=== PATIENT | female | born 1935 | race Hispanic/Latino ===

== ENCOUNTER 2016-12-16 10:54 | Inpatient (IN) | payer MEDICARE, BC ==
[2016-12-16] MEDS ORDERED: Sodium Chloride 0.9% 1,000 ML IV STA (11:21)
[2016-12-16] MEDS ORDERED: Pantoprazole 40 MG in Sodium Chloride 0.9% 100 ML IV STA (11:21)
--- NOTE | 2016-12-16 11:25 | ED PDOC ---
Arrival/HPI - General Chief Complaint: GI Problem Time Seen by Provider: 12/16/16 11:03 Historian: Patient - History of Present Illness Narrative History of Present Illness (Text): 12/16/16 11:23 81 year old female presents to the emergency department with dark vomiting overnight. Patient reports some epigastric pain. Dairy Technologist states patient sees Dr. Johnson. Denies blood thinner use. Denies other complaints. Symptom Onset: Gradual Symptom Course: Unchanged Modifying Factors (Text): None Associated Symptoms (Text): None Past Medical History - Provider Review Nursing Documentation Reviewed: Yes - Infectious Disease Hx of Infectious Diseases: None - Tetanus Immunization Tetanus Immunization: Unknown - Reproductive Menopause: Yes - Cardiac Hx Hypertension: Yes - Neurological HX Cerebrovascular Accident: Yes - Psychiatric Hx Depression: No Hx Emotional Abuse: No Hx Physical Abuse: No Hx Substance Use: No - Past Surgical History Past Surgical History: Unable to Obtain - Surgical History Hx Hysterectomy: Yes - Anesthesia Hx Anesthesia: No - Suicidal Assessment Feels Threatened In Home Enviroment: No Family/Social History - Physician Review Nursing Documentation Reviewed: Yes Family/Social History: Unknown Family HX Smoking Status: Unknown If Ever Smoked Hx Alcohol Use: No Hx Substance Use: No Hx Substance Use Treatment: No Allergies/Home Meds Allergies/Adverse Reactions: Allergies Sulfa (Sulfonamide Antibiotics) Allergy (Verified 12/16/16 15:39) RASH Home Medications: Home Meds Medication Instructions Recorded Confirmed Atenolol [Tenormin] 25 mg PO DAILY 12/16/16 12/16/16 Atorvastatin [Lipitor] 10 mg PO DIN 12/16/16 12/16/16 Calcium Carbonate [Oscal] 0 mg PO DAILY 12/16/16 12/16/16 Chromagen 1 12/16/16 Clorazepate Dipotassium [Tranxene 3.75 mg PO PRN 12/16/16 12/16/16 T-Tab] Hydroxychloroquine Sulfate 200 mg PO DAILY 12/16/16 12/16/16 Tramadol HCl/Acetaminophen 1 tab PO DAILY 12/16/16 12/16/16 [Acetaminophen-Tramadol HCl 325 mg-37.5 mg] Valsartan/Hydrochlorothiazide 1 each PO DAILY 12/16/16 12/16/16 [Diovan Hct 160-12.5 mg Tab] Zolpidem [Ambien] 5 mg PO PRN PRN 12/16/16 12/16/16 amLODIPine [Norvasc] 10 mg PO DAILY 12/16/16 12/16/16 Review of Systems - Physician Review All systems were reviewed & negative as marked: Yes - Review of Systems Respiratory: absent: SOB Gastrointestinal: Abdominal Pain (epigastric), Vomiting (dark) Neurological: absent: Dizziness Physical Exam Vital Signs Reviewed: Yes Vital Signs Temp Pulse Resp BP Pulse Ox 12/16/16 15:24 95 H 16 126/74 96 12/16/16 11:02 99.1 F 90 18 124/71 96 Temperature: Afebrile Blood Pressure: Normal Pulse: Regular Respiratory Rate: Normal Appearance: Positive for: Well-Appearing, Non-Toxic, Comfortable Pain Distress: None Mental Status: Positive for: Alert and Oriented X 3 - Systems Exam Head: Present: Atraumatic, Normocephalic Pupils: Present: PERRL Extroacular Muscles: Present: EOMI Conjunctiva: Present: Normal Mouth: Present: Moist Mucous Membranes Neck: Present: Normal Range of Motion Respiratory/Chest: Present: Clear to Auscultation, Good Air Exchange. No: Respiratory Distress, Accessory Muscle Use Cardiovascular: Present: Regular Rate and Rhythm, Normal S1, S2. No: Murmurs Abdomen: Present: Tenderness (Epigastric), Normal Bowel Sounds. No: Distention , Peritoneal Signs Rectal: Present: Other (Minimal stool, guaiac negative.) Back: Present: Normal Inspection Upper Extremity: Present: Normal Inspection. No: Cyanosis, Edema Lower Extremity: Present: Normal Inspection. No: Edema Neurological: Present: GCS=15, CN II-XII Intact, Speech Normal Skin: Present: Warm, Dry, Normal Color. No: Rashes Psychiatric: Present: Alert, Oriented x 3, Normal Insight, Normal Concentration Medical Decision Making ED Course and Treatment: Impression: 81 year old female presents to the emergency department with dark vomiting overnight at 12:00AM. Differential Diagnosis include but are not limited to: Bleed secondary to peptic ulcer disease Plan: -- EKG, Chest X-ray -- Protonix, Zofran, IV fluids -- Labs -- Reassess and disposition Prior Visits: Notes and results from previous visits were reviewed. Patient last seen in ED on 06/28/13 for chest pain and discharged home. Progress Notes: Chest X-ray Assessment Specialist: Mane Rao MD IMPRESSION: No active disease 12/16/16 11:57 Patient evaluated at bedside by Dr. Johnson. Labs pending. 12/16/16 12:36 Noted drop in H&H. Dr. Johnson requests observation and GI evaluation, accepts patient for admission. Abdominal soft, minimal epigastric tenderness with history of peptic ulcer disease. Suspect bleeding secondary to peptic ulcer disease - Lab Interpretations Lab Results: 12/16/16 11:45 12/16/16 11:45 Lab Results 12/16/16 11:45: WBC 12.4 H D, RBC 3.39 L, Hgb 10.7 L, Hct 31.9 L, MCV 94.1, MCH 31.6, MCHC 33.5, RDW 14.1, Plt Count 511 H, MPV 9.6, Gran % 79.7 H, Lymph % ( Auto) 10.6 L, Kimball % (Auto) 8.2 H, Eos % (Auto) 1.2 L, Baso % (Auto) 0.3, Gran # 9.90 H, Lymph # 1.3, Kimball # 1.0 H, Eos # 0.2, Baso # 0.04, PT 11.1, INR 1.03, APTT 27.5, Sodium 139, Potassium 3.3 L, Chloride 95 L, Carbon Dioxide 32, Anion Gap 15, BUN 19, Creatinine 0.6, Est GFR ( Amer) > 60, Est GFR (Non-Af Amer) > 60, Random Glucose 98, Calcium 9.2, Total Bilirubin 0.7, AST 20, ALT 27 , Alkaline Phosphatase 72, Lactate Dehydrogenase 419, Total Creatine Kinase 53, Troponin I < 0.01, Total Protein 7.4, Albumin 4.2, Globulin 3.2, Albumin/ Globulin Ratio 1.3, Amylase 119, Lipase 77, Blood Type O POSITIVE, Antibody Screen Negative, BBK History Checked No verified bt - RAD Interpretation Radiology Orders: 12/16/16 11:21 CHEST PORTABLE [RAD] Stat - EKG Interpretation EKG Interpretation (Text): EKG shows NSR at [address]/T changes Interpreted by ED Physician: Yes Type: 12 lead EKG - Medication Orders Current Medication Orders: Sodium Chloride (Sodium Chloride 0.9%) 1,000 mls @ 100 mls/hr IV .Q10H STA Stop: 12/16/16 21:20 Last Admin: 12/16/16 11:36 Dose: 100 MLS/HR eMAR Start Stop Document 12/16/16 11:36 SF (Rec: 12/16/16 11:37 SF [email or web address]) Intravenous Solution Start Date 12/16/16 Start Time 11:36 End Date 12/16/16 Pantoprazole Sodium (Protonix 40mg Ivpb) 100 mls @ 20 mls/hr IVPB .Q5H [facility] Last Admin: 12/16/16 13:26 Dose: 20 MLS/HR eMAR Start Stop Document 12/16/16 13:26 SF (Rec: 12/16/16 13:26 SF [email or web address]) Intravenous Solution Start Date 12/16/16 Start Time 13:26 End Date 12/16/16 Potassium Chloride (Potassium Chloride 20 Meq/100 Ml) 100 mls @ 50 mls/hr IVPB ONCE ONE Stop: 12/16/16 17:47 Loratadine (Claritin) 10 mg PO DAILY [facility] Last Admin: 12/16/16 16:11 Dose: 10 MG Discontinued Medications Pantoprazole Sodium 40 mg/ (Sodium Chloride) 100 mls @ 400 mls/hr IV STAT STA Stop: 12/16/16 11:35 Last Admin: 12/16/16 11:54 Dose: 400 MLS/HR eMAR Start Stop Document 12/16/16 11:54 SF (Rec: 12/16/16 11:54 SF [email or web address]) Intravenous Solution Start Date 12/16/16 Start Time 11:54 End Date 12/16/16 End time 12:09 Total Infusion Time 15 Potassium Chloride (Potassium Chloride 10 Meq/100 Ml) 100 mls @ 100 mls/hr IVPB Q2H [facility] Stop: 12/16/16 15:44 Last Admin: 12/16/16 16:11 Dose: 100 MLS/HR eMAR Start Stop Document 12/16/16 16:11 EQ (Rec: 12/16/16 16:11 EQ [id number]) Intravenous Solution Start Date 12/16/16 Start Time 16:11 Ondansetron HCl (Zofran Inj) 4 mg IVP STAT STA Stop: 12/16/16 11:22 Last Admin: 12/16/16 11:37 Dose: 4 MG IVP Administration Document 12/16/16 11:37 SF (Rec: 12/16/16 11:37 SF [email or web address]) Charges for Administration # of IVP Administrations 1 Pantoprazole Sodium (Protonix Inj) Confirm Administered Dose 40 mg .ROUTE .STK- MED ONE Stop: 12/16/16 11:28 Last Admin: 12/16/16 11:53 Dose: - Scribe Statement The provider has reviewed the documentation as recorded by the Leyla Mcclain Provider Scribe Attestation: All medical record entries made by the Leyla were at my direction and personally dictated by me. I have reviewed the chart and agree that the record accurately reflects my personal performance of the history, physical exam, medical decision making, and the department course for this patient. I have also personally directed, reviewed, and agree with the discharge instructions and disposition. Disposition/Present on Arrival - Present on Arrival Any Indicators Present on Arrival: No History of DVT/PE: No History of Uncontrolled Diabetes: No Urinary Catheter: No History of Decub. Ulcer: No History Surgical Site Infection Following: None - Disposition Have Diagnosis and Disposition been Completed?: Yes Diagnosis: Gastrointestinal hemorrhage Disposition: HOSPITALIZED Disposition Time: 16:40 Condition: FAIR
[2016-12-16 12:09] LABS: ADD MANUAL DIFF? NO
[2016-12-16 12:12] LABS: BASO # 0.04 K/mm3 (0.0-2.0); BASO % 0.3 % (0.0-3.0); EOS # 0.2 (0.0-0.7); EOS % 1.2 % (1.5-5.0); GRAN % 79.7 % (50.0-68.0); HEMATOCRIT 31.9 % (36.0-48.0); LYMPH # 1.3 (1.2-3.4); LYMPH % 10.6 % (22.0-35.0); MEAN CELL VOLUME 94.1 fL (80.0-105.0); MEAN CORPUSCULAR HEMOGLOBIN 31.6 pg (25.0-35.0); MEAN CORPUSCULAR HGB CONC 33.5 g/dl (31.0-37.0); MEAN PLATELET VOLUME 9.6 fl (7.0-11.0); MONO % 8.2 % (1.0-6.0); PLATELET COUNT 511 10^3/uL (120.0-450.0); RED CELL DISTRIBUTION WIDTH 14.1 % (11.5-14.5); WHITE BLOOD COUNT 12.4 10^3/ul (4.5-11.0)
--- NOTE | 2016-12-16 12:16 | RAD ---
HISTORY: abd pain COMPARISON: 06/28/2013 FINDINGS: LUNGS: No active pulmonary disease. PLEURA: No significant pleural effusion identified, no pneumothorax apparent. CARDIOVASCULAR: Normal. OSSEOUS STRUCTURES: No significant abnormalities. VISUALIZED UPPER ABDOMEN: Normal. OTHER FINDINGS: None. IMPRESSION: No active disease.
[2016-12-16 12:22] LABS: ALB/GLOB RATIO 1.3 (1.1-1.8); ALKALINE PHOSPHATASE 72 U/L (38-133); ALT/SGPT 27 U/L (7-56); AMYLASE 119 U/L (35-125); AST/SGOT 20 U/L (15-39); BILIRUBIN,TOTAL 0.7 mg/dL (0.2-1.3); BLOOD UREA NITROGEN 19 mg/dL (7-21); CALCIUM 9.2 mg/dL (8.4-10.5); CARBON DIOXIDE 32 mmol/L (21-33); CHLORIDE 95 mmol/L (98-107); GFR AFRICAN-AMERICAN > 60; GLUCOSE,RANDOM 98 mg/dL (70-110); LIPASE 77 U/L (23-300); POTASSIUM 3.3 mmol/L (3.6-5.0); SODIUM 139 mmol/L (132-148); TOTAL PROTEIN 7.4 g/dL (5.8-8.3)
[2016-12-16 12:33] LABS: INR 1.03 (0.93-1.08); PARTIAL THROMBOPLASTIN TIME 27.5 Seconds (23.7-30.8); TROPONIN I < 0.01 ng/mL
[2016-12-16] MEDS: Potassium Chloride 10 mEq 100 ML IVPB SCH ×2 (13:26→16:11)
[2016-12-16] MEDS: Pantoprazole 40mg/100ml IVPB 100 ML IVPB SCH ×3 (13:26→21:49)
[2016-12-16 14:20] LABS: PH,URINE 6.5 (4.7-8.0); URINE BILIRUBIN NEGATIVE (NEGATIVE); URINE BLOOD NEGATIVE (NEGATIVE); URINE GLUCOSE (UA) NEGATIVE (NEGATIVE); URINE KETONE NEGATIVE (NEGATIVE); URINE LEUKOCYTE ESTERASE NEGATIVE Leu/uL (NEGATIVE); URINE PROTEIN NEGATIVE mg/dL (<30 mg/dL); URINE UROBILINOGEN 0.2 E.U./dL (<1 E.U./dL)
[2016-12-16 14:21] LABS: URINE APPEARANCE CLEAR (CLEAR); URINE COLOR YELLOW (YELLOW)
--- NOTE | 2016-12-16 14:37 | CARD ---
APPROVED REPORT EKG Measurement Heart [id number] <Conclusion> Sinus rhythm with premature supraventricular complexes Otherwise normal ECG
--- NOTE | 2016-12-16 15:01 | CP.PCM.CON ---
<Juan Salmon - Last Filed: 12/16/16 15:50> History of Present Illness - History of Present Illness History of Present Illness: This is a general surgery consult note for Dr. Johnson. CC: intermittent epigastric pain and hematemesis x 4 weeks HPI: 81 yo F with PMHx of GI bleeding, gastric ulcer, and HTN presents to ED C/ O intermittent epigastric pain and hematemesis x 4 weeks. Episodes occur 1 to 2 times per week and follow food intake 3 to 4 hours prior to vomiting. Vomitus consists of chyme mixed with blood or coffee-ground emesis. Pt denies fevers, chills, recent weight loss, nausea, diarrhea, constipation, dizziness, and palpitations. PMHx: GI bleeding, gastric ulcer, HTN, CVA, cerebral palsy, rheumatoid palsy, developmental dysplasia of the hip PSHx: hysterectomy, surgery to correct DDH All: sulfa, sulfonamide (rash) FHx: mother had CVA. Father had colon ca. Review of Systems - Constitutional Constitutional: absent: Chills, Fever, Weight Loss - Cardiovascular Cardiovascular: absent: Dyspnea, Dyspnea on Exertion, Irregular Heart Rhythm, Lightheadedness, Orthopnea, Palpitations, Syncope - Respiratory Respiratory: absent: Hemoptysis, Dyspnea on Exertion - Gastrointestinal Gastrointestinal: Abdominal Pain, Coffee Ground Emesis, Hematemesis. absent: Change in Bowel Habits, Change in Stool Character, Constipation, Diarrhea, Loose Stools, Nausea - Musculoskeletal Musculoskeletal: Deformity, Muscle Weakness, Stiffness - Integumentary Integumentary: Pruritus - Neurological Neurological: Abnormal Movements, Abnormal Speech, Lack of Coordination Past Patient History - Infectious Disease Hx of Infectious Diseases: None - Tetanus Immunizations Tetanus Immunization: Unknown - Past Social History Smoking Status: Unknown If Ever Smoked - CARDIAC Hx Hypertension: Yes - NEUROLOGICAL HX Cerebrovascular Accident: Yes - MUSCULOSKELETAL/RHEUMATOLOGICAL Hx Rheumatoid Arthritis: Yes - GASTROINTESTINAL Hx Gastrointestinal Disorders: Yes Hx Ulcer: Yes - PSYCHIATRIC Hx Depression: No Hx Emotional Abuse: No Hx Physical Abuse: No Hx Substance Use: No - SURGICAL HISTORY Hx Hysterectomy: Yes - ANESTHESIA Hx Anesthesia: No Meds Allergies/Adverse Reactions: Allergies Allergy/AdvReac Type Severity Reaction Status Date / Time Sulfa (Sulfonamide Allergy RASH Verified 12/16/16 15:39 Antibiotics) - Medications Medications: Current Medications Sodium Chloride (Sodium Chloride 0.9%) 1,000 mls @ 100 mls/hr IV .Q10H STA Stop: 12/16/16 21:20 Last Admin: 12/16/16 11:36 Dose: 100 mls/hr Pantoprazole Sodium (Protonix 40mg Ivpb) 100 mls @ 20 mls/hr IVPB .Q5H [facility] Last Admin: 12/16/16 13:26 Dose: 20 mls/hr Potassium Chloride (Potassium Chloride 10 Meq/100 Ml) 100 mls @ 100 mls/hr IVPB Q2H [facility] Stop: 12/16/16 15:44 Last Admin: 12/16/16 13:26 Dose: 100 mls/hr Loratadine (Claritin) 10 mg PO DAILY [facility] Physical Exam - Constitutional Appears: Non-toxic, No Acute Distress - Head Exam Head Exam: ATRAUMATIC, NORMOCEPHALIC - Eye Exam Eye Exam: Normal appearance, PERRL. absent: Conjunctival injection, Nystagmus, Periorbital swelling, Scleral icterus Pupil Exam: NORMAL ACCOMODATION, PERRL - ENT Exam ENT Exam: Mucous Membranes Moist, Normal Exam, Normal External Ear Exam, Normal Oropharynx - Neck Exam Neck exam: Positive for: Full Rom, Normal Inspection. Negative for: Lymphadenopathy, Meningismus, Tenderness, Thyromegaly - Respiratory Exam Respiratory Exam: Clear to Auscultation Bilateral, NORMAL BREATHING PATTERN. absent: Accessory Muscle Use, Chest Wall Tenderness, Decreased Breath Sounds, Prolonged Expiratory Phase, Rales, Rhonchi, Wheezes, Respiratory Distress, Stridor - Cardiovascular Exam Cardiovascular Exam: REGULAR RHYTHM, RRR, +S1, +S2. absent: Bradycardia, Tachycardia, Clicks, Diastolic murmur, Gallop, Irregular Rhythm, JVD, Rubs, +S4 , Systolic Murmur - GI/Abdominal Exam GI & Abdominal Exam: Hyperactive Bowel Sounds, Soft. absent: Bruit, Diminished Bowel Sounds, Distended, Firm, Hernia, Mass, Organomegaly, Pulsatile Mass, Rebound, Rigid, Tenderness - Rectal Exam Rectal Exam: Deferred - Extremities Exam Extremities exam: Positive for: normal inspection. Negative for: joint swelling , pedal edema, tenderness - Neurological Exam Neurological exam: Alert, CN II-XII Intact - Psychiatric Exam Psychiatric exam: Normal Affect - Skin Skin Exam: Intact, Pallor, Warm Results - Vital Signs Recent Vital Signs: Last Vital Signs Temp 99.1 F 12/16/16 11:02 Pulse 90 12/16/16 11:02 Resp 18 12/16/16 11:02 BP 124/71 12/16/16 11:02 Pulse Ox 96 12/16/16 11:02 - Labs Result Diagrams: 12/16/16 11:45 12/16/16 11:45 Labs: Laboratory Results - last 24 hr 12/16/16 14:00 Urine Color Yellow Urine Appearance Clear Urine pH 6.5 Ur Specific Arpin 1.015 Urine Protein Negative Urine Glucose (UA) Negative Urine Ketones Negative Urine Blood Negative Urine Nitrate Negative Urine Bilirubin Negative Urine Urobilinogen 0.2 Ur Leukocyte Esterase Negative Assessment & Plan - Assessment and Plan (Free Text) Assessment: Assessment: - This is an 81 yo F with PMHx of GI bleeding and gastric ulcer C/O intermittent epigastric pain and hematemesis most likely secondary to gastric ulcer and H. pylori infection. Plan: - KCl. - clear liquid diet - Rx omeprazole, loratadine. - Follow hemoglobin and hematocrit in AM. - Consulte GI. Appreciate recommendations. - H. pylori serum Ag. <Hitesh Johnson - Last Filed: 12/16/16 18:31> Meds - Medications Medications: Current Medications Sodium Chloride (Sodium Chloride 0.9%) 1,000 mls @ 100 mls/hr IV .Q10H STA Stop: 12/16/16 21:20 Last Admin: 12/16/16 11:36 Dose: 100 mls/hr Pantoprazole Sodium (Protonix 40mg Ivpb) 100 mls @ 20 mls/hr IVPB .Q5H [facility] Last Admin: 12/16/16 13:26 Dose: 20 mls/hr Loratadine (Claritin) 10 mg PO DAILY [facility] Last Admin: 12/16/16 16:11 Dose: 10 mg Results - Vital Signs Recent Vital Signs: Last Vital Signs Temp 98 F 12/16/16 17:48 Pulse 92 H 12/16/16 17:48 Resp 18 12/16/16 17:48 BP 128/65 12/16/16 17:48 Pulse Ox 95 12/16/16 17:48 - Labs Result Diagrams: 12/16/16 11:45 12/16/16 11:45 Labs: Laboratory Results - last 24 hr 04/17/17 04/17/17 14:00 15:15 Urine Color Yellow Urine Appearance Clear Urine pH 6.5 Ur Specific Arpin 1.015 Urine Protein Negative Urine Glucose (UA) Negative Urine Ketones Negative Urine Blood Negative Urine Nitrate Negative Urine Bilirubin Negative Urine Urobilinogen 0.2 Ur Leukocyte Esterase Negative Blood Type Confirm O POSITIVE Assessment & Plan - Assessment and Plan (Free Text) Assessment: This Report is a History and Physical Exam not consultation Done under my direct supervision Adam Johnson MD FACS
[2016-12-16] MEDS ORDERED: Potassium Chloride 20 mEq 100 ML IVPB ONE (15:48)
--- NOTE | 2016-12-16 19:59 | CON ---
DATE: 12/16/2016 This patient was seen and evaluated earlier in the Emergency Room. This is an 81-year-old patient wi th a history of rheumatoid arthritis, developmental dysplasia of the hip, gastric ulcer, status post cerebrovascular accident, cerebral palsy, was found to have coffee ground vomitus earlier today and s he was brought to the Emergency Room. The patient has been taken care of by leather tanner at home, and h er friend visits at least 3 times a week. The patient denies any abdominal pain. No further episode s of vomiting noticed in the ER. OTHER PAST MEDICAL HISTORY: Significant for gastrointestinal bleeding. The patient did have bleedin g in 2010; found to have gastric ulcers, duodenal ulcers. The patient has history of NSAID in the [facility] ([place] The patient's H. pylori serology at that time was negative. Her other past medical history was significant for hysterectomy, surgery for correction of the DDH. ALLERGIES: SULFA. FAMILY HISTORY: Positive for father had a colon carcinoma. REVIEW OF SYSTEMS: Positive as above; other systems reviewed. PHYSICAL EXAMINATION: GENERAL: The patient is lying on the bed, not in acute distress, with a temperature 98, pulse 92, bl ood pressure 128/65. HEENT: Atraumatic, anicteric. NECK: Supple. HEART: S1, S2 heard. LUNGS: Bilateral normal vesicular breath sounds. ABDOMEN: Soft. There is no mass palpable. No tenderness. EXTREMITIES: No mass palpable. No tenderness. No edema. No cyanosis. LABORATORY DATA: Hemoglobin 10.7, hematocrit 31.9, WBC is 12.4, platelets 511, BUN 19, creatinine 0. 9. IMPRESSION: This 81-year-old patient with a past medical history of gastric ulcer, gastrointestinal bleeding in 2010, admitted with coffee ground vomitus and hemoglobin was 10.7. Her hemoglobin in 2016 was 13.1. Clearly there is a significant drop in the hemoglobin. The differential diagnosis sh ould include peptic ulcer disease, gastric ulcer, duodenal ulcer and erosive esophagitis to be consid ered and lower gastrointestinal etiology also is considered. 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 I would recommend: 1. Followup of the hemoglobin and hematocrit. 2. IV Protonix. 3. I will keep the patient n.p.o. except medication if the patient can tolerate the p.o. medication. 4. Will continue to closely follow up her care. 5. I did discuss with the patient at length. The patient has been told about the need for endoscopy to further evaluate in view of the significant coffee ground vomitus and drop in blood count, and th e patient is agreeable. At the present time, will be considered ____ tomorrow. 6. Will also discuss with the patient's sister (Delaney Monzon - telephone number is [phone]). Thank you very much for allowing us to participate in the care of the patient. Erika Grey MD cc: [id number] TT: 12/16/2016 19:59:11 Confirmation # [id number] Dictation # [id number] mn
--- NOTE | 2016-12-16 22:13 | CP.PCM.PN ---
Subjective - Date & Time of Evaluation Date of Evaluation: 12/16/16 Time of Evaluation: 22:07 - Subjective Subjective: S: Patient seen at bedside. Requests a sleeping pill. States that she always takes ambien at home. She requests an ambien. Has no other complaints at this time. Pertinent medical record was reviewed. O: Last Vital Signs 3 Temp 98 F 12/16/16 17:48 Pulse 89 12/16/16 18:00 Resp 18 12/16/16 17:48 BP 128/65 12/16/16 17:48 Pulse Ox 95 12/16/16 17:48 Awake, alert, not in distress. LUNGS:Normal breathing pattern. A:Adjustment insomnia. P:Ambien 5 mg PO x 1. Objective - Vital Signs/Intake and Output Vital Signs (last 24 hours): Temp Pulse Resp BP Pulse Ox 98 F 89 18 128/65 95 12/16/16 17:48 12/16/16 18:00 12/16/16 17:48 12/16/16 17:48 12/16/16 17:48 - Medications Medications: Current Medications Pantoprazole Sodium (Protonix 40mg Ivpb) 100 mls @ 20 mls/hr IVPB .Q5H [facility] Last Admin: 12/16/16 21:49 Dose: 20 mls/hr Loratadine (Claritin) 10 mg PO DAILY [facility] Last Admin: 12/16/16 16:11 Dose: 10 mg Zolpidem Tartrate (Ambien) 5 mg PO STAT STA PRN Reason: Protocol Stop: 12/16/16 22:07 - Labs Labs: PT 11.1 Seconds (9.9-11.8) 12/16/16 11:45 INR 1.03 (0.93-1.08) 12/16/16 11:45 APTT 27.5 Seconds (23.7-30.8) 12/16/16 11:45
[2016-12-16 23:08] VITALS: BMI 25.9
[2016-12-16] MEDS ORDERED: Pneumococcal 23-Valent Vaccine IM ONE (23:08)
[2016-12-17] MEDS: Pantoprazole 40mg/100ml IVPB 100 ML IVPB SCH ×4 (04:21→22:00)
[2016-12-17] MEDS ORDERED: CLORAZEPATE DIPOTASSIUM 3.75 MG PO SCH (05:15)
[2016-12-17] MEDS: Sodium Chloride 0.9% 1,000 ML IV SCH ×2 (06:41→18:42)
[2016-12-17 07:02] LABS: ADD MANUAL DIFF? NO
[2016-12-17 07:13] LABS: BASO # 0.05 K/mm3 (0.0-2.0); BASO % 0.4 % (0.0-3.0); EOS # 0.6 (0.0-0.7); EOS % 4.8 % (1.5-5.0); GRAN # 9.46 (1.4-6.5); GRAN % 75.1 % (50.0-68.0); HEMATOCRIT 28.2 % (36.0-48.0); LYMPH # 1.6 (1.2-3.4); LYMPH % 12.6 % (22.0-35.0); MEAN CELL VOLUME 94.9 fL (80.0-105.0); MEAN CORPUSCULAR HEMOGLOBIN 31.6 pg (25.0-35.0); MEAN CORPUSCULAR HGB CONC 33.3 g/dl (31.0-37.0); MEAN PLATELET VOLUME 9.5 fl (7.0-11.0); MONO # 0.9 (0.1-0.6); MONO % 7.1 % (1.0-6.0); PLATELET COUNT 465 10^3/uL (120.0-450.0); RED CELL DISTRIBUTION WIDTH 14.3 % (11.5-14.5); WHITE BLOOD COUNT 12.6 10^3/ul (4.5-11.0)
--- NOTE | 2016-12-17 07:32 | CP.PCM.PCO ---
Physician Communication Note - Physician Communication Note Physician Communication Note: HgB down 9.4-For EGD today
[2016-12-17] MEDS ORDERED: Potassium Chloride 20 mEq 100 ML IVPB ONE (08:24)
[2016-12-17 08:41] LABS: ALB/GLOB RATIO 1.3 (1.1-1.8); ALKALINE PHOSPHATASE 60 U/L (38-133); ALT/SGPT 28 U/L (7-56); AST/SGOT 17 U/L (15-39); BILIRUBIN,TOTAL 0.8 mg/dL (0.2-1.3); BLOOD UREA NITROGEN 12 mg/dL (7-21); CALCIUM 8.5 mg/dL (8.4-10.5); CARBON DIOXIDE 29 mmol/L (21-33); CHLORIDE 103 mmol/L (98-107); GFR AFRICAN-AMERICAN > 60; GLUCOSE,RANDOM 72 mg/dL (70-110); POTASSIUM 3.6 mmol/L (3.6-5.0); SODIUM 142 mmol/L (132-148); TOTAL PROTEIN 5.9 g/dL (5.8-8.3)
[2016-12-17] MEDS: Albuterol-Ipratrop 3 mg / 0.5 (3 ml) UD IH SCH ×2 (13:31→20:19)
[2016-12-17] MEDS ORDERED: Etomidate 20 mg/10ml Inj IV ONE (16:56)
[2016-12-17] MEDS ORDERED: Propofol 10 mg/ml Inj (20 ML) ONE (16:56)
--- NOTE | 2016-12-17 18:24 | CP.PCM.PCO ---
Physician Communication Note - Physician Communication Note Physician Communication Note: Dx Severe Esophageal Ulcerations=Etiology Bleeding
[2016-12-17] MEDS: Multivitamin With Minerals Tab PO SCH (18:42)
[2016-12-17] MEDS: TraMADol/Apap 37.5/325 mg Tab PO SCH (18:43)
--- NOTE | 2016-12-17 23:02 | CP.PCM.PN ---
Subjective - Date & Time of Evaluation Date of Evaluation: 12/17/16 Time of Evaluation: 22:57 - Subjective Subjective: S:Patient requested sleeping pill again. States that she takes Ambien 5 mg daily at home. Has no other acute symptoms now. Pertinent medical record was reviewed. O: Last Vital Signs 3 Temp 98.8 F 12/17/16 17:51 Pulse 90 12/17/16 18:42 Resp 15 12/17/16 17:51 BP 150/75 12/17/16 18:42 Pulse Ox 97 12/17/16 17:51 Awake, alert, not in distress. LUNGS:Normal breathing pattern. A:Adjustment insomnia. P:Ambien 5 mg PO stat. Objective - Vital Signs/Intake and Output Vital Signs (last 24 hours): Temp Pulse Resp BP Pulse Ox 98.8 F 90 15 150/75 97 12/17/16 17:51 12/17/16 18:42 12/17/16 17:51 12/17/16 18:42 12/17/16 17:51 Intake and Output: 12/17/16 12/18/16 18:59 06:59 Intake Total 75 Output Total 600 Balance -525 - Medications Medications: Current Medications Albuterol/Ipratropium (Duoneb 3 Mg/0.5 Mg (3 Ml) Ud) 3 ml IH [id number] [facility] Last Admin: 12/17/16 20:19 Dose: 3 ml Albuterol/Ipratropium (Duoneb 3 Mg/0.5 Mg (3 Ml) Ud) 3 ml IH Q2H PRN PRN Reason: Shortness of Breath Amlodipine Besylate (Norvasc) 10 mg PO DAILY [facility] Last Admin: 12/17/16 18:40 Dose: 10 mg Atenolol (Tenormin) 25 mg PO DAILY [facility] Last Admin: 12/17/16 18:42 Dose: 25 mg Atorvastatin Calcium (Lipitor) 10 mg PO DIN [facility] Last Admin: 12/17/16 18:39 Dose: 10 mg Hydrochlorothiazide (Microzide) 12.5 mg PO DAILY [facility] Last Admin: 12/17/16 18:41 Dose: 12.5 mg Hydroxychloroquine Sulfate (Plaquenil) 200 mg PO DAILY [facility] Last Admin: 12/17/16 18:41 Dose: 200 mg Pantoprazole Sodium (Protonix 40mg Ivpb) 100 mls @ 20 mls/hr IVPB .Q5H [facility] Last Admin: 12/17/16 22:00 Dose: 20 mls/hr Sodium Chloride (Sodium Chloride 0.9%) 1,000 mls @ 100 mls/hr IV .Q10H [facility] Last Admin: 12/17/16 18:42 Dose: 100 mls/hr Loratadine (Claritin) 10 mg PO DAILY [facility] Last Admin: 12/17/16 18:39 Dose: 10 mg Losartan Potassium (Cozaar) 100 mg PO DAILY [facility] Last Admin: 12/17/16 18:39 Dose: 100 mg Multivitamins/Minerals (Therapeutic-M Tab) 1 tab PO DAILY [facility] Last Admin: 12/17/16 18:42 Dose: 1 tab Non-Formulary Medication (Clorazepate Dipotassium [Tranxene T-Tab]) 3.75 mg PO PRN [facility] Sucralfate (Carafate Tab) 1 gm PO BID [facility] Last Admin: 12/17/16 18:45 Dose: 1 gm Tramadol/Acetaminophen (Ultracet 37.5/325 Mg) 1 tab PO DAILY [facility] Last Admin: 12/17/16 18:43 Dose: Not Given - Labs Labs: 12/17/16 06:30 12/17/16 06:30 PT 11.1 Seconds (9.9-11.8) 12/16/16 11:45 INR 1.03 (0.93-1.08) 12/16/16 11:45 APTT 27.5 Seconds (23.7-30.8) 12/16/16 11:45
[2016-12-17] MEDS: Albuterol-Ipratrop 3 mg / 0.5 (3 ml) UD IH PRN (23:16)
--- NOTE | 2016-12-17 23:22 | PN ---
DATE: 12/17/2016 SUBJECTIVE: This patient has no further episodes of vomiting blood. Comfortable. PHYSICAL EXAMINATION: VITAL SIGNS: Afebrile, blood pressure is 150/75, pulse 90. HEENT: Atraumatic, anicteric. NECK: Supple. HEART: S1, S2 heard. LUNGS: Bilateral normal vesicular breath sounds. ABDOMEN: Soft. There is no tenderness. LABORATORY DATA: Hemoglobin 9.4, hematocrit 28.2, WBC is 12.6, platelets of 465. The patient underw ent . ASSESSMENT: This 81-year-old patient with a past history of cerebral palsy, status post cerebrovascu lar accident, questionable rheumatoid, admitted with a history of gastrointestinal bleeding, gastric and duodenal ulcers in the past, admitted with coffee ground vomitus. Informed consent was obtained. The patient went for upper GI. Upper GI endoscopy revealed LA grade C esophagitis with esophageal ulcerations extending up to 25 cm level, more than 11 cm of esophageal area had multiple large ulcera tions. The patient also has a cm of hiatus hernia which is combined type of hernia. RECOMMENDATIONS: We would recommend: 1. To continue the high dose PPI. 2. The patient would benefit from the pureed diet or soft diet, chew it well. One of the possibilit ies of this ulceration could be related to the food . The patient may benefit with repeating en doscopy in about 2 months' time to evaluate the healing of the ulceration. Thank you very much for allowing us to participate in the care of the patient. Erika Grye MD cc: [id number] TT: 12/17/2016 23:21:50 Confirmation # [id number] Dictation # [id number]
[2016-12-18] MEDS: Albuterol-Ipratrop 3 mg / 0.5 (3 ml) UD IH SCH ×4 (01:38→19:55)
[2016-12-18] MEDS: Pantoprazole 40mg/100ml IVPB 100 ML IVPB SCH ×2 (02:29→08:01)
[2016-12-18 07:30] LABS: HEMATOCRIT 26.5 % (36.0-48.0); MEAN CELL VOLUME 95.3 fL (80.0-105.0); MEAN CORPUSCULAR HGB CONC 33.6 g/dl (31.0-37.0); MEAN PLATELET VOLUME 9.5 fl (7.0-11.0); RED CELL DISTRIBUTION WIDTH 14.2 % (11.5-14.5); WHITE BLOOD COUNT 13.7 10^3/ul (4.5-11.0)
[2016-12-18 07:37] LABS: ALB/GLOB RATIO 1.1 (1.1-1.8); ALKALINE PHOSPHATASE 51 U/L (38-133); ALT/SGPT 29 U/L (7-56); AST/SGOT 26 U/L (15-39); BILIRUBIN,TOTAL 0.8 mg/dL (0.2-1.3); BLOOD UREA NITROGEN 7 mg/dL (7-21); CALCIUM 7.8 mg/dL (8.4-10.5); CARBON DIOXIDE 28 mmol/L (21-33); CHLORIDE 105 mmol/L (98-107); GFR AFRICAN-AMERICAN > 60; GLUCOSE,RANDOM 75 mg/dL (70-110); POTASSIUM 3.5 mmol/L (3.6-5.0); SODIUM 140 mmol/L (132-148); TOTAL PROTEIN 6.1 g/dL (5.8-8.3)
--- NOTE | 2016-12-18 07:53 | CP.PCM.PCO ---
Physician Communication Note - Physician Communication Note Physician Communication Note: HgB 8.9/Rx started-?liquids PO
[2016-12-18] MEDS ORDERED: Potassium Chloride 40 mEq/30 ml LIQ UD PO ONE (08:24)
[2016-12-18] MEDS ORDERED: Sodium Chloride 0.9% 1,000 ML IV SCH (09:08)
--- NOTE | 2016-12-18 09:26 | PQF ANEMIA ---
This form is a permanent part of the medical record Dr. Johnson, Please document type and severity of anemia present in this patient. Clarification of your documentation is requested to better reflect the severity of illness and intensity of treatment of your patient. Indicators present [x] Anemia [x] Drop in H&H from []_10.7/31.9__ to []__8.9/26.5_ [] Hypotension [x] GI Bleed [] Transfusion(s) [] Acute bleed other sites [] Tachycardia [] Surgical Procedure Blood Loss (expected not a complication) Other:[x]___Finding of esophageal ulcer on EGD___ Location in the medical record that reflects the above clinical findings: [] Treatment Provided: [] PHYSICIAN'S RESPONSE Based on your medical judgment of the clinical indicators outlined above, are you treating this patient for a known or suspected: [] Acute blood loss anemia [] Chronic blood loss anemia [x] Acute on Chronic blood loss anemia [] Anemia due to malignancy [] Anemia due to chemotherapy or radiation therapy [] Anemia of Chronic Disease, please specify: [] [x] Other, please indicate type of anemia [xEsophageal ulceration]____ [] If Unable to Determine, please check the box, sign and date. Present On Admission (POA) Indicator: [x] Present at the time of admission [] Not present at the time of admission [] Clinically Undetermined In responding to this query, please exercise your independent professional judgment. The fact that a question is asked does not imply that any particular answer is desired or expected. Thank you for your clarification on this documentation. If you have any questions please call:[ ] * Thank you, [ ]Kamryn Erazo [facility] #[id number] bioprocessing manufacturing technician LOVELY
[2016-12-18] MEDS: TraMADol/Apap 37.5/325 mg Tab PO SCH (11:39)
[2016-12-18] MEDS: Multivitamin With Minerals Tab PO SCH (11:39)
[2016-12-18 12:33] LABS: VITAMIN D 25 OH TOTAL 34.8 NG/ML (30.0-100.0)
[2016-12-18 14:13] LABS: FOLATE > 20.0 ng/mL
[2016-12-18 15:52] LABS: ADD MANUAL DIFF? NO
[2016-12-18 16:03] LABS: BASO # 0.05 K/mm3 (0.0-2.0); BASO % 0.4 % (0.0-3.0); EOS # 0.7 (0.0-0.7); EOS % 4.9 % (1.5-5.0); GRAN # 10.39 (1.4-6.5); GRAN % 72.9 % (50.0-68.0); HEMATOCRIT 27.6 % (36.0-48.0); LYMPH % 14.1 % (22.0-35.0); MEAN CELL VOLUME 94.8 fL (80.0-105.0); MEAN CORPUSCULAR HEMOGLOBIN 31.3 pg (25.0-35.0); MEAN PLATELET VOLUME 9.3 fl (7.0-11.0); MONO # 1.1 (0.1-0.6); MONO % 7.7 % (1.0-6.0); PLATELET COUNT 453 10^3/uL (120.0-450.0); RED CELL DISTRIBUTION WIDTH 14.2 % (11.5-14.5); WHITE BLOOD COUNT 14.2 10^3/ul (4.5-11.0)
[2016-12-18] MEDS: Pantoprazole 40 mg EC Tab PO SCH (17:51)
[2016-12-18] MEDS: Albuterol-Ipratrop 3 mg / 0.5 (3 ml) UD IH PRN (23:07)
--- NOTE | 2016-12-18 23:38 | PN ---
DATE: 12/18/2016 SUBJECTIVE: This patient was seen and evaluated earlier and I spoke with the patient's caregiver who was also at bedside. The patient is on a pureed diet, tolerating well. PHYSICAL EXAMINATION: VITAL SIGNS: Temperature is 99, blood pressure is 96/63, pulse 68. HEENT: Atraumatic, anicteric. NECK: Supple. HEART: S1, S2 heard. LUNGS: Bilateral air entry present. ABDOMEN: Soft. No tenderness. LABORATORY DATA: The patient's hemoglobin is 9.1, hematocrit 27.6, WBC 14.2, platelets 453. BUN 7, creatinine 0.5. IMPRESSION: This is an 81-year-old patient who has a history of cerebral palsy, cerebrovascular acci dent, question of rheumatoid, admitted with gastrointestinal bleeding and coffee ground vomitus. Upp er gastrointestinal endoscopy revealed multiple esophageal ulcerations extending from 25 cm level of the esophagus to 35 cm level, with endogastritis. No duodenal ulcers, no gastric ulcer noticed. The likely cause for the coffee ground vomitus is probably from these ulcerations. It is reasonable to continue the high dose proton pump inhibitor. Followup of the hemoglobin and hematocrit. The patien t is presently on Protonix, as well as the Carafate. The patient is tolerating a diet. The patient i s presently on Protonix twice daily, along with the Carafate. The patient would need a repeat endosc opy in about 2-3 months' time. It is reasonable to allow the patient to have a pureed diet at the pr esent time with supplements. Thank you very much for allowing me to participate in the care of the patient. Erika Grey MD cc: [id number] TT: 12/18/2016 23:37:24 Confirmation # [id number] Dictation # [id number] dn
[2016-12-19] MEDS: Albuterol-Ipratrop 3 mg / 0.5 (3 ml) UD IH SCH ×3 (02:52→13:16)
[2016-12-19 06:45] VITALS: O2SAT 95
[2016-12-19 08:17] LABS: HEMATOCRIT 29.8 % (36.0-48.0); MEAN CELL VOLUME 94.6 fL (80.0-105.0); MEAN CORPUSCULAR HEMOGLOBIN 31.4 pg (25.0-35.0); MEAN CORPUSCULAR HGB CONC 33.2 g/dl (31.0-37.0); MEAN PLATELET VOLUME 8.9 fl (7.0-11.0); RED CELL DISTRIBUTION WIDTH 14.3 % (11.5-14.5); WHITE BLOOD COUNT 10.3 10^3/ul (4.5-11.0)
[2016-12-19] MEDS ORDERED: Potassium Chloride 40 mEq/30 ml LIQ UD PO ONE (08:17)
[2016-12-19] MEDS: Pantoprazole 40 mg EC Tab PO SCH (08:40)
[2016-12-19 08:53] LABS: ALB/GLOB RATIO 1.1 (1.1-1.8); ALKALINE PHOSPHATASE 60 U/L (38-133); ALT/SGPT 28 U/L (7-56); AST/SGOT 29 U/L (15-39); BILIRUBIN,TOTAL 0.6 mg/dL (0.2-1.3); BLOOD UREA NITROGEN 5 mg/dL (7-21); CALCIUM 8.5 mg/dL (8.4-10.5); CARBON DIOXIDE 30 mmol/L (21-33); CHLORIDE 102 mmol/L (98-107); GFR AFRICAN-AMERICAN > 60; GLUCOSE,RANDOM 88 mg/dL (70-110); POTASSIUM 3.6 mmol/L (3.6-5.0); SODIUM 141 mmol/L (132-148); TOTAL PROTEIN 6.7 g/dL (5.8-8.3)
--- NOTE | 2016-12-19 09:07 | CP.PCM.PCO ---
Physician Communication Note - Physician Communication Note Physician Communication Note: n 9.9:Plan DC now-carafateBID/PPI BID
[2016-12-19] MEDS: Multivitamin With Minerals Tab PO SCH (10:44)
[2016-12-19] MEDS: TraMADol/Apap 37.5/325 mg Tab PO SCH (10:44)
[2016-12-19 12:07] VITALS: BP 124/60; PULSE 77; RESP 16; TEMP 98.6
--- NOTE | 2016-12-19 12:47 | CP.PCM.PCO ---
Physician Communication Note - Physician Communication Note Physician Communication Note: D/C home-carafate bid/nexium bid-office 1 week
--- NOTE | 2016-12-19 13:34 | CP.PCM.DIS ---
Provider - Provider Date of Admission: 12/16/16 18:30 Attending physician: Hitesh Johnson MD Primary care physician: Hitesh Johnson MD Consults: GI - Dr. Grey Time Spent in preparation of Discharge (in minutes): 45 Diagnosis - Discharge Diagnosis (1) GI bleed Status: Chronic Hospital Course - Lab Results Lab Results: Most Recent Lab Values WBC 10.3 10^3/ul (4.5-11.0) D 12/19/16 08:05 RBC 3.15 10^6/uL (3.5-6.1) L 12/19/16 08:05 Hgb 9.9 gm/dL (12.0-16.0) L 12/19/16 08:05 Hct 29.8 % (36.0-48.0) L 12/19/16 08:05 MCV 94.6 fL (80.0-105.0) 12/19/16 08:05 MCH 31.4 pg (25.0-35.0) 12/19/16 08:05 MCHC 33.2 g/dl (31.0-37.0) 12/19/16 08:05 RDW 14.3 % (11.5-14.5) 12/19/16 08:05 Plt Count 460 10^3/uL (120.0-450.0) H 12/19/16 08:05 MPV 8.9 fl (7.0-11.0) 12/19/16 08:05 Gran % 72.9 % (50.0-68.0) H 12/18/16 15:45 Lymph % (Auto) 14.1 % (22.0-35.0) L 12/18/16 15:45 [place] % (Auto) 7.7 % (1.0-6.0) H 12/18/16 15:45 Eos % (Auto) 4.9 % (1.5-5.0) 12/18/16 15:45 Baso % (Auto) 0.4 % (0.0-3.0) 12/18/16 15:45 Gran # 10.39 (1.4-6.5) H 12/18/16 15:45 Lymph # 2.0 (1.2-3.4) 12/18/16 15:45 [place] # 1.1 (0.1-0.6) H 12/18/16 15:45 Eos # 0.7 (0.0-0.7) 12/18/16 15:45 Baso # 0.05 K/mm3 (0.0-2.0) 12/18/16 15:45 PT 11.1 Seconds (9.9-11.8) 12/16/16 11:45 INR 1.03 (0.93-1.08) 12/16/16 11:45 APTT 27.5 Seconds (23.7-30.8) 12/16/16 11:45 Sodium 141 mmol/L (132-148) 12/19/16 08:05 Potassium 3.6 mmol/L (3.6-5.0) 12/19/16 08:05 Chloride 102 mmol/L (98-107) 12/19/16 08:05 Carbon Dioxide 30 mmol/L (21-33) 12/19/16 08:05 Anion Gap 13 (10-20) 12/19/16 08:05 BUN 5 mg/dL (7-21) L 12/19/16 08:05 Creatinine 0.6 mg/dL (0.5-1.4) 12/19/16 08:05 Est GFR ( Amer) > 60 12/19/16 08:05 Est GFR (Non-Af Amer) > 60 12/19/16 08:05 Random Glucose 88 mg/dL (70-110) 12/19/16 08:05 Calcium 8.5 mg/dL (8.4-10.5) 12/19/16 08:05 Iron 18 ug/dL (45-180) L 12/18/16 06:30 TIBC 193 ug/dL (265-497) L 12/18/16 06:30 % Saturation 9 % (20-55) L 12/18/16 06:30 Total Bilirubin 0.6 mg/dL (0.2-1.3) 12/19/16 08:05 AST 29 U/L (15-39) 12/19/16 08:05 ALT 28 U/L (7-56) 12/19/16 08:05 Alkaline Phosphatase 60 U/L (38-133) 12/19/16 08:05 Lactate Dehydrogenase 419 U/L (333-699) 12/16/16 11:45 Total Creatine Kinase 53 U/L (35-230) 12/16/16 11:45 Troponin I < 0.01 ng/mL 12/16/16 11:45 Total Protein 6.7 g/dL (5.8-8.3) 12/19/16 08:05 Albumin 3.5 g/dL (3.0-4.8) 12/19/16 08:05 Globulin 3.2 gm/dL 12/19/16 08:05 Albumin/Globulin Ratio 1.1 (1.1-1.8) 12/19/16 08:05 Amylase 119 U/L (35-125) 12/16/16 11:45 Lipase 77 U/L (23-300) 12/16/16 11:45 Vitamin B12 806 pg/mL (239-931) 12/18/16 06:30 25-OH Vitamin D Total 34.8 NG/ML (30.0-100.0) 12/18/16 06:30 Folate > 20.0 ng/mL 12/18/16 06:30 Urine Color Yellow (YELLOW) 12/16/16 14:00 Urine Appearance Clear (CLEAR) 12/16/16 14:00 Urine pH 6.5 (4.7-8.0) 12/16/16 14:00 Ur Specific [place] 1.015 (1.005-1.035) 12/16/16 14:00 Urine Protein Negative mg/dL (<30 mg/dL) 12/16/16 14:00 Urine Glucose (UA) Negative mg/dL (NEGATIVE) 12/16/16 14:00 Urine Ketones Negative mg/dL (NEGATIVE) 12/16/16 14:00 Urine Blood Negative (NEGATIVE) 12/16/16 14:00 Urine Nitrate Negative (NEGATIVE) 12/16/16 14:00 Urine Bilirubin Negative (NEGATIVE) 12/16/16 14:00 Urine Urobilinogen 0.2 E.U./dL (<1 E.U./dL) 12/16/16 14:00 Ur Leukocyte Esterase Negative Hien/uL (NEGATIVE) 12/16/16 14:00 Blood Type O POSITIVE 12/16/16 11:45 Blood Type Confirm O POSITIVE 12/16/16 15:15 Antibody Screen Negative 12/16/16 11:45 BBK History Checked No verified bt 12/16/16 11:45 - Hospital Course Hospital Course: This 81F was admitted on 12/16/16 due to episodic hematemasis at home for the past 4 weeks which was described as having a coffee ground appearance. On admission PT had a Hgb of 10.7 she was started on IVF and in addition to her home PPI we added an H2 anneliese. On HD2 her Hgb dropped to 9.4 she went for an EDG where she was found to have distal esophageal ulcerations which is indicative of stasis in the lower esophagus. She was then started on sucralfate. Hgb dropped to 8.9 she was given iron. On HD day 4 her Hgb 9.9. no more episodes of hematemesis. She is stable and safe for discharge with a PPI, H2 anneliese, carafate and iron supplementation. Discharge Exam - Head Exam Head Exam: ATRAUMATIC, NORMOCEPHALIC - Eye Exam Eye Exam: EOMI, Normal appearance - Respiratory Exam Respiratory Exam: UNREMARKABLE - Cardiovascular Exam Cardiovascular Exam: +S1, +S2 - GI/Abdominal Exam GI & Abdominal Exam: Unremarkable - Neurological Exam Neurological exam: Alert - Psychiatric Exam Psychiatric exam: Normal Affect, Normal Mood - Skin Skin Exam: Normal Color Discharge Plan - Follow Up Plan Condition: FAIR Disposition: HOME/ ROUTINE Patient education suggested?: No Instructions: Gastrointestinal Bleeding (DC) Referrals: Hitesh Johnson MD [Primary Care Provider] -
--- NOTE | 2016-12-20 09:09 | PN ---
DATE: 12/19/2016 ADDENDUM This patient was seen and evaluated earlier. The patient's aide was feeding the patient the pureed d iet. PHYSICAL EXAMINATION. VITAL SIGNS: Temperature is afebrile, blood pressure is 116/67, pulse 82. HEENT: Atraumatic, anicteric. NECK: Supple. HEART: S1, S2 heard. LUNGS: Bilateral air entry present. ABDOMEN: Soft. There is no tenderness. LABORATORY DATA: Hemoglobin 9.9, hematocrit 29.8, WBCs 10.3, platelets 460. IMPRESSION: This 81-year-old patient was admitted with upper gastrointestinal bleeding. Upper gastr ointestinal endoscopy showed a 10 cm long LA grade C esophagitis. The patient is presently on a pure ed diet and on Carafate and Protonix. PLAN: To have a repeat endoscopy done in about 2 months' time. We will continue the Protonix. Cont inue the PPI. Also discussed with Dr. Johnson regarding this. Thank you very much for allowing us to participate in the care of the patient. Erika Grey MD cc: [phone] TT: 12/20/2016 09:08:04 Confirmation # [id number] Dictation # [id number]
== END 2016-12-19 14:52 | disposition home or self-care (01) | DRG 381 ==
LOC: ED 10:54 → ERH 12:36 → 2RNO 17:17 → OBSVTOIN 18:30
PROVIDERS: ADMIT Surgery; ATTEND Surgery
PROC: 3E0F7GC Introduction of Other Therapeutic Substance into Respiratory Tract, Via Natural or Artificial Opening (ICD-10-PCS; 2016-12-17)
PROC: 0DJ08ZZ Inspection of Upper Intestinal Tract, Via Natural or Artificial Opening Endoscopic (ICD-10-PCS; principal; 2016-12-17 13:30)
DX: K22.11 Ulcer of esophagus with bleeding (principal); D62 Acute posthemorrhagic anemia; D50.0 Iron deficiency anemia secondary to blood loss (chronic); M06.9 Rheumatoid arthritis, unspecified; I10 Essential (primary) hypertension; F51.02 Adjustment insomnia; G80.9 Cerebral palsy, unspecified; K44.9 Diaphragmatic hernia without obstruction or gangrene; Z87.11 Personal history of peptic ulcer disease; Z90.710 Acquired absence of both cervix and uterus; Z86.73 Personal history of transient ischemic attack (TIA), and cerebral infarction without residual deficits; Z82.3 Family history of stroke; Z80.0 Family history of malignant neoplasm of digestive organs

== ENCOUNTER 2016-12-26 13:25 | Inpatient (IN) | payer MEDICARE, BC ==
[2016-12-26 13:33] VITALS: BMI 23.8
[2016-12-26] MEDS ORDERED: Sodium Chloride 0.9% 1,000 ML IV SCH (14:00)
--- NOTE | 2016-12-26 14:34 | ED PDOC ---
Arrival/HPI - General Chief Complaint: GI Problem Time Seen by Provider: 12/26/16 13:30 Historian: Patient, Caregiver - History of Present Illness Narrative History of Present Illness (Text): 12/26/16 13:35 A 81 year old female presents to the emergency department, accompanied by caregiver, for evaluation of persistent vomiting. Caregiver states patient was discharged from the hospital on 12/19/16 after being evaluated for vomiting. The following day the patient was okay but then over the weekend she had some dark vomiting episodes. Caregiver changes her diet the follow day and patient was okay but then the following three days she has been vomiting up food. Caregiver notes the patient bowel movement this morning was darker than usual. Patient reports to feel more tired than usual but she denies any fever, abdominal pain, change in urination or other complaints at this time. PMD: Dr. Johnson Time/Duration: Other (6 days) Symptom Onset: Sudden Symptom Course: Intermittent Quality: Other Activities at Onset: Rest Context: Home Past Medical History - Provider Review Nursing Documentation Reviewed: Yes - Infectious Disease Hx of Infectious Diseases: None - Tetanus Immunization Tetanus Immunization: Unknown - Reproductive Menopause: Yes - Cardiac Hx Cardiac Disorders: Yes Hx Congestive Heart Failure: Yes Hx Hypertension: Yes Hx Peripheral Vascular Disease: Yes (DVT) - Pulmonary Hx Respiratory Disorders: No - Neurological Hx Neurological Disorder: Yes HX Cerebrovascular Accident: Yes Other/Comment: CEREBRAL PALSY - HEENT Hx HEENT Disorder: No - Renal Hx Renal Disorder: No - Endocrine/Metabolic Hx Endocrine Disorders: No - Hematological/Oncological Hx Blood Disorders: No - Integumentary Hx Dermatological Disorder: Yes (IASD) - Musculoskeletal/Rheumatological Hx Musculoskeletal Disorders: Yes Hx Falls: Yes Other/Comment: DEVELOPMENTAL DYSPLASIA OF HIP - Gastrointestinal Hx Gastrointestinal Disorders: Yes - Genitourinary/Gynecological Hx Genitourinary Disorders: Yes Hx Incontinence: Yes - Psychiatric Hx Depression: No Hx Emotional Abuse: No Hx Physical Abuse: No Hx Substance Use: No - Past Surgical History Past Surgical History: Unable to Obtain - Surgical History Hx Hysterectomy: Yes Other/Comment: CORRECTION OF DEVELOPMENTAL DYSPLASIA OF HIP. - Anesthesia Hx Anesthesia: No - Suicidal Assessment Feels Threatened In Home Enviroment: No Family/Social History - Physician Review Nursing Documentation Reviewed: Yes Family/Social History: Unknown Family HX Smoking Status: Never Smoked Hx Alcohol Use: No Hx Substance Use: No Hx Substance Use Treatment: No Allergies/Home Meds Allergies/Adverse Reactions: Allergies Sulfa (Sulfonamide Antibiotics) Allergy (Verified 12/16/16 15:39) RASH Home Medications: Home Meds Medication Instructions Recorded Confirmed Atenolol [Tenormin] 25 mg PO DAILY 12/16/16 12/26/16 Atorvastatin [Lipitor] 10 mg PO DIN 12/16/16 12/26/16 Calcium Carbonate [Oscal] 0 mg PO DAILY 12/16/16 12/26/16 Clorazepate Dipotassium [Tranxene 3.75 mg PO PRN 12/16/16 12/26/16 T-Tab] Hydroxychloroquine Sulfate 200 mg PO DAILY 12/16/16 12/26/16 Iron/FA#1/Vit C/B12/Zn/Dss/Suc 1 tab PO DAILY 12/16/16 12/26/16 [Feriva 21-7 Tablet] Tramadol HCl/Acetaminophen 1 tab PO DAILY 12/16/16 12/26/16 [Tramadol-Acetaminophn 37.5-325] Valsartan/Hydrochlorothiazide 1 each PO DAILY 12/16/16 12/26/16 [Diovan Hct 160-12.5 mg Tab] Zolpidem [Ambien] 5 mg PO PRN PRN 12/16/16 12/26/16 amLODIPine [Norvasc] 10 mg PO DAILY 12/16/16 12/26/16 Review of Systems - Review of Systems Constitutional: Fatigue. absent: Fevers Eyes: absent: Vision Changes ENT: absent: Rhinorrhea Respiratory: absent: SOB Cardiovascular: absent: Chest Pain Gastrointestinal: Stool Changes (darker ), Vomiting. absent: Abdominal Pain Genitourinary Female: absent: Urine Output Changes Musculoskeletal: absent: Back Pain, Neck Pain Skin: absent: Rash Neurological: absent: Headache, Focal Weakness Endocrine: absent: Polyuria Psychiatric: absent: Depression Physical Exam - Physical Exam Narrative Physical Exam (Text): Head: Atraumatic. Normocephalic. Eyes: PERRL. EOMI. Conjunctivae are not pale. ENT: Mucous membranes are dry. Oropharynx is clear and symmetric. Neck: Supple. Full ROM. No JVD. No lymphadenopathy. Cardiovascular: Regular rate. Regular rhythm. Pulmonary/Chest: No evidence of respiratory distress. Clear to auscultation bilaterally. No wheezing, rales or rhonchi. Abdominal: Soft and non-distended. Abdominal scars noted. Genitourinary: diaper present Rectal: no gross blood Back: No CVA tenderness. Extremities: No edema. No cyanosis. No clubbing. No pain in the extremities reported. Distal pulses intact. Neurological: Has contractures that are her baseline, has baseline neuro exam as described and currently noted from history of cerbral palsy as well as history of prior CVA reportedly, does not ambulate, will move all 4 extremities , speech is slow but at baseline, no meningeal signs Psychiatric: Good eye contact. Normal interaction, affect, and behavior. Vital Signs Reviewed: Yes Vital Signs Temp Pulse Resp BP Pulse Ox 12/26/16 15:08 73 18 139/86 97 12/26/16 15:07 86 21 124/60 94 L 12/26/16 14:32 99.1 F Temperature: Afebrile Appearance: Positive for: Well-Appearing, Non-Toxic, Comfortable Finger Stick Blood Glucose: 109 Medical Decision Making ED Course and Treatment: 12/26/16 13:35 Impression: A 81 year old female with persistent vomiting. Patient was recently admit to the hospital and had a GI workup. Differential Diagnosis include but are not limited to: GI bleeding vs. bowel obstruction Plan: -- EKG -- Labs -- Pepcid and IV Fluids -- Reassess and disposition Prior Visits: Notes and results from previous visits were reviewed. The patient last seen in the emergency department on 12/16/16 for evaluation of dark vomiting. Patient had a drop in H&H and was admitted to the hospital for further GI evaluation. She had a endoscopy on 12/17/16 which showed multiple esophageal ulceration extending from 25 cm levels of the esophagus to the 35cm level with endogastrits. Patient was discharged home on 12/19/16. Progress Notes: Patient with prior hx of cerebral palsy and cva. Denies taking blood thinners currently. She is alert, communicates well. She has had persistent vomiting daily over past several days, reportedly "dark" several days ago although currently vomiting "just the food". Not hypotensive or tachycardic. Patient with no abdominal pain. Noted to be anemic Hgb 9.1 when compared to most recent labs this is diminished. Patient has not had vomiting thus far in ED. Prior endoscopy reviewed performed during recent admission, patient recently diagnosed with esophagitis. She denies chest pain or sob, she has has been placed on PPI and iv fluds. K is 3.0 although no arrhythmias noted, will replace potassium. Reviewed case with PMD Dr. Adam Johnson, will admit patient for persistent vomiting, possible GI bleed, anemia. 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 12/26/16 15:38 - Lab Interpretations Lab Results: 12/26/16 14:20 12/26/16 14:20 Lab Results 12/26/16 14:27: POC Glucose (mg/dL) 109 12/26/16 14:20: Sodium 138, Potassium 3.0 L, Chloride 98, Carbon Dioxide 30, Anion Gap 13, BUN 25 H, Creatinine 0.6, Est GFR ( Amer) > 60, Est GFR ( Non-Af Amer) > 60, Random Glucose 95, Calcium 9.5, Total Bilirubin 0.6, AST 23, ALT 27, Alkaline Phosphatase 61, Lactate Dehydrogenase 430, Total Creatine Kinase 38, Troponin I 0.02 D, Total Protein 6.8, Albumin 3.7, Globulin 3.1, Albumin/Globulin Ratio 1.2 12/26/16 14:20: PT 11.3, INR 1.05, APTT 26.3 12/26/16 14:20: WBC 12.7 H D, RBC 2.91 L, Hgb 9.1 L, Hct 26.9 L, MCV 92.4, MCH 31.3, MCHC 33.8, RDW 13.7, Plt Count 548 H, MPV 9.8, Gran % 76.3 H, Lymph % ( Auto) 14.7 L, [place] % (Auto) 8.0 H, Eos % (Auto) 0.7 L, Baso % (Auto) 0.3, Gran # 9.68 H, Lymph # 1.9, [place] # 1.0 H, Eos # 0.1, Baso # 0.04 I have reviewed the lab results: Yes - EKG Interpretation EKG Interpretation (Text): 12/26/16 15:36 EKG at 13:53 normal sinus rhythm with premature atrial complexes, prolonged qt, nonspecific st abnormality Interpreted by ED Physician: Yes Type: 12 lead EKG - Medication Orders Current Medication Orders: Sodium Chloride (Sodium Chloride 0.9%) 1,000 mls @ 100 mls/hr IV .Q10H ESTER Last Admin: 12/26/16 14:39 Dose: 100 mls/hr Discontinued Medications Famotidine (Pepcid) 20 mg IVP STAT STA Stop: 12/26/16 13:47 Last Admin: 12/26/16 14:37 Dose: 20 mg Potassium Chloride (K-Dur 20 Meq Er Tab) 40 meq PO STAT STA Stop: 12/26/16 15:06 - Scribe Statement The provider has reviewed the documentation as recorded by the Leyla Warren Provider Scribe Attestation: All medical record entries made by the Leyla were at my direction and personally dictated by me. I have reviewed the chart and agree that the record accurately reflects my personal performance of the history, physical exam, medical decision making, and the department course for this patient. I have also personally directed, reviewed, and agree with the discharge instructions and disposition. Disposition/Present on Arrival - Present on Arrival Any Indicators Present on Arrival: No History of DVT/PE: No History of Uncontrolled Diabetes: No Urinary Catheter: No History of Decub. Ulcer: No History Surgical Site Infection Following: None - Disposition Have Diagnosis and Disposition been Completed?: Yes Diagnosis: GI bleed, Anemia, Hypokalemia Disposition: HOSPITALIZED Disposition Time: 15:05 Patient Plan: Admission Patient Problems: Current Active Problems Problem Status Onset Anemia Acute Hypokalemia Acute GI bleed Chronic Condition: FAIR
[2016-12-26 14:45] LABS: ADD MANUAL DIFF? NO
[2016-12-26 15:01] LABS: BASO # 0.04 K/mm3 (0.0-2.0); BASO % 0.3 % (0.0-3.0); EOS # 0.1 (0.0-0.7); EOS % 0.7 % (1.5-5.0); GRAN # 9.68 (1.4-6.5); GRAN % 76.3 % (50.0-68.0); HEMATOCRIT 26.9 % (36.0-48.0); INR 1.05 (0.93-1.08); LYMPH # 1.9 (1.2-3.4); LYMPH % 14.7 % (22.0-35.0); MEAN CELL VOLUME 92.4 fL (80.0-105.0); MEAN CORPUSCULAR HEMOGLOBIN 31.3 pg (25.0-35.0); MEAN CORPUSCULAR HGB CONC 33.8 g/dl (31.0-37.0); MEAN PLATELET VOLUME 9.8 fl (7.0-11.0); PARTIAL THROMBOPLASTIN TIME 26.3 Seconds (23.7-30.8); PLATELET COUNT 548 10^3/uL (120.0-450.0); RED CELL DISTRIBUTION WIDTH 13.7 % (11.5-14.5); WHITE BLOOD COUNT 12.7 10^3/ul (4.5-11.0)
[2016-12-26 15:02] LABS: ALB/GLOB RATIO 1.2 (1.1-1.8); ALKALINE PHOSPHATASE 61 U/L (38-133); ALT/SGPT 27 U/L (7-56); AST/SGOT 23 U/L (15-39); BILIRUBIN,TOTAL 0.6 mg/dL (0.2-1.3); BLOOD UREA NITROGEN 25 mg/dL (7-21); CALCIUM 9.5 mg/dL (8.4-10.5); CARBON DIOXIDE 30 mmol/L (21-33); CHLORIDE 98 mmol/L (98-107); GFR AFRICAN-AMERICAN > 60; GLUCOSE,RANDOM 95 mg/dL (70-110); SODIUM 138 mmol/L (132-148); TOTAL PROTEIN 6.8 g/dL (5.8-8.3)
[2016-12-26] MEDS ORDERED: Potassium Chloride 20 mEq ER Tab PO STA (15:05)
[2016-12-26 15:13] LABS: TROPONIN I 0.02 ng/mL
--- NOTE | 2016-12-26 15:19 | CARD ---
APPROVED REPORT EKG Measurement Heart [id number] <Conclusion> Sinus rhythm with premature atrial complexes Left axis deviation Nonspecific ST abnormality Prolonged QT Abnormal ECG
--- NOTE | 2016-12-26 20:32 | CP.PCM.CON ---
History of Present Illness - History of Present Illness History of Present Illness: This is a general surgery consult note for Dr. Johnson. CC: intermittent epigastric pain and hematemesis x 4 weeks HPI: 81 yo F with PMHx of GI bleeding, gastric ulcer, and HTN presents to ED C/ O intermittent epigastric pain and hematemesis x 4 weeks. Episodes occur 1 to 2 times per week and follow food intake 3 to 4 hours prior to vomiting. Vomitus consists of chyme mixed with blood or coffee-ground emesis. Pt denies fevers, chills, recent weight loss, nausea, diarrhea, constipation, dizziness, and palpitations. PMHx: GI bleeding, gastric ulcer, HTN, CVA, cerebral palsy, rheumatoid palsy, developmental dysplasia of the hip PSHx: hysterectomy, surgery to correct DDH All: sulfa, sulfonamide (rash) FHx: mother had CVA. Father had colon ca. Review of Systems - Review of Systems All systems: reviewed and no additional remarkable complaints except Past Patient History - Infectious Disease Hx of Infectious Diseases: None - Tetanus Immunizations Tetanus Immunization: Unknown - Past Social History Smoking Status: Never Smoked - CARDIAC Hx Cardiac Disorders: Yes Hx Congestive Heart Failure: Yes Hx Hypertension: Yes Hx Peripheral Vascular Disease: Yes (DVT) - PULMONARY Hx Respiratory Disorders: No - NEUROLOGICAL Hx Neurological Disorder: Yes HX Cerebrovascular Accident: Yes Other/Comment: CEREBRAL PALSY - HEENT Hx HEENT Problems: No - RENAL Hx Chronic Kidney Disease: No - ENDOCRINE/METABOLIC Hx Endocrine Disorders: No - HEMATOLOGICAL/ONCOLOGICAL Hx Blood Disorders: No - INTEGUMENTARY Hx Dermatological Problems: Yes (IASD) - MUSCULOSKELETAL/RHEUMATOLOGICAL Hx Musculoskeletal Disorders: Yes Hx Falls: Yes Other/Comment: DEVELOPMENTAL DYSPLASIA OF HIP - GASTROINTESTINAL Hx Gastrointestinal Disorders: Yes - GENITOURINARY/GYNECOLOGICAL Hx Genitourinary Disorders: Yes Hx Incontinence: Yes - PSYCHIATRIC Hx Depression: No Hx Emotional Abuse: No Hx Physical Abuse: No Hx Substance Use: No - SURGICAL HISTORY Hx Hysterectomy: Yes Other/Comment: CORRECTION OF DEVELOPMENTAL DYSPLASIA OF HIP. - ANESTHESIA Hx Anesthesia: No Meds Allergies/Adverse Reactions: Allergies Allergy/AdvReac Type Severity Reaction Status Date / Time Sulfa (Sulfonamide Allergy RASH Verified 12/16/16 15:39 Antibiotics) - Medications Medications: Current Medications Potassium Chloride/Dextrose/Sod Cl (Potassium Chl 30 Meq In D5-1/2ns) 1,000 mls @ 83 mls/hr IV .Q12H3M [facility] Pantoprazole Sodium (Protonix Inj) 40 mg IVP DAILY [facility] Zolpidem Tartrate (Ambien) 5 mg PO STAT PRN; Protocol PRN Reason: ISOMNIA Physical Exam - Constitutional Appears: Non-toxic - Head Exam Head Exam: ATRAUMATIC, NORMOCEPHALIC - Eye Exam Eye Exam: EOMI, Normal appearance - ENT Exam ENT Exam: Mucous Membranes Moist, Normal Exam - Respiratory Exam Respiratory Exam: NORMAL BREATHING PATTERN - Cardiovascular Exam Cardiovascular Exam: +S1, +S2 - GI/Abdominal Exam GI & Abdominal Exam: Soft. absent: Distended, Firm, Guarding, Hernia - Neurological Exam Neurological exam: Alert, Oriented x3 - Psychiatric Exam Psychiatric exam: Normal Affect, Normal Mood - Skin Skin Exam: Normal Color, Warm Results - Vital Signs Recent Vital Signs: Last Vital Signs Temp 99.1 F 12/26/16 14:32 Pulse 92 H 12/26/16 17:35 Resp 16 12/26/16 17:35 BP 129/86 12/26/16 17:35 Pulse Ox 94 L 12/26/16 17:35 - Labs Result Diagrams: 12/26/16 14:20 12/26/16 14:20 Assessment & Plan - Assessment and Plan (Free Text) Assessment: - This is an 81 yo F with PMHx of GI bleeding and gastric ulcer C/O intermittent epigastric pain and hematemesis most likely secondary to gastric ulcer and H. pylori infection. Plan: - KCl. - clear liquid diet - Rx omeprazole, loratadine. - Follow hemoglobin and hematocrit in AM. - Consulte GI. Appreciate recommendations.
[2016-12-26] MEDS ORDERED: Pneumococcal 23-Valent Vaccine IM ONE (20:46)
--- NOTE | 2016-12-26 21:18 | CP.PCM.HP ---
History of Present Illness - History of Present Illness History of Present Illness: This is a general surgery consult note for Dr. Johnson. CC: intermittent epigastric pain and hematemesis x 4 weeks HPI: 81 yo F with PMHx of GI bleeding, gastric ulcer, and HTN presents to ED C/ O intermittent epigastric pain and hematemesis x 4 weeks. She was recentgly discharged by our services for which she presented with the same complaints. She reports episodes occur 1 to 2 times per week and follow food intake 3 to 4 hours prior to vomiting. Vomitus consists of chyme mixed with blood or coffee- ground emesis. Pt denies fevers, chills, recent weight loss, nausea, diarrhea, constipation, dizziness, and palpitations. PMHx: GI bleeding, gastric ulcer, HTN, CVA, cerebral palsy, rheumatoid palsy, developmental dysplasia of the hip PSHx: hysterectomy, surgery to correct DDH All: sulfa, sulfonamide (rash) FHx: mother had CVA. Father had colon ca. Review of Systems - Review of Systems All systems: reviewed and no additional remarkable complaints except Past Patient History - Infectious Disease Hx of Infectious Diseases: None - Tetanus Immunizations Tetanus Immunization: Unknown - Past Social History Smoking Status: Never Smoked - CARDIAC Hx Cardiac Disorders: Yes Hx Congestive Heart Failure: Yes Hx Hypertension: Yes Hx Peripheral Vascular Disease: Yes (DVT) - PULMONARY Hx Respiratory Disorders: No - NEUROLOGICAL Hx Neurological Disorder: Yes HX Cerebrovascular Accident: Yes Other/Comment: CEREBRAL PALSY - HEENT Hx HEENT Problems: No - RENAL Hx Chronic Kidney Disease: No - ENDOCRINE/METABOLIC Hx Endocrine Disorders: No - HEMATOLOGICAL/ONCOLOGICAL Hx Blood Disorders: No - INTEGUMENTARY Hx Dermatological Problems: Yes (IASD) - MUSCULOSKELETAL/RHEUMATOLOGICAL Hx Musculoskeletal Disorders: Yes Hx Falls: Yes Other/Comment: DEVELOPMENTAL DYSPLASIA OF HIP - GASTROINTESTINAL Hx Gastrointestinal Disorders: Yes - GENITOURINARY/GYNECOLOGICAL Hx Genitourinary Disorders: Yes Hx Incontinence: Yes - PSYCHIATRIC Hx Depression: No Hx Emotional Abuse: No Hx Physical Abuse: No Hx Substance Use: No - SURGICAL HISTORY Hx Hysterectomy: Yes Other/Comment: CORRECTION OF DEVELOPMENTAL DYSPLASIA OF HIP. - ANESTHESIA Hx Anesthesia: No Meds Allergies/Adverse Reactions: Allergies Allergy/AdvReac Type Severity Reaction Status Date / Time Sulfa (Sulfonamide Allergy RASH Verified 12/16/16 15:39 Antibiotics) - Medications Medications: Current Medications Potassium Chloride/Dextrose/Sod Cl (Potassium Chl 30 Meq In D5-1/2ns) 1,000 mls @ 83 mls/hr IV .Q12H3M [facility] Pantoprazole Sodium (Protonix Inj) 40 mg IVP DAILY [facility] Zolpidem Tartrate (Ambien) 5 mg PO STAT PRN; Protocol PRN Reason: ISOMNIA Physical Exam - Constitutional Appears: Non-toxic - Head Exam Head Exam: ATRAUMATIC, NORMOCEPHALIC - Eye Exam Eye Exam: EOMI, Normal appearance - ENT Exam ENT Exam: Mucous Membranes Moist, Normal Exam - Respiratory Exam Respiratory Exam: NORMAL BREATHING PATTERN - Cardiovascular Exam Cardiovascular Exam: +S1, +S2 - GI/Abdominal Exam GI & Abdominal Exam: Soft. absent: Distended, Firm, Guarding, Hernia - Neurological Exam Neurological exam: Alert, Oriented x3 - Psychiatric Exam Psychiatric exam: Normal Affect, Normal Mood - Skin Skin Exam: Normal Color, Warm Results - Vital Signs Recent Vital Signs: Last Vital Signs Temp 99.1 F 12/26/16 14:32 Pulse 92 H 12/26/16 17:35 Resp 16 12/26/16 17:35 BP 129/86 12/26/16 17:35 Pulse Ox 94 L 12/26/16 17:35 - Labs Result Diagrams: 12/26/16 14:20 12/26/16 14:20 Assessment & Plan - Assessment and Plan (Free Text) Assessment: - This is an 81 yo F with PMHx of GI bleeding and gastric ulcer C/O intermittent epigastric pain and hematemesis most likely secondary to gastric ulcer and H. pylori infection. Plan: - NPO - Rx omeprazole, loratadine. - Follow hemoglobin and hematocrit in AM. - Consulte GI. Appreciate recommendations. D/W Dr. Alex Salmon PGY-2 Present on Admission - Present on Admission Any Indicators Present on Admission: No Past Patient History - Infectious Disease Hx of Infectious Diseases: None - Tetanus Immunizations Tetanus Immunization: Unknown - Past Social History Smoking Status: Never Smoked - CARDIAC Hx Cardiac Disorders: Yes Hx Congestive Heart Failure: Yes Hx Hypertension: Yes Hx Peripheral Vascular Disease: Yes (DVT) - PULMONARY Hx Respiratory Disorders: No - NEUROLOGICAL Hx Neurological Disorder: Yes HX Cerebrovascular Accident: Yes Other/Comment: CEREBRAL PALSY - HEENT Hx HEENT Problems: No - RENAL Hx Chronic Kidney Disease: No - ENDOCRINE/METABOLIC Hx Endocrine Disorders: No - HEMATOLOGICAL/ONCOLOGICAL Hx Blood Disorders: No - INTEGUMENTARY Hx Dermatological Problems: Yes (IASD) - MUSCULOSKELETAL/RHEUMATOLOGICAL Hx Falls: Yes (past) - GASTROINTESTINAL Hx Gastrointestinal Disorders: Yes - GENITOURINARY/GYNECOLOGICAL Hx Genitourinary Disorders: Yes Hx Incontinence: Yes - PSYCHIATRIC Hx Substance Use: No - SURGICAL HISTORY Hx Hysterectomy: Yes Other/Comment: CORRECTION OF DEVELOPMENTAL DYSPLASIA OF HIP. - ANESTHESIA Hx Anesthesia: No Meds Allergies/Adverse Reactions: Allergies Allergy/AdvReac Type Severity Reaction Status Date / Time Sulfa (Sulfonamide Allergy RASH Verified 12/16/16 15:39 Antibiotics) Results - Vital Signs Recent Vital Signs: Last Vital Signs Temp 99.1 F 12/26/16 20:34 Pulse 73 12/26/16 20:34 Resp 18 12/26/16 20:34 BP 139/86 12/26/16 20:34 Pulse Ox 94 L 12/26/16 17:35 - Labs Result Diagrams: 12/26/16 14:20 12/26/16 14:20
[2016-12-27 07:26] LABS: ADD MANUAL DIFF? NO
[2016-12-27 07:48] LABS: BASO # 0.04 K/mm3 (0.0-2.0); BASO % 0.3 % (0.0-3.0); EOS # 0.3 (0.0-0.7); EOS % 2.7 % (1.5-5.0); GRAN # 8.87 (1.4-6.5); GRAN % 72.6 % (50.0-68.0); MEAN CELL VOLUME 93.7 fL (80.0-105.0); MEAN CORPUSCULAR HGB CONC 33.1 g/dl (31.0-37.0); MEAN PLATELET VOLUME 9.6 fl (7.0-11.0); MONO % 8.4 % (1.0-6.0); PLATELET COUNT 472 10^3/uL (120.0-450.0); RED CELL DISTRIBUTION WIDTH 14.3 % (11.5-14.5); WHITE BLOOD COUNT 12.2 10^3/ul (4.5-11.0)
[2016-12-27 07:56] LABS: HEMATOCRIT 23.9 % (36.0-48.0)
[2016-12-27 07:57] LABS: ALB/GLOB RATIO 1.1 (1.1-1.8); ALKALINE PHOSPHATASE 53 U/L (38-133); ALT/SGPT 29 U/L (7-56); AST/SGOT 19 U/L (15-39); BILIRUBIN,TOTAL 0.3 mg/dL (0.2-1.3); BLOOD UREA NITROGEN 16 mg/dL (7-21); CALCIUM 8.3 mg/dL (8.4-10.5); CARBON DIOXIDE 28 mmol/L (21-33); CHLORIDE 106 mmol/L (95-110); GFR AFRICAN-AMERICAN > 60; GLUCOSE,RANDOM 90 mg/dL (70-110); POTASSIUM 3.4 mmol/L (3.6-5.0); SODIUM 141 mmol/L (132-148); TOTAL PROTEIN 5.6 g/dL (5.8-8.3)
[2016-12-27 08:04] LABS: IRON 13 ug/dL (45-180)
--- NOTE | 2016-12-27 09:15 | CP.PCM.PCO ---
Physician Communication Note - Physician Communication Note Physician Communication Note: HgB 7.9/K 3.4-Rx 2 UnitsPRBC/?EGD per GI
[2016-12-27] MEDS: Potassium Chl 30 mEq in D5-1/2 1,000 ML IV SCH (11:03)
[2016-12-27 12:28] LABS: PH,URINE 8.5 (4.7-8.0); URINE BILIRUBIN NEGATIVE (NEGATIVE); URINE BLOOD TRACE-INTACT (NEGATIVE); URINE GLUCOSE (UA) NEGATIVE (NEGATIVE); URINE KETONE NEGATIVE (NEGATIVE); URINE LEUKOCYTE ESTERASE LARGE Leu/uL (NEGATIVE); URINE PROTEIN NEGATIVE mg/dL (<30 mg/dL); URINE UROBILINOGEN 0.2 E.U./dL (<1 E.U./dL)
[2016-12-27 12:42] LABS: URINE APPEARANCE CLEAR (CLEAR); URINE COLOR YELLOW (YELLOW)
[2016-12-27 12:55] LABS: URINE BACTERIA MANY (NEG); URINE WBC TNTC /hpf (0-6)
--- NOTE | 2016-12-27 18:36 | CON ---
DATE: 12/27/2016 Seen and examined at the bedside earlier this afternoon. REQUEST FOR CONSULT: Anemia, vomiting and esophagitis. HISTORY OF PRESENT ILLNESS: This is an 81-year-old female with a past medical history of gastric ulc er, cerebral palsy, rheumatoid palsy, and CVA who was recently discharged on 12/19 for an episode of h emetemesis and coffee-ground vomitus. She was seen by our GI service and had an upper endoscopy. Chitra cassidy was found to have distal esophageal ulcerations and was placed on Carafate and discharged on PPI an d H2 anneliese, Carafate and iron supplement. She returns with complaints of intermittent epigastric p ain. Of note, she complains of episodes of vomiting at least 3-4 hours after oral intake. The vomit us is mixed with blood or coffee ground emesis. The patient states that even eating jello causes her to vomit as well as ice cream. She was trying to take in spaghetti and sandwiches, but that caused her to vomit. She is moving her bowels with no difficulty. Denies any melena or bright red blood pe r rectum. No complaints of any abdominal pain. PAST MEDICAL HISTORY: GI bleed and has a history of peptic ulcer disease with a history of NSAID in the past, CVA, cerebral palsy, hypertension, rheumatoid palsy and developmental dysplasia of the hip. PAST SURGICAL HISTORY: She had a hysterectomy and correction of DDH. FAMILY HISTORY: Father with colon carcinoma, mother CVA. ALLERGIES: SULFA AND SULFONAMIDE. MEDICATIONS: Reviewed as per MAR. SOCIAL HISTORY: No history of smoking, ETOH or substance abuse. REVIEW OF SYSTEMS: Systems were reviewed with positive findings, see HPI. LABORATORY DATA: Are WBC of 12.2, H is H is 7.9 and 23.9, platelets of 472. PT on admission is 11.3 , INR is 1.05, PTT is 26.3. Chem: Sodium is 141, K is 3.4, BUN 16, creatinine 0.6. LFTs are within normal limits. Her iron is 13, it is low; TIBC is 188, percent saturation is 7. No imaging studies were done on this admission. She did have a chest x-ray on prior admission on 12/16/2016. No acute active disease. PHYSICAL EXAMINATION: VITAL SIGNS: Temperature is 98.7, blood pressure is 122/65, pulse 80, respirations 20. HEENT: Sclerae is anicteric. NECK: Supple. CARDIAC: S1, S2. LUNGS: With decreased breath sounds but good air entry, no rales or wheeze. ABDOMEN: With bowel sounds, soft, nontender. No rebound or guarding. NEUROLOGIC: Awake, alert, and oriented. ASSESSMENT: This is an 81-year-old female with a history of cerebral palsy, rheumatoid palsy, gastro intestinal bleed and gastric ulcer. She did have a recent endoscopy done on 12/18 and found to have m ultiple esophageal ulcers, up to 25 cm, and hiatal hernia. Comes with the same complaints of vomitin g postprandial and noted to have blood or coffee ground emesis reported. The patient denies any abdo ilan pain. She also has a history of hypertension and cerebrovascular accident. PLAN: Will start a clear liquid diet. She is going to get a blood transfusion of 2 units of packed RBCs; patient with iron deficiency anemia. We will continue Protonix IV daily and she is also starte d on IV fluids on admission, which will likely be on hold during blood transfusions. Continue to mon itor H and H and the patient would need a repeat endoscopy in 2 months' time to follow up healing of ulcers. Advance diet as tolerated. Would recommend more of a puree diet. Thank you for this consult and for allowing us to participate in your patient's care. Will make furt her recommendations based on the patient's clinical course. The patient was seen and the case discus sed with Dr. Grey. Delaney MENA cc: [id number] TT: 12/27/2016 18:35:16 Confirmation # [id number] Dictation # [id number] roddy
--- NOTE | 2016-12-28 00:05 | CP.PCM.PN ---
Subjective - Date & Time of Evaluation Date of Evaluation: 12/28/16 Time of Evaluation: 05:50 - Subjective Subjective: General Surgery progress note for Dr. Johnson Pt s/e at bedside this AM. NAEO. Patient received 2 units PRBC yesterday with H/ H post transfusion: fo 11.3/32.8. Patient denies any weakness, light headedness , nausea, vomiting, abdominal pain, diarrhea, tolerated her CLD well. Objective - Vital Signs/Intake and Output Vital Signs (last 24 hours): Temp Pulse Resp BP Pulse Ox 99.0 F 83 20 124/68 95 12/27/16 19:00 12/27/16 19:00 12/27/16 19:00 12/27/16 19:00 12/27/16 08:00 Intake and Output: 12/27/16 12/28/16 18:59 06:59 Intake Total 775 1144 Output Total 1100 Balance 775 44 - Medications Medications: Current Medications Potassium Chloride/Dextrose/Sod Cl (Potassium Chl 30 Meq In D5-1/2ns) 1,000 mls @ 83 mls/hr IV .Q12H3M [facility] Last Admin: 12/27/16 11:03 Dose: 83 mls/hr Iron Sucrose 200 mg/ Sodium (Chloride) 110 mls @ 110 mls/hr IVPB ONCE ONE Stop: 12/28/16 09:59 Pantoprazole Sodium (Protonix Inj) 40 mg IVP DAILY [facility] Last Admin: 12/27/16 11:00 Dose: 40 mg Zolpidem Tartrate (Ambien) 5 mg PO HS PRN; Protocol PRN Reason: Insomnia Last Admin: 12/27/16 22:55 Dose: 5 mg - Labs Labs: 12/27/16 06:30 12/27/16 06:30 PT 11.3 Seconds (9.9-11.8) 12/26/16 14:20 INR 1.05 (0.93-1.08) 12/26/16 14:20 APTT 26.3 Seconds (23.7-30.8) 12/26/16 14:20 - Constitutional Appears: Well, Non-toxic, No Acute Distress - Head Exam Head Exam: ATRAUMATIC, NORMOCEPHALIC - Eye Exam Eye Exam: Normal appearance. absent: Conjunctival injection, Scleral icterus - ENT Exam ENT Exam: Mucous Membranes Moist, Normal Oropharynx - Respiratory Exam Respiratory Exam: NORMAL BREATHING PATTERN. absent: Accessory Muscle Use, Respiratory Distress - Cardiovascular Exam Cardiovascular Exam: RRR - GI/Abdominal Exam GI & Abdominal Exam: Soft. absent: Distended, Tenderness - Extremities Exam Extremities Exam: absent: Pedal Edema, Tenderness Additional comments: BL lower extremity contractures - Back Exam Back Exam: NORMAL INSPECTION. absent: CVA tenderness (L), CVA tenderness (R), vertebral tenderness - Neurological Exam Neurological Exam: Alert, Awake, Oriented x3 - Psychiatric Exam Psychiatric exam: Normal Affect, Normal Mood - Skin Skin Exam: Dry, Intact, Normal Color, Warm Assessment and Plan - Assessment and Plan (Free Text) Assessment: This is an 81 yo F with PMHx of GI bleeding and gastric ulcer C/O intermittent epigastric pain and hematemesis most likely secondary to gastric ulcer and H. pylori infection. s/p 2 units PRBC's H/H 11.3/32.8 Iron: 13, TIBC 188, TIBC saturation 17% K: 3.2 Plan: - NPO - Rx omeprazole, loratadine, venofer - Follow hemoglobin and hematocrit in AM. - F/u GI recs - Hold home anti-hypertensives at this time due to normal BP D/W Dr. Johnson
[2016-12-28 00:12] LABS: ALB/GLOB RATIO 1.2 (1.1-1.8); ALKALINE PHOSPHATASE 55 U/L (38-133); ALT/SGPT 32 U/L (7-56); AST/SGOT 42 U/L (15-39); BLOOD UREA NITROGEN 9 mg/dL (7-21); CALCIUM 8.4 mg/dL (8.4-10.5); CARBON DIOXIDE 25 mmol/L (21-33); CHLORIDE 104 mmol/L (98-107); GFR AFRICAN-AMERICAN > 60; GLUCOSE,RANDOM 82 mg/dL (70-110); POTASSIUM 3.2 mmol/L (3.6-5.0); SODIUM 139 mmol/L (132-148); TOTAL PROTEIN 5.9 g/dL (5.8-8.3)
--- NOTE | 2016-12-28 00:41 | CON ---
DATE: 12/27/2016 ADDENDUM: SUBJECTIVE: This patient was seen and evaluated earlier. This is an addendum to the GI consultation report dictated by Delaney Osman NP. The patient hadh/o UGI bleeding and anemia. Upper GI endoscopy done during last admission showed LA grade 3 esophagitis with ulcerations.O/E Abdomen soft no mass no tenderness PLAN: 1. Would recommend now followup of the hemoglobin, hematocrit and transfuse. 2. Continue the IV Protonix. 3. Would need a repeat endoscopy in about 6-8 weeks' time. 4. We will continue to closely follow up her care and suggest further recommendation based on the clinical course. Erika Grey MD cc: [id number] TT: 12/28/2016 00:40:36 Confirmation # [id number] Dictation # [id number] lyric MURRY
[2016-12-28 00:50] LABS: HEMATOCRIT 32.8 % (36.0-48.0)
[2016-12-28 10:02] LABS: ALB/GLOB RATIO 1.1 (1.1-1.8); ALKALINE PHOSPHATASE 59 U/L (38-133); ALT/SGPT 26 U/L (7-56); AST/SGOT 22 U/L (15-39); BILIRUBIN,TOTAL 0.9 mg/dL (0.2-1.3); BLOOD UREA NITROGEN 6 mg/dL (7-21); CALCIUM 8.5 mg/dL (8.4-10.5); CARBON DIOXIDE 23 mmol/L (21-33); CHLORIDE 104 mmol/L (98-107); GFR AFRICAN-AMERICAN > 60; GLUCOSE,RANDOM 195 mg/dL (70-110); POTASSIUM 3.7 mmol/L (3.6-5.0); SODIUM 139 mmol/L (132-148); TOTAL PROTEIN 6.5 g/dL (5.8-8.3)
[2016-12-28 10:11] LABS: ADD MANUAL DIFF? NO
[2016-12-28 10:12] LABS: BASO # 0.06 K/mm3 (0.0-2.0); BASO % 0.6 % (0.0-3.0); EOS # 0.5 (0.0-0.7); EOS % 4.8 % (1.5-5.0); GRAN # 7.71 (1.4-6.5); GRAN % 73.2 % (50.0-68.0); HEMATOCRIT 36.6 % (36.0-48.0); LYMPH # 1.5 (1.2-3.4); LYMPH % 14.3 % (22.0-35.0); MEAN CELL VOLUME 91.3 fL (80.0-105.0); MEAN CORPUSCULAR HEMOGLOBIN 31.2 pg (25.0-35.0); MEAN CORPUSCULAR HGB CONC 34.2 g/dl (31.0-37.0); MEAN PLATELET VOLUME 9.4 fl (7.0-11.0); MONO # 0.8 (0.1-0.6); MONO % 7.1 % (1.0-6.0); PLATELET COUNT 468 10^3/uL (120.0-450.0); RED CELL DISTRIBUTION WIDTH 15.2 % (11.5-14.5); WHITE BLOOD COUNT 10.5 10^3/ul (4.5-11.0)
[2016-12-28] MEDS: Potassium Chl 30 mEq in D5-1/2 1,000 ML IV SCH (17:13)
--- NOTE | 2016-12-28 22:00 | PN ---
DATE: 12/28/2016 SUBJECTIVE: This patient was seen and evaluated earlier today. The patient was on liquid diet, tole rating. The patient is hungry, wants to increase the diet. Wants to eat solid food. PHYSICAL EXAMINATION: VITAL SIGNS: Temperature is 97.6, pulse 75, blood pressure is 130/88. HEENT: Atraumatic, anicteric. NECK: Supple. HEART: S1, S2 heard. LUNGS: Bilateral air entry present. ABDOMEN: Soft. No mass. No tenderness. LABORATORY DATA: Hemoglobin 12.5, hematocrit 37.6, WBC 7.3, platelet 240. BUN 18, creatinine is 1.4 . IMPRESSION: This 81-year-old patient admitted with anemia, upper gastrointestinal bleeding. Endosco py done last admission showed grade C esophageal ulcerations. Presently, hemoglobin is stable. The patient is on Protonix once daily, vitamin. We will continue that along with the Carafate. We will advance the diet to pureed diet. Thank you and will repeat endoscopy in about 2 months' time. Thank you for allowing me to participate in the care of the patient. Erika Grey MD cc: [id number] TT: 12/28/2016 21:59:41 Confirmation # [id number] Dictation # [id number] lyric
--- NOTE | 2016-12-29 07:50 | CP.PCM.PN ---
Subjective - Date & Time of Evaluation Date of Evaluation: 12/29/16 Time of Evaluation: 07:48 - Subjective Subjective: Surgery: Dr. Johnson Pt seen and examined. Resting comfortably in bed. Tolerating diet. No N/V. + Flatus, no BM. Objective - Vital Signs/Intake and Output Vital Signs (last 24 hours): Temp Pulse Resp BP Pulse Ox 98.4 F 64 16 141/79 94 L 12/28/16 16:00 12/28/16 16:00 12/28/16 16:00 12/28/16 16:00 12/28/16 16:00 Intake and Output: 12/29/16 12/29/16 06:59 18:59 Intake Total 2672 Output Total 1200 Balance 1472 - Medications Medications: Current Medications Potassium Chloride/Dextrose/Sod Cl (Potassium Chl 30 Meq In D5-1/2ns) 1,000 mls @ 83 mls/hr IV .Q12H3M [facility] Last Admin: 12/28/16 17:13 Dose: 83 mls/hr Pantoprazole Sodium (Protonix Inj) 40 mg IVP DAILY [facility] Last Admin: 12/28/16 10:15 Dose: 40 mg Sucralfate (Carafate Oral Susp) 1 gm PO BID [facility]ER Zolpidem Tartrate (Ambien) 5 mg PO HS PRN; Protocol PRN Reason: Insomnia Last Admin: 12/28/16 21:00 Dose: 5 mg - Labs Labs: 12/28/16 09:45 12/28/16 08:00 PT 11.3 Seconds (9.9-11.8) 12/26/16 14:20 INR 1.05 (0.93-1.08) 12/26/16 14:20 APTT 26.3 Seconds (23.7-30.8) 12/26/16 14:20 - Constitutional Appears: Non-toxic, No Acute Distress - Head Exam Head Exam: ATRAUMATIC, NORMOCEPHALIC - Eye Exam Eye Exam: EOMI - ENT Exam ENT Exam: Mucous Membranes Moist - Respiratory Exam Respiratory Exam: NORMAL BREATHING PATTERN. absent: Accessory Muscle Use, Respiratory Distress - GI/Abdominal Exam GI & Abdominal Exam: Soft. absent: Distended, Firm, Guarding, Rigid, Tenderness - Extremities Exam Extremities Exam: absent: Calf Tenderness, Pedal Edema - Neurological Exam Neurological Exam: Alert, Awake, Oriented x3 - Psychiatric Exam Psychiatric exam: Normal Affect, Normal Mood - Skin Skin Exam: Dry, Normal Color, Warm Assessment and Plan - Assessment and Plan (Free Text) Assessment: 81F w. esophageal ulcers and intermittent hematemasis w. abd pain improved -monitor H/H, transfuse PRN -stool occult blood positive -per GI repeat endoscopy in 6-8 weeks -d/w attending Zemaitis PGY2
[2016-12-29] MEDS: Potassium Chl 30 mEq in D5-1/2 1,000 ML IV SCH (07:53)
[2016-12-29 08:06] VITALS: BP 136/75; PULSE 80; RESP 20; TEMP 97.9; O2SAT 95
[2016-12-29 08:27] LABS: ADD MANUAL DIFF? NO
[2016-12-29 08:36] LABS: BASO # 0.05 K/mm3 (0.0-2.0); BASO % 0.4 % (0.0-3.0); EOS # 0.7 (0.0-0.7); GRAN # 9.12 (1.4-6.5); GRAN % 70.3 % (50.0-68.0); HEMATOCRIT 37.9 % (36.0-48.0); LYMPH # 2.1 (1.2-3.4); LYMPH % 16.4 % (22.0-35.0); MEAN CELL VOLUME 91.8 fL (80.0-105.0); MEAN CORPUSCULAR HEMOGLOBIN 31.2 pg (25.0-35.0); MEAN PLATELET VOLUME 10.1 fl (7.0-11.0); MONO % 7.9 % (1.0-6.0); PLATELET COUNT 512 10^3/uL (120.0-450.0); RED CELL DISTRIBUTION WIDTH 14.9 % (11.5-14.5)
[2016-12-29 08:44] LABS: ALB/GLOB RATIO 1.1 (1.1-1.8); ALKALINE PHOSPHATASE 67 U/L (38-133); ALT/SGPT 28 U/L (7-56); AST/SGOT 27 U/L (15-39); BILIRUBIN,TOTAL 0.8 mg/dL (0.2-1.3); BLOOD UREA NITROGEN 3 mg/dL (7-21); CALCIUM 8.9 mg/dL (8.4-10.5); CARBON DIOXIDE 24 mmol/L (21-33); CHLORIDE 108 mmol/L (98-107); GFR AFRICAN-AMERICAN > 60; GLUCOSE,RANDOM 99 mg/dL (70-110); POTASSIUM 3.9 mmol/L (3.6-5.0); SODIUM 141 mmol/L (132-148); TOTAL PROTEIN 6.8 g/dL (5.8-8.3)
[2016-12-29] MEDS ORDERED: Sucralfate 1 gm/10 ml Oral Susp UD PO SCH (10:00)
[2016-12-29 11:49] LABS: IRON 97 ug/dL (45-180)
--- NOTE | 2016-12-30 08:30 | PN ---
DATE: 12/29/2016 SUBJECTIVE: This patient was seen and evaluated earlier today. Tolerating the diet. PHYSICAL EXAMINATION: VITAL SIGNS: Temperature is 97.9, blood pressure is 1 6/ 5, pulse is 80, respirations 20, O2 saturation is 95. HEENT: Atraumatic, anicteric. NECK: Supple. HEART: S1, S2 heard. LUNGS: Bilateral air entry present. ABDOMEN: Soft. LABORATORY DATA: Hemoglobin is 12.9, hematocrit 37.9, WBC is 13, platelets 512. Chemistries: BUN 1 3, creatinine 0.5. IMPRESSION: This 81-year-old patient admitted with anemia, coffee ground vomitus. The patient did h ave an endoscopy done before that showed grade 3 esophageal ulcerations. The patient has a moti lity dysfunction. In addition to that, the patient at this time was admitted to the unit for urinary tract infection. PLAN: The patient is being discharged. I spoke with the nurse at the time of discharge. The patien t is home and patient did not include Protonix. I gave a prescription for Protonix and this needs to be continued for at least 2 months. The patient needs to be on long-term PPI maintenance dose in li eu of the significant with dysfunction. The repeating endoscopy in 2 months' morena e. The patient is also on Carafate. The patient is also and was also given a prescription for Cipro for the outpatient completion of treatment for urinary tract infection. Thank you very much for allowing us to participate in the care of the patient. Will also discuss rona Johnson. I had a lengthy discussion with the patient at the time of discharge regarding the importance of foll owing the diet and recommendations. The patient also was told about the importance of having a follo wup endoscopy in about 2 months' time. Erika Grey MD cc: [id number] TT: 12/30/2016 00:31:05 Confirmation # [id number] Dictation # [id number] mn
--- NOTE | 2017-02-23 22:04 | DS ---
HISTORY OF PRESENT ILLNESS: The patient is an 81-year-old female with a history of chronic GI bleeding secondary to gastric ulceration, hypertension, cerebral palsy and essentially bedridden state with multiple rheumatoid contractures. She had a previous history of being in the hospital for peptic ulceration and was transfused and had been doing well until the following week before admissi on she started vomiting and was noted by her family to have bloody emesis and coffee-ground material. PAST MEDICAL HISTORY: Includes a hysterectomy. ALLERGIES: INCLUDE SULFA WITH RASH. MEDICATIONS: Include Norvasc, Ambien, valsartan, hydrochlorothiazide, tramadol, iron, hydroxychloroq uine, Tranxene, Os-Moises, Lipitor, Tenormin, Carafate, Protonix and Cipro. SOCIAL HISTORY: Denies. PHYSICAL EXAMINATION: VITAL SIGNS: She is 4 feet 9 inches and is 110 pounds. HEENT: The conjunctivae are pale and the patient is significantly dehydrated. NEUROLOGIC: Multiple contractures and rheumatoid disorders are present and have been unchanged for m any years. She is essentially bedbound or wheelchair bound. LABORATORY DATA: The white count is 12.7, hemoglobin is 9.1. She was transfused 2 units of blood an d hemoglobin initially dropped to 7.9 and then rises to 12.9. Platelet count is 548,000. Coagulatio n studies are normal. Electrolytes are all right with a potassium of 3.4. BUN of 16 which drops to 3 with hydration. BNP is 893. Liver function tests were all normal. Iron is 13 and after an iron i nfusion rises to 97. HOSPITAL COURSE: The patient received iron, hydration both parenterally and with the drop in the hem oglobin below 8 receives 2 units of blood. The patient's stops vomiting after 36 hours and undergoes endoscopy demonstrating an esophageal tear and ulceration which is the presumptive cause of the blee ding. The patient is able to tolerate liquids and diet and be discharged on 12/29/2016 with the same medication and office followup. DISCHARGE DIAGNOSES: Included anemia secondary to intractable vomiting and esophageal ulceration wit h gastrointestinal bleeding, hypertension, rheumatoid disease, chronic hip dislocation secondary to c erebral palsy. This dictation will be electronically signed without being read. Hitesh Johnson MD cc: [phone] TT: 02/23/2017 22:04:18 mn
== END 2016-12-29 15:07 | disposition home or self-care (01) | DRG 378 ==
LOC: ED 13:25 → ERH 15:27 → 5RSO 19:07
PROVIDERS: ADMIT Surgery; ATTEND Surgery
PROC: 30233N1 Transfusion of Nonautologous Red Blood Cells into Peripheral Vein, Percutaneous Approach (ICD-10-PCS; principal; 2016-12-27)
DX: K25.4 Chronic or unspecified gastric ulcer with hemorrhage (principal); K22.10 Ulcer of esophagus without bleeding; N39.0 Urinary tract infection, site not specified; D50.0 Iron deficiency anemia secondary to blood loss (chronic); I10 Essential (primary) hypertension; E87.6 Hypokalemia; G80.9 Cerebral palsy, unspecified; K20.9 Esophagitis, unspecified; Z86.73 Personal history of transient ischemic attack (TIA), and cerebral infarction without residual deficits; Z88.2 Allergy status to sulfonamides; Z87.11 Personal history of peptic ulcer disease; K44.9 Diaphragmatic hernia without obstruction or gangrene

== ENCOUNTER 2018-07-01 00:46 | Inpatient (IN) | payer MEDICARE, BC ==
[2018-07-01 00:46] VITALS: BMI 23.8
[2018-07-01] MEDS ORDERED: Sodium Chloride 0.9% 1,000 ML IV STA (01:15)
[2018-07-01] MEDS ORDERED: Sodium Chloride 0.9% 1,000 ML IV SCH (01:15)
--- NOTE | 2018-07-01 01:33 | ED PDOC ---
Arrival/HPI - General Chief Complaint: Fever Time Seen by Provider: 07/01/18 01:12 Historian: Patient, Skilled Nursing - History of Present Illness Narrative History of Present Illness (Text): 07/01/18 01:33 83 year old female, whose past medical history includes GI bleed, cerebral palsy, hypertension, and CVA, presents to the emergency department from [facility] for evaluation of fever and decrease urine output. Patient is currently on oral antibiotics for UTI. Patient denies any complaints currently. Patient denies any chills, chest pain, shortness of breath, nausea, vomiting, diarrhea, back pain, neck pain, headache, dizziness, or any other complaints. PMD: Dr. Leonardo Proctor Symptom Onset: Gradual Symptom Course: Unchanged Activities at Onset: Light Context: Home (care home) Past Medical History - Provider Review Nursing Documentation Reviewed: Yes - Infectious Disease Hx of Infectious Diseases: None - Tetanus Immunization Tetanus Immunization: Unknown - Cardiac Hx Hypertension: Yes - Pulmonary Hx Respiratory Disorders: No - Neurological HX Cerebrovascular Accident: Yes Other/Comment: cerebral palsy - HEENT Hx HEENT Disorder: No - Renal Hx Renal Disorder: No - Endocrine/Metabolic Hx Endocrine Disorders: No - Hematological/Oncological Hx Blood Disorders: No - Integumentary Hx Dermatological Disorder: Yes (IASD) - Musculoskeletal/Rheumatological Hx Falls: Yes (past) - Gastrointestinal Hx Gastrointestinal Disorders: Yes - Genitourinary/Gynecological Hx Genitourinary Disorders: Yes Hx Incontinence: Yes - Psychiatric Hx Depression: No Hx Emotional Abuse: No Hx Physical Abuse: No Hx Substance Use: No - Past Surgical History Past Surgical History: Unable to Obtain - Surgical History Hx Hysterectomy: Yes Other/Comment: CORRECTION OF DEVELOPMENTAL DYSPLASIA OF HIP. - Anesthesia Hx Anesthesia: No - Suicidal Assessment Feels Threatened In Home Enviroment: No Family/Social History - Physician Review Nursing Documentation Reviewed: Yes Family/Social History: No Known Family HX Smoking Status: Never Smoked Hx Alcohol Use: No Hx Substance Use: No Hx Substance Use Treatment: No Allergies/Home Meds Allergies/Adverse Reactions: Allergies Sulfa (Sulfonamide Antibiotics) Allergy (Verified 12/16/16 15:39) RASH Home Medications: Home Meds Medication Instructions Recorded Confirmed Atenolol [Tenormin] 25 mg PO DAILY 12/16/16 07/01/18 Atorvastatin [Lipitor] 10 mg PO DIN 12/16/16 07/01/18 Calcium Carbonate [Oscal] 0 mg PO DAILY 12/16/16 07/01/18 Clorazepate Dipotassium [Tranxene 3.75 mg PO PRN 12/16/16 07/01/18 T-Tab] Hydroxychloroquine Sulfate 200 mg PO DAILY 12/16/16 07/01/18 Iron/Folate No1/C/B12/Zinc/Dss 1 tab PO DAILY 12/16/16 12/26/16 [Feriva 21-7 Tablet] Tramadol HCl/Acetaminophen 1 tab PO DAILY 12/16/16 12/26/16 [Tramadol-Acetaminophn 37.5-325] Valsartan/Hydrochlorothiazide 1 each PO DAILY 12/16/16 07/01/18 [Diovan Hct 160-12.5 mg Tab] Zolpidem [Ambien] 5 mg PO PRN PRN 12/16/16 07/01/18 amLODIPine [Norvasc] 10 mg PO DAILY 12/16/16 07/01/18 Review of Systems - Physician Review All systems were reviewed & negative as marked: Yes - Review of Systems Constitutional: Fevers. absent: Other (Chills) Respiratory: absent: SOB Cardiovascular: absent: Chest Pain Gastrointestinal: absent: Diarrhea, Nausea, Vomiting Genitourinary Female: Urine Output Changes Musculoskeletal: absent: Back Pain, Neck Pain Physical Exam Vital Signs Reviewed: Yes Vital Signs Temp Pulse Resp BP Pulse Ox 07/01/18 01:04 101.4 F H 95 H 21 123/55 L 92 L Temperature: Febrile Blood Pressure: Normal Pulse: Regular Respiratory Rate: Normal Appearance: Positive for: Well-Appearing, Non-Toxic, Comfortable Pain Distress: None Mental Status: Positive for: Alert and Oriented X 3 - Systems Exam Head: Present: Atraumatic, Normocephalic Pupils: Present: PERRL. No: Other (no discharge) Extroacular Muscles: Present: EOMI Conjunctiva: Present: Normal Mouth: Present: Dry (slight ) Neck: Present: Normal Range of Motion Respiratory/Chest: Present: Rhonchi (Scattered). No: Respiratory Distress, Accessory Muscle Use Cardiovascular: Present: Regular Rate and Rhythm, Normal S1, S2. No: Murmurs Abdomen: No: Tenderness, Distention, Peritoneal Signs Rectal: Present: Occult Blood Back: Present: Normal Inspection Upper Extremity: Present: Other (Positive contractures. Stigmata cerebral palsy ). No: Cyanosis, Edema Lower Extremity: Present: Other (Positive contractures. Stigmata cerebral palsy ). No: Edema Neurological: Present: GCS=15, CN II-XII Intact, Speech Normal Skin: Present: Warm, Dry, Normal Color. No: Rashes Psychiatric: Present: Alert, Oriented x 3, Normal Insight, Normal Concentration Medical Decision Making ED Course and Treatment: 07/01/18 01:33 Impression: 83 year old female presents for evaluation of fever and decrease urine output. Plan: -- VBG -- Labs -- EKG -- Chest X-ray -- IV Fluids -- Blood Culture, Urine Culture -- Urinary Catherter Insertion, Vital signs Q15M -- Urinalysis -- Reassess and disposition Prior Visits: Notes and results from previous visits were reviewed. Progress Notes: 07/01/18 01:55 CXR Impression: As read by me, no acute process. 07/01/18 02:[address] Solis who is aware and agrees with the plan. Accepts patient to her service. Request Dr. Grey and Dr. Sapp for consult. 07/01/18 04:18 EKG shows NSR at 92 BPM with occasional PAC. No acute changes. Interpreted by me. - Lab Interpretations I have reviewed the lab results: Yes - RAD Interpretation Radiology Orders: 07/01/18 01:13 CHEST PORTABLE [RAD] Stat - EKG Interpretation Interpreted by ED Physician: Yes Type: 12 lead EKG - Medication Orders Current Medication Orders: Sodium Chloride (Sodium Chloride 0.9%) 1,000 mls @ 999 mls/hr IV .Q1H1M STA Stop: 07/01/18 02:15 Sodium Chloride (Sodium Chloride 0.9%) 1,000 mls @ 100 mls/hr IV .Q10H ESTER - Scribe Statement The provider has reviewed the documentation as recorded by the Leyla Medina Provider Scribe Attestation: All medical record entries made by the Scribe were at my direction and personally dictated by me. I have reviewed the chart and agree that the record accurately reflects my personal performance of the history, physical exam, medical decision making, and the department course for this patient. I have also personally directed, reviewed, and agree with the discharge instructions and disposition. Disposition/Present on Arrival - Present on Arrival Any Indicators Present on Arrival: No History of DVT/PE: No History of Uncontrolled Diabetes: No Urinary Catheter: No History of Decub. Ulcer: No History Surgical Site Infection Following: None - Disposition Have Diagnosis and Disposition been Completed?: Yes Diagnosis: Sepsis, GI bleed Disposition: HOSPITALIZED Disposition Time: 02:16 Patient Plan: Admission Patient Problems: Current Active Problems Problem Status Onset Sepsis Acute GI bleed Chronic Condition: STABLE
[2018-07-01 01:40] LABS: VENOUS BLOOD GAS BASE EXCESS 0.9 mmol/L (0.0-2.0); VENOUS BLOOD GAS PO2 116 mm/Hg (30-55); VENOUS BLOOD PH 7.48 (7.32-7.43)
[2018-07-01 01:49] LABS: BASO # 0.01 K/mm3 (0.0-2.0); EOS % 0.1 % (1.5-5.0); GRAN # 24.94 (1.4-6.5); GRAN % 88.9 % (50.0-68.0); HEMOGLOBIN 11.4 g/dL (12.0-16.0); LYMPH # 1.3 (1.2-3.4); LYMPH % 4.5 % (22.0-35.0); MEAN CELL VOLUME 90.3 fl (80.0-105.0); MEAN CORPUSCULAR HEMOGLOBIN 30.6 pg (25.0-35.0); MEAN CORPUSCULAR HGB CONC 33.9 g/dl (31.0-37.0); MEAN PLATELET VOLUME 10.4 fl (7.0-11.0); MONO # 1.8 (0.1-0.6); MONO % 6.5 % (1.0-6.0); PLATELET COUNT 267 10^3/uL (120.0-450.0); RBC 3.72 10^6/uL (3.5-6.1); RED CELL DISTRIBUTION WIDTH 13.7 % (11.5-14.5)
[2018-07-01 01:54] LABS: INR 1.21; PARTIAL THROMBOPLASTIN TIME 33.6 Seconds (25.1-36.5); PROTHROMBIN TIME 13.9 SECONDS (9.4-12.5)
[2018-07-01 01:55] LABS: WHITE BLOOD COUNT 28.1 10^3/uL (4.5-11.0)
[2018-07-01 02:06] LABS: ALB/GLOB RATIO 1.1 (1.1-1.8); ALBUMIN 3.2 g/dL (3.0-4.8); ALT/SGPT 27 U/L (7-56); AST/SGOT 44 U/L (14-36); BLOOD UREA NITROGEN 33 mg/dL (7-21); CALCIUM 8.6 mg/dL (8.4-10.5); GFR NON-AFRICAN AMERICAN > 60
[2018-07-01] MEDS ORDERED: Potassium Chloride 20 mEq ER Tab PO STA (02:08)
[2018-07-01 02:10] LABS: URINE BILIRUBIN NEGATIVE (NEGATIVE); URINE BLOOD NEGATIVE (NEGATIVE); URINE GLUCOSE (UA) NEGATIVE (NEGATIVE); URINE LEUKOCYTE ESTERASE NEGATIVE Leu/uL (NEGATIVE); URINE PROTEIN 30 mg/dL (<30 mg/dL); URINE UROBILINOGEN 0.2 E.U./dL (<1 E.U./dL)
[2018-07-01 02:11] LABS: URINE APPEARANCE CLEAR (CLEAR); URINE COLOR YELLOW (YELLOW)
[2018-07-01] MEDS ORDERED: Vancomycin 1gm in NS 250ml 1 GM/250 ML BAG IVPB STA (02:11)
[2018-07-01] MEDS ORDERED: Piperacillin/Tazobact 3.375 gm 100 ML IV STA (02:14)
[2018-07-01] MEDS ORDERED: Sodium Chloride 0.9% 450 ML IV STA (02:15)
[2018-07-01 02:23] LABS: URINE AMORPHOUS SEDIMENT FEW; URINE BACTERIA RARE (NEG); URINE EPITHELIAL CELLS 0 - 2 /hpf (0-5); URINE RBC 0 - 2 /hpf (0-2); URINE WBC 0 - 2 /hpf (0-6)
[2018-07-01 02:42] LABS: NEUTROPHIL 70 % (50.0-70.0)
[2018-07-01 02:43] LABS: ATYPICAL LYMPHOCYTE 2 % (0.0-0.0); BAND 13 % (0-2); LYMPHOCYTE 7 % (22.0-35.0); METAMYELOCYTE 1 %; MONOCYTE 7 % (1.0-6.0); PLATELET ESTIMATE NORMAL (NORMAL)
[2018-07-01] MEDS ORDERED: Barium Sulfate Susp 2.1% w/v, 2.0% w/w 450 mL Bottle PO ONE (07:26)
[2018-07-01] MEDS: Piperacillin/Tazobact 3.375 gm 100 ML IVPB SCH ×3 (08:10→22:03)
--- NOTE | 2018-07-01 09:32 | US ---
Date of service: 07/01/2018 HISTORY: r/o cholecystitis COMPARISON: None. TECHNIQUE: Sonographic evaluation of the right upper quadrant of the abdomen. FINDINGS: LIVER: Measures 15.9 cm in length. Normal echogenicity of the liver parenchyma. No mass. No intrahepatic bile duct dilatation. GALLBLADDER: Gallstones, collapsed gallbladder gallbladder wall edema. No sonographic Archer's sign or pericholecystic fluid. COMMON BILE DUCT: Measures 14.0 mm. No stones. Iliac common duct is dilated there is no evidence of intrahepatic bile duct dilatation. Possibility of choledocholithiasis should be considered. PANCREAS: Unremarkable as visualized. No mass. No ductal dilatation. RIGHT KIDNEY: Measures 4.0 x 8.2 cm in length. 5 mm echogenic focus consistent with nonobstructing calculus AORTA: No aneurysmal dilatation.. IVC: Unremarkable. OTHER FINDINGS: None . IMPRESSION: Collapsed gallbladder accentuating gallbladder wall edema. Cholelithiasis. Dilated common bile duct without intrahepatic bile duct dilatation. Portions of the distal common bile duct are not visible therefore choledocholithiasis is not excluded as an etiology for this finding.
--- NOTE | 2018-07-01 10:20 | CP.PCM.CON ---
<Khari Wiley - Last Filed: 07/01/18 10:17> History of Present Illness - History of Present Illness History of Present Illness: PGY-2 GI consult note for Dr Grey. Mrs Faustin is a 83 year old totally dependent female, who's past medical history includes GI bleed, cerebral palsy, hypertension, and CVA, presents to the emergency department from group home for evaluation of fever and decrease urine output. Patient was on oral antibiotics for UTI. She stated she has some abdominal tenderness most prominent on the right side. She stated the abdominal pain has been intermittent for the past 3 weeks. She has an episode of diarrhea yesterday and a fever of 101.4 in the ED. A rutledge was placed in the ED which collected 150cc of urine. Patient denies any chills, chest pain, shortness of breath, nausea, vomiting, back pain, neck pain, headache, dizzines. PMD: Dr. Leonardo Proctor PMHx: GI bleeding, gastric ulcer, HTN, CVA, cerebral palsy, rheumatoid palsy, developmental dysplasia of the hip PSHx: hysterectomy, surgery to correct developmental dysplasia of hip All: sulfa, sulfonamide (rash) FHx: mother had CVA. Father had colon ca. SocialHx: no tobacco hx, no alcohol use, no hx of illicit drug use Review of Systems - Constitutional Constitutional: Headache. absent: Chills, Fever - EENT Eyes: absent: Change in Vision - Cardiovascular Cardiovascular: absent: Chest Pain - Respiratory Respiratory: absent: Cough, Dyspnea - Gastrointestinal Gastrointestinal: Abdominal Pain, Bloating, Cramping. absent: Constipation, Diarrhea, Vomiting - Musculoskeletal Musculoskeletal: Back Pain - Integumentary Integumentary: absent: Bleeding Lesions Past Patient History - Infectious Disease Hx of Infectious Diseases: None - Tetanus Immunizations Tetanus Immunization: Unknown - Past Social History Smoking Status: Unknown If Ever Smoked - CARDIAC Hx Hypertension: Yes - PULMONARY Hx Respiratory Disorders: No - NEUROLOGICAL HX Cerebrovascular Accident: Yes Other/Comment: cerebral palsy - HEENT Hx HEENT Problems: No - RENAL Hx Chronic Kidney Disease: No - ENDOCRINE/METABOLIC Hx Endocrine Disorders: No - HEMATOLOGICAL/ONCOLOGICAL Hx Blood Disorders: No - INTEGUMENTARY Hx Dermatological Problems: Yes (IASD) - MUSCULOSKELETAL/RHEUMATOLOGICAL Hx Falls: Yes - GASTROINTESTINAL Hx Gastrointestinal Disorders: Yes - GENITOURINARY/GYNECOLOGICAL Hx Genitourinary Disorders: Yes Hx Incontinence: Yes - PSYCHIATRIC Hx Depression: No Hx Emotional Abuse: No Hx Physical Abuse: No - SURGICAL HISTORY Hx Hysterectomy: Yes Other/Comment: CORRECTION OF DEVELOPMENTAL DYSPLASIA OF HIP. - ANESTHESIA Hx Anesthesia: No Meds Allergies/Adverse Reactions: Allergies Allergy/AdvReac Type Severity Reaction Status Date / Time Sulfa (Sulfonamide Allergy RASH Verified 12/16/16 15:39 Antibiotics) - Medications Medications: Current Medications Sodium Chloride (Sodium Chloride 0.9%) 1,000 mls @ 100 mls/hr IV .Q10H ESTER Last Admin: 07/01/18 06:03 Dose: 100 mls/hr Piperacillin Sod/Tazobactam Sod (Zosyn 3.375 In Ns 100ml) 100 mls @ 25 mls/hr IVPB Q8 ESTER; Protocol Stop: 07/10/18 07:16 Physical Exam - Constitutional Appears: Well, Non-toxic, No Acute Distress - Head Exam Head Exam: ATRAUMATIC, NORMAL INSPECTION - Eye Exam Eye Exam: EOMI, Normal appearance, PERRL. absent: Scleral icterus - ENT Exam ENT Exam: Mucous Membranes Moist - Respiratory Exam Respiratory Exam: Rhonchi. absent: Clear to Auscultation Bilateral, Rales, Wheezes - Cardiovascular Exam Cardiovascular Exam: REGULAR RHYTHM, +S1, +S2, Systolic Murmur - GI/Abdominal Exam GI & Abdominal Exam: Normal Bowel Sounds, Soft, Tenderness. absent: Distended, Firm, Guarding, Hernia - Rectal Exam Additional comments: rectal performed by ED physician showed occult blood - Extremities Exam Additional comments: Positive for contractures. Stigmata of cerebral palsy. rheumatoid palsy of hands/wrists - Neurological Exam Neurological exam: Alert, CN II-XII Intact, Oriented x3 - Skin Skin Exam: Normal Color, Warm Results - Vital Signs Recent Vital Signs: Last Vital Signs Temp 102.1 F H 07/01/18 06:00 Pulse 89 07/01/18 06:28 Resp 19 07/01/18 06:28 BP 99/48 L 07/01/18 06:28 Pulse Ox 95 07/01/18 06:28 - Labs Result Diagrams: 07/01/18 01:30 07/01/18 01:30 Labs: Laboratory Results - last 24 hr 10/31/18 10/31/18 10/31/18 01:30 01:30 01:30 WBC 28.1 H* RBC 3.72 Hgb 11.4 L Hct 33.6 L MCV 90.3 MCH 30.6 MCHC 33.9 RDW 13.7 Plt Count 267 MPV 10.4 Gran % 88.9 H Lymph % (Auto) 4.5 L [place] % (Auto) 6.5 H Eos % (Auto) 0.1 L Baso % (Auto) 0.0 Gran # 24.94 H Lymph # (Auto) 1.3 [place] # (Auto) 1.8 H Eos # (Auto) 0.0 Baso # (Auto) 0.01 Neutrophils % (Manual) 70 Band Neutrophils % 13 H* Lymphocytes % (Manual) 7 L Atypical Lymphs % 2 H Monocytes % (Manual) 7 H Metamyelocytes % 1 Platelet Evaluation Normal PT 13.9 H INR 1.21 APTT 33.6 pO2 116 H VBG pH 7.48 H VBG pCO2 32.0 L VBG HCO3 23.8 VBG Total CO2 24.8 VBG O2 Sat (Calc) 98.4 H VBG Base Excess 0.9 VBG Potassium 3.5 L Sodium 133.0 Chloride 101.0 Glucose 119 H Lactate 1.4 FiO2 21.0 Potassium Carbon Dioxide Anion Gap BUN Creatinine Est GFR ( Amer) Est GFR (Non-Af Amer) Random Glucose Calcium Phosphorus Magnesium Total Bilirubin AST ALT Alkaline Phosphatase Total Protein Albumin Globulin Albumin/Globulin Ratio Venous Blood Potassium 3.5 L Urine Color Urine Appearance Urine pH Ur Specific [place] Urine Protein Urine Glucose (UA) Urine Ketones Urine Blood Urine Nitrate Urine Bilirubin Urine Urobilinogen Ur Leukocyte Esterase Urine RBC Urine WBC Ur Epithelial Cells Amorphous Sediment Urine Bacteria 07/01/18 07/01/18 01:30 01:58 WBC RBC Hgb Hct MCV MCH MCHC RDW Plt Count MPV Gran % Lymph % (Auto) [place] % (Auto) Eos % (Auto) Baso % (Auto) Gran # Lymph # (Auto) [place] # (Auto) Eos # (Auto) Baso # (Auto) Neutrophils % (Manual) Band Neutrophils % Lymphocytes % (Manual) Atypical Lymphs % Monocytes % (Manual) Metamyelocytes % Platelet Evaluation PT INR APTT pO2 VBG pH VBG pCO2 VBG HCO3 VBG Total CO2 VBG O2 Sat (Calc) VBG Base Excess VBG Potassium Sodium 135 Chloride 102 Glucose Lactate FiO2 Potassium 3.1 L Carbon Dioxide 24 Anion Gap 12 BUN 33 H Creatinine 0.7 Est GFR ( Amer) > 60 Est GFR (Non-Af Amer) > 60 Random Glucose 110 Calcium 8.6 Phosphorus 2.7 Magnesium 1.7 Total Bilirubin 1.2 AST 44 H ALT 27 Alkaline Phosphatase 65 Total Protein 6.2 Albumin 3.2 Globulin 3.0 Albumin/Globulin Ratio 1.1 Venous Blood Potassium Urine Color Yellow Urine Appearance Clear Urine pH 6.0 Ur Specific [place] 1.025 Urine Protein 30 H Urine Glucose (UA) Negative Urine Ketones Negative Urine Blood Negative Urine Nitrate Negative Urine Bilirubin Negative Urine Urobilinogen 0.2 Ur Leukocyte Esterase Negative Urine RBC 0 - 2 Urine WBC 0 - 2 Ur Epithelial Cells 0 - 2 Amorphous Sediment Few Urine Bacteria Rare Assessment & Plan - Assessment and Plan (Free Text) Plan: Mrs Faustin is a 83 year old totally dependent female, who's past medical history includes GI bleed, cerebral palsy, hypertension, and CVA, presents to the emergency department from group home for evaluation of fever and decrease urine output: Abdominal Pain -most prominent in right upper quadrant, also with fever and leukocytosis and hypotension -abdominal ultrasound 07/01 * gallstones, collapsed gallbladder, gallbladder wall edema, no sonographic flanagan's sign or pericholecystic fluid, common bile duct measures 14mm with no stones -ID on board, started zosyn 3.375g ivp q8h 07/01 -f/u CT abd/pelvis po contrast -f/u biliary hida scan -keep npo for now -f/u blood and urine cx GI Bleed -self reported hx of diarrhea that was black in color (however takes iron tablets at group home) -FOBT positive -hgb 11.4 on admission with normal mcv -has a hx of esophageal ulcers as a bleeding source as confirmed by EGD in Previous GI procedures: -EGD 11/2016 showed grade c esophageal ulcerations and a 5cm hiatal hernia (report not available in [employer]) Seen and discussed with Dr Grey <Erika Grey V - Last Filed: 07/02/18 01:21> Meds - Medications Medications: Current Medications Acetaminophen (Tylenol 325mg Tab) 650 mg PO Q6H PRN PRN Reason: Fever >100.4 F Last Admin: 07/01/18 20:15 Dose: 650 mg Acetylcysteine (Acetylcysteine 20%) 4 ml IH [id number] PRN PRN Reason: Shortness of Breath Albuterol/Ipratropium (Duoneb 3 Mg/0.5 Mg (3 Ml) Ud) 3 ml IH [id number] ESTER Last Admin: 07/01/18 20:08 Dose: 3 ml Hydromorphone HCl (Dilaudid) 0.5 mg IVP Q4H PRN PRN Reason: Pain, moderate (4-7) Piperacillin Sod/Tazobactam Sod (Zosyn 3.375 In Ns 100ml) 100 mls @ 25 mls/hr IVPB Q8 ESTER; Protocol Stop: 07/10/18 07:16 Last Admin: 07/01/18 22:03 Dose: 25 mls/hr Metronidazole (Flagyl) 500 mg in 100 mls @ 100 mls/hr IVPB Q8 ESTER; Protocol Last Admin: 07/01/18 21:50 Dose: 100 mls/hr Sodium Chloride (Sodium Chloride 0.9%) 1,000 mls @ 60 mls/hr IV .[id number] [facility] Last Admin: 07/01/18 20:00 Dose: 60 mls/hr Methylprednisolone (Solu-Medrol) 30 mg IV Q12 ESTER Last Admin: 07/01/18 21:51 Dose: 30 mg Ondansetron HCl (Zofran Inj) 4 mg IVP Q6H PRN PRN Reason: Nausea/Vomiting Pantoprazole Sodium (Protonix Inj) 40 mg IVP DAILY [facility] Last Admin: 07/01/18 11:40 Dose: 40 mg Vancomycin HCl (Vancocin 25 Mg/Ml (Oral Use)) 125 mg PO QID ESTER; Protocol Last Admin: 07/01/18 21:50 Dose: 125 mg Zolpidem Tartrate (Ambien) 5 mg PO HS PRN; Protocol PRN Reason: Insomnia Results - Vital Signs Recent Vital Signs: Last Vital Signs Temp 98.8 F 07/02/18 00:01 Pulse 88 07/02/18 00:01 Resp 20 07/02/18 00:01 BP 96/42 L 07/02/18 00:01 Pulse Ox 91 L 07/02/18 00:01 - Labs Result Diagrams: 07/01/18 01:30 07/01/18 01:30 Labs: Laboratory Results - last 24 hr 07/01/18 07/01/18 07/01/18 01:30 01:30 01:30 WBC 28.1 H* RBC 3.72 Hgb 11.4 L Hct 33.6 L MCV 90.3 MCH 30.6 MCHC 33.9 RDW 13.7 Plt Count 267 MPV 10.4 Gran % 88.9 H Lymph % (Auto) 4.5 L [place] % (Auto) 6.5 H Eos % (Auto) 0.1 L Baso % (Auto) 0.0 Gran # 24.94 H Lymph # (Auto) 1.3 [place] # (Auto) 1.8 H Eos # (Auto) 0.0 Baso # (Auto) 0.01 Neutrophils % (Manual) 70 Band Neutrophils % 13 H* Lymphocytes % (Manual) 7 L Atypical Lymphs % 2 H Monocytes % (Manual) 7 H Metamyelocytes % 1 Platelet Evaluation Normal PT 13.9 H INR 1.21 APTT 33.6 pO2 116 H VBG pH 7.48 H VBG pCO2 32.0 L VBG HCO3 23.8 VBG Total CO2 24.8 VBG O2 Sat (Calc) 98.4 H VBG Base Excess 0.9 VBG Potassium 3.5 L Sodium 133.0 Chloride 101.0 Glucose 119 H Lactate 1.4 FiO2 21.0 Potassium Carbon Dioxide Anion Gap BUN Creatinine Est GFR ( Amer) Est GFR (Non-Af Amer) Random Glucose Calcium Phosphorus Magnesium Total Bilirubin AST ALT Alkaline Phosphatase Total Protein Albumin Globulin Albumin/Globulin Ratio Venous Blood Potassium 3.5 L Urine Color Urine Appearance Urine pH Ur Specific [place] Urine Protein Urine Glucose (UA) Urine Ketones Urine Blood Urine Nitrate Urine Bilirubin Urine Urobilinogen Ur Leukocyte Esterase Urine RBC Urine WBC Ur Epithelial Cells Amorphous Sediment Urine Bacteria Stool Occult Blood 07/01/18 07/01/18 07/01/18 01:30 01:58 11:15 WBC RBC Hgb Hct MCV MCH MCHC RDW Plt Count MPV Gran % Lymph % (Auto) [place] % (Auto) Eos % (Auto) Baso % (Auto) Gran # Lymph # (Auto) [place] # (Auto) Eos # (Auto) Baso # (Auto) Neutrophils % (Manual) Band Neutrophils % Lymphocytes % (Manual) Atypical Lymphs % Monocytes % (Manual) Metamyelocytes % Platelet Evaluation PT INR APTT pO2 VBG pH VBG pCO2 VBG HCO3 VBG Total CO2 VBG O2 Sat (Calc) VBG Base Excess VBG Potassium Sodium 135 Chloride 102 Glucose Lactate FiO2 Potassium 3.1 L Carbon Dioxide 24 Anion Gap 12 BUN 33 H Creatinine 0.7 Est GFR ( Amer) > 60 Est GFR (Non-Af Amer) > 60 Random Glucose 110 Calcium 8.6 Phosphorus 2.7 Magnesium 1.7 Total Bilirubin 1.2 AST 44 H ALT 27 Alkaline Phosphatase 65 Total Protein 6.2 Albumin 3.2 Globulin 3.0 Albumin/Globulin Ratio 1.1 Venous Blood Potassium Urine Color Yellow Urine Appearance Clear Urine pH 6.0 Ur Specific [place] 1.025 Urine Protein 30 H Urine Glucose (UA) Negative Urine Ketones Negative Urine Blood Negative Urine Nitrate Negative Urine Bilirubin Negative Urine Urobilinogen 0.2 Ur Leukocyte Esterase Negative Urine RBC 0 - 2 Urine WBC 0 - 2 Ur Epithelial Cells 0 - 2 Amorphous Sediment Few Urine Bacteria Rare Stool Occult Blood Negative Attending/Attestation - Attestation I have personally seen and examined this patient.: Yes I have fully participated in the care of the patient.: Yes I have reviewed all pertinent clinical information: Yes
--- NOTE | 2018-07-01 11:28 | CARD ---
APPROVED REPORT Date of service: 07/01/2018 EKG Measurement Heart [id number] <Conclusion> Sinus rhythm with premature atrial complexes Otherwise normal ECG
[2018-07-01] MEDS ORDERED: HYDROmorphone 2 mg/ml ISec IVP PRN (12:16)
[2018-07-01] MEDS ORDERED: HYDROmorphone 0.5 mg/0.5 ml ISec IVP PRN (12:18)
--- NOTE | 2018-07-01 12:46 | RAD ---
Date of service: 07/01/2018 HISTORY: Sepsis Patient COMPARISON: 12/16/2016 FINDINGS: LUNGS: No active pulmonary disease. PLEURA: No significant pleural effusion identified, no pneumothorax apparent. CARDIOVASCULAR: Aortic calcifications Mild cardiomegaly no pulmonary vascular congestion. OSSEOUS STRUCTURES: Severe degenerative changes in both shoulders VISUALIZED UPPER ABDOMEN: Normal. OTHER FINDINGS: None. IMPRESSION: No active disease.
--- NOTE | 2018-07-01 13:38 | CT ---
Date of service: 07/01/2018 PROCEDURE: CT Chest, Abdomen and Pelvis without intravenous contrast HISTORY: r/o pneumonia COMPARISON: None available. TECHNIQUE: Radiation dose: Total exam DLP = 515.8 mGy-cm. This CT exam was performed using one or more of the following dose reduction techniques: Automated exposure control, adjustment of the mA and/or kV according to patient size, and/or use of iterative reconstruction technique. FINDINGS: CT CHEST WITHOUT CONTRAST: LUNGS: Clear. No nodule, mass or consolidation. MEDIASTINUM: There is moderate cardiomegaly. The aorta is calcified and tortuous. There is a large hiatal hernia. There is mural thickening in the herniated stomach consistent with gastritis LYMPH NODES: Unremarkable. PLEURA: Unremarkable. No pneumothorax. No pleural fluid. BONES: Unremarkable. OTHER FINDINGS: None. CT ABDOMEN AND PELVIS: LIVER: Unremarkable. No gross lesion or ductal dilatation. GALLBLADDER AND BILE DUCTS: Multiple gallstones PANCREAS: Unremarkable. No gross lesion or ductal dilatation. SPLEEN: Unremarkable. ADRENALS: Unremarkable. No mass. KIDNEYS AND URETERS: Nonobstructing stone in the right kidney VASCULATURE: Calcified aorta Unremarkable. No aortic aneurysm. BOWEL: There is mural thickening throughout the colon consistent with colitis. Findings are most severe in the sigmoid APPENDIX: Normal appendix. PERITONEUM: Unremarkable. No free fluid. No free air. LYMPH NODES: Unremarkable. No enlarged lymph nodes. BLADDER: Unremarkable. REPRODUCTIVE: Unremarkable. BONES: Severe degenerative changes in both hips OTHER FINDINGS: None. IMPRESSION: There is mural thickening throughout the colon consistent with colitis. Findings are most severe in the sigmoid Large hiatal hernia. Mural thickening in the herniated stomach consistent with gastritis
--- NOTE | 2018-07-01 14:26 | NM ---
Date of service: 07/01/2018 PROCEDURE: Nuclear Medicine Hepatobiliary Scan HISTORY: RUQ pain COMPARISON: July 01, 2018 abdominal ultrasound TECHNIQUE: 5.9 mCi of technetium 99m Mebrofenin was administered intravenously. Planar images of the abdomen were obtained at 5 min intervals to 60 mins. Delayed images were also obtained. FINDINGS: LIVER: Timely and homogenous uptake. COMMON BILE DUCT: identified at 5 mins. GALLBLADDER: identified at 30 mins. SMALL BOWEL: Identified at 15 mins. IMPRESSION: Normal Hepatobiliary Scan. The cystic duct is patent.
--- NOTE | 2018-07-01 14:42 | CP.PCM.CON ---
<Juan Salmon - Last Filed: 07/01/18 14:34> History of Present Illness - History of Present Illness History of Present Illness: General Surgery Consult for Dr. Johnson This is an 83F with a PMH of cerebral palsy, hypertension, and CVA, who presented to the ED due to fever and decrease urine output. She reports right sided abdominal pain. She reports that the pain has been on and off for 3 weeks. Yesterday had diarrhea and a fever.Patient denies any chills, chest pain, shortness of breath, nausea, vomiting, back pain, neck pain, headache, dizzines. PMH: GI bleeding, gastric ulcer, HTN, CVA, cerebral palsy, rheumatoid palsy, developmental dysplasia of the hip PSH: hysterectomy, surgery to correct developmental dysplasia of hip All: sulfa, sulfonamide (rash) Social: no tobacco hx, no alcohol use, no hx of illicit drug use Review of Systems - Review of Systems All systems: reviewed and no additional remarkable complaints except - Gastrointestinal Gastrointestinal: Abdominal Pain Past Patient History - Infectious Disease Hx of Infectious Diseases: None - Tetanus Immunizations Tetanus Immunization: Unknown - Past Social History Smoking Status: Unknown If Ever Smoked - CARDIAC Hx Hypertension: Yes - PULMONARY Hx Respiratory Disorders: No - NEUROLOGICAL HX Cerebrovascular Accident: Yes Other/Comment: cerebral palsy - HEENT Hx HEENT Problems: No - RENAL Hx Chronic Kidney Disease: No - ENDOCRINE/METABOLIC Hx Endocrine Disorders: No - HEMATOLOGICAL/ONCOLOGICAL Hx Blood Disorders: No - INTEGUMENTARY Hx Dermatological Problems: Yes (IASD) - MUSCULOSKELETAL/RHEUMATOLOGICAL Hx Falls: Yes - GASTROINTESTINAL Hx Gastrointestinal Disorders: Yes - GENITOURINARY/GYNECOLOGICAL Hx Genitourinary Disorders: Yes Hx Incontinence: Yes - PSYCHIATRIC Hx Depression: No Hx Emotional Abuse: No Hx Physical Abuse: No - SURGICAL HISTORY Hx Hysterectomy: Yes Other/Comment: CORRECTION OF DEVELOPMENTAL DYSPLASIA OF HIP. - ANESTHESIA Hx Anesthesia: No Meds Allergies/Adverse Reactions: Allergies Allergy/AdvReac Type Severity Reaction Status Date / Time Sulfa (Sulfonamide Allergy RASH Verified 12/16/16 15:39 Antibiotics) - Medications Medications: Current Medications Hydromorphone HCl (Dilaudid) 0.5 mg IVP Q4H PRN PRN Reason: Pain, moderate (4-7) Sodium Chloride (Sodium Chloride 0.9%) 1,000 mls @ 100 mls/hr IV .Q10H [facility] Last Admin: 07/01/18 06:03 Dose: 100 mls/hr Piperacillin Sod/Tazobactam Sod (Zosyn 3.375 In Ns 100ml) 100 mls @ 25 mls/hr IVPB Q8 [facility]; Protocol Stop: 07/10/18 07:16 Pantoprazole Sodium (Protonix Inj) 40 mg IVP DAILY [facility] Physical Exam - Constitutional Appears: Non-toxic, No Acute Distress - Head Exam Head Exam: ATRAUMATIC, NORMOCEPHALIC - Eye Exam Eye Exam: EOMI - ENT Exam ENT Exam: Mucous Membranes Moist - Respiratory Exam Respiratory Exam: NORMAL BREATHING PATTERN - Cardiovascular Exam Cardiovascular Exam: +S1, +S2 - GI/Abdominal Exam GI & Abdominal Exam: Soft. absent: Guarding, Hernia, Rebound, Rigid, Tenderness - Neurological Exam Neurological exam: Alert, Oriented x3 - Psychiatric Exam Psychiatric exam: Normal Affect, Normal Mood - Skin Skin Exam: Dry, Intact Results - Vital Signs Recent Vital Signs: Last Vital Signs Temp 98.9 F 07/01/18 12:00 Pulse 97 H 07/01/18 12:00 Resp 20 07/01/18 12:00 BP 104/54 L 07/01/18 12:00 Pulse Ox 95 07/01/18 06:28 - Labs Result Diagrams: 07/01/18 01:30 07/01/18 01:30 Labs: Laboratory Results - last 24 hr 07/01/18 07/01/18 07/01/18 01:30 01:30 01:30 WBC 28.1 H* RBC 3.72 Hgb 11.4 L Hct 33.6 L MCV 90.3 MCH 30.6 MCHC 33.9 RDW 13.7 Plt Count 267 MPV 10.4 Gran % 88.9 H Lymph % (Auto) 4.5 L Millard % (Auto) 6.5 H Eos % (Auto) 0.1 L Baso % (Auto) 0.0 Gran # 24.94 H Lymph # (Auto) 1.3 Millard # (Auto) 1.8 H Eos # (Auto) 0.0 Baso # (Auto) 0.01 Neutrophils % (Manual) 70 Band Neutrophils % 13 H* Lymphocytes % (Manual) 7 L Atypical Lymphs % 2 H Monocytes % (Manual) 7 H Metamyelocytes % 1 Platelet Evaluation Normal PT 13.9 H INR 1.21 APTT 33.6 pO2 116 H VBG pH 7.48 H VBG pCO2 32.0 L VBG HCO3 23.8 VBG Total CO2 24.8 VBG O2 Sat (Calc) 98.4 H VBG Base Excess 0.9 VBG Potassium 3.5 L Sodium 133.0 Chloride 101.0 Glucose 119 H Lactate 1.4 FiO2 21.0 Potassium Carbon Dioxide Anion Gap BUN Creatinine Est GFR ( Amer) Est GFR (Non-Af Amer) Random Glucose Calcium Phosphorus Magnesium Total Bilirubin AST ALT Alkaline Phosphatase Total Protein Albumin Globulin Albumin/Globulin Ratio Venous Blood Potassium 3.5 L Urine Color Urine Appearance Urine pH Ur Specific [place] Urine Protein Urine Glucose (UA) Urine Ketones Urine Blood Urine Nitrate Urine Bilirubin Urine Urobilinogen Ur Leukocyte Esterase Urine RBC Urine WBC Ur Epithelial Cells Amorphous Sediment Urine Bacteria Stool Occult Blood 07/01/18 07/01/18 07/01/18 01:30 01:58 11:15 WBC RBC Hgb Hct MCV MCH MCHC RDW Plt Count MPV Gran % Lymph % (Auto) Millard % (Auto) Eos % (Auto) Baso % (Auto) Gran # Lymph # (Auto) Millard # (Auto) Eos # (Auto) Baso # (Auto) Neutrophils % (Manual) Band Neutrophils % Lymphocytes % (Manual) Atypical Lymphs % Monocytes % (Manual) Metamyelocytes % Platelet Evaluation PT INR APTT pO2 VBG pH VBG pCO2 VBG HCO3 VBG Total CO2 VBG O2 Sat (Calc) VBG Base Excess VBG Potassium Sodium 135 Chloride 102 Glucose Lactate FiO2 Potassium 3.1 L Carbon Dioxide 24 Anion Gap 12 BUN 33 H Creatinine 0.7 Est GFR ( Amer) > 60 Est GFR (Non-Af Amer) > 60 Random Glucose 110 Calcium 8.6 Phosphorus 2.7 Magnesium 1.7 Total Bilirubin 1.2 AST 44 H ALT 27 Alkaline Phosphatase 65 Total Protein 6.2 Albumin 3.2 Globulin 3.0 Albumin/Globulin Ratio 1.1 Venous Blood Potassium Urine Color Yellow Urine Appearance Clear Urine pH 6.0 Ur Specific [place] 1.025 Urine Protein 30 H Urine Glucose (UA) Negative Urine Ketones Negative Urine Blood Negative Urine Nitrate Negative Urine Bilirubin Negative Urine Urobilinogen 0.2 Ur Leukocyte Esterase Negative Urine RBC 0 - 2 Urine WBC 0 - 2 Ur Epithelial Cells 0 - 2 Amorphous Sediment Few Urine Bacteria Rare Stool Occult Blood Negative Assessment & Plan - Assessment and Plan (Free Text) Assessment: 83F with cholangitis US 14mmCBD no stones visualized MRCP pending GI consulted appreciate recs ABX D/W Dr. 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
[2018-07-01] MEDS ORDERED: MethylPREDNISolone 40 mg Vial IVP ONE (15:30)
--- NOTE | 2018-07-01 15:33 | HP ---
HISTORY OF PRESENT ILLNESS: The patient is 83 years old, last seen by me yesterday in retirement. Patient is a retirement resident. She spiked fever last week and she was complaining of burning urination and increased frequency, so she was found to have Klebsiella UTI. Initially, she was given Cipro but she was found to be resistant, so she was given Vantin for 7 days and yesterday was her 6th day. She spiked fever yesterday morning of 101. There was no note of having nausea, vomiting, diarrhea or any other issues. When I saw the patient in the retirement yesterday, started her on IV fluid and kept on IV antibiotic. Later on, I got a call that patient is not making enough urine and she still has fever, so I advised them to bring her to emergency room for further evaluation. She does not have history of having constipation or diarrhea, however, she was found to have black stools. PAST MEDICAL HISTORY: Significant for: 1. Cerebral palsy. 2. History of GI bleed in the past. 3. History of CVA in the past. 4. Hypertension. 5. Also history of generalized osteoarthritis. 6. Bilateral foot deformity. 7. History of dysphasia. PAST SURGICAL HISTORY: Significant for: 1. Hysterectomy. 2. History of hip surgeries for development of dysplasia. ALLERGIES: SHE IS ALLERGIC TO SULFA, SHE DEVELOPS RASH. FAMILY HISTORY: Significant for father having colon cancer and mother had CVA in older age. SOCIAL HISTORY: Denies smoking, drinking or alcohol use. PHYSICAL EXAMINATION: GENERAL: Patient does not look to be in any distress. VITAL SIGNS: She has temperature of 102.1, pulse 89, respirations 19, blood pressure 99/48. LUNGS: Bilateral fair airflow. No rhonchi or crackles. HEART: S1 and S2 audible. ABDOMEN: Soft, but has right upper quadrant and left lower quadrant discomfort. NEUROLOGICAL: She is awake, alert, able to communicate. EXTREMITIES: Bilateral legs, she has developmental deformities. LABORATORY DATA: WBC 28.1, hemoglobin 11.4, hematocrit 33.6, platelets of 267. PT 13.9. INR 1.21. Chemistry: Sodium 135, potassium 3.1, chloride 102, CO2 of 24, BUN 33, creatinine . Blood sugar of 110. Urine is clear. Abdominal ultrasound shows gallbladder wall edema and cholelithiasis, dilated common bile duct without intrahepatic bile ductal dilatation, portion of the distal common bile duct are not visible, therefore choledocholithiasis is not excluded. ASSESSMENT: 1. Abdominal pain, probably cholecystitis. 2. Leukocytosis. 3. Cerebral palsy. 4. Recent Klebsiella urinary tract infection was treated with p.o. Vantin. 5. History of hypertension. 6. History of gastrointestinal bleeding in the past. PLAN: Patient is going for HIDA scan, MRCP and orders for CT of the chest to rule out underlying pneumonia. We will continue her currently on Apresoline. She was given a dose of Vanquish. She is on IV fluids. I will order for Protonix. I will order for Dilaudid at 0.5 as needed. Followup electrolytes in a.m. Mi Solis MD
[2018-07-01] MEDS ORDERED: Acetylcysteine 20% Inhal Soln (4ml) IH PRN (16:18)
[2018-07-01] MEDS: Albuterol-Ipratrop 3 mg / 0.5 (3 ml) UD IH SCH ×2 (16:40→20:08)
[2018-07-01] MEDS: metroNIDAZOLE IV 500 mg/100 ml 500 MG/100 ML BAG IVPB SCH ×2 (16:40→21:50)
[2018-07-01] MEDS ORDERED: Albuterol-Ipratrop 3 mg / 0.5 (3 ml) UD ONE (16:44)
[2018-07-01] MEDS: Vancomycin 25 MG/ML PO SCH ×2 (18:24→21:50)
--- NOTE | 2018-07-01 19:35 | CON ---
DATE OF CONSULTATION: 07/01/2018 The patient is seen earlier today. CHIEF COMPLAINT: Fever of several days duration. HISTORY OF PRESENT ILLNESS: This is an 83-year-old female with past medical history significant for cerebral palsy, hypertension, cerebrovascular accident, and GI bleed, who [facility], admitted through the emergency room, seen by Dr. Del Cherry, who states the patient was having fevers at the [facility], decreased urine output, was given oral antibiotics for urinary tract infection without improvement. The patient actually is complaining of abdominal pain. She is able to verbalize. Although she takes some time answering questions, she is answering questions. She is awake. She denies any chest pain. She is having lower abdominal and pelvic pain. Denies any nausea, vomiting, diarrhea or constipation. No headaches or blurred vision. PAST MEDICAL HISTORY: Significant for hypertension, cerebral palsy, cerebrovascular accident, GI bleed and dermatologic disorders. PAST SURGICAL HISTORY: Significant for hysterectomy. The patient had appendectomy many years ago and correction of developmental dysplasia of the hip. The patient had a left hip surgery and the patient also has rheumatoid arthritis. MEDICATIONS AT [facility]: Reviewed. ALLERGIES: THE PATIENT IS ALSO ALLERGIC TO SULFONAMIDE. REVIEW OF SYSTEMS: A 12-point review of systems performed. PHYSICAL EXAMINATION: The patient is in bed in no acute distress with a temperature of 102.1, pulse of 95, respiratory rate of 21, and blood pressure is 99/40. The patient's BMI is 23. She is saturating at 97% on nasal cannula. Examination of HEENT is unremarkable. Neck is supple. Lungs have decreased breath sounds. Heart exam is normal S1 and S2. Abdominal examination is soft with tenderness in the right side. No rebound, no guarding, no masses. LABORATORY EXAMINATION: White count of 28,000, hemoglobin of 11, and platelets of 267. Chemistries reveal a BUN of 33 and creatinine of 0.7. Urinalysis is noted. The patient had a chest x-ray, the results are not available. No other information is available other than the emergency room chart. ASSESSMENT AND PLAN: This is an 83-year-[facility] patient with hypertension, cerebral palsy, cerebrovascular accident, rheumatoid arthritis, gastrointestinal bleed with fever of 102, abdominal pain, and white count of 28,000 with 13% bandemia. We will order a CAT scan of the abdomen and pelvis stat and we will start Zosyn. I spoke to Dr. Johnson, who is the surgeon, this morning. He is able to review the patient's case, see the patient, and pending blood culture, urine cultures and gastrointestinal source, will start Zosyn and CT of the abdomen. Dr. Johnson has already ordered an ultrasound of the abdomen and common bile duct and we will make further recommendations. Ziggy Mix MD
[2018-07-01] MEDS: Sodium Chloride 0.9% 1,000 ML IV SCH (20:00)
[2018-07-01] MEDS: MethylPREDNISolone 40 mg Vial IV SCH (21:51)
[2018-07-02] MEDS: Albuterol-Ipratrop 3 mg / 0.5 (3 ml) UD IH SCH ×2 (02:21→07:42)
[2018-07-02] MEDS: metroNIDAZOLE IV 500 mg/100 ml 500 MG/100 ML BAG IVPB SCH (05:55)
[2018-07-02] MEDS: Piperacillin/Tazobact 3.375 gm 100 ML IVPB SCH (05:56)
[2018-07-02 06:50] LABS: ALB/GLOB RATIO 0.9 (1.1-1.8); ALBUMIN 2.6 g/dL (3.0-4.8); ALT/SGPT 25 U/L (7-56); AST/SGOT 22 U/L (14-36); BLOOD UREA NITROGEN 26 mg/dL (7-21); CALCIUM 8.2 mg/dL (8.4-10.5); GFR NON-AFRICAN AMERICAN > 60
[2018-07-02 06:51] LABS: HEMOGLOBIN 12.1 g/dL (12.0-16.0); MEAN CELL VOLUME 91.1 fl (80.0-105.0); MEAN CORPUSCULAR HEMOGLOBIN 30.6 pg (25.0-35.0); MEAN CORPUSCULAR HGB CONC 33.6 g/dl (31.0-37.0); MEAN PLATELET VOLUME 10.8 fl (7.0-11.0); RBC 3.95 10^6/uL (3.5-6.1); RED CELL DISTRIBUTION WIDTH 14.1 % (11.5-14.5)
[2018-07-02 07:11] LABS: WHITE BLOOD COUNT 32.1 10^3/uL (4.5-11.0)
--- NOTE | 2018-07-02 07:29 | RAD ---
Date of service: 07/02/2018 HISTORY: reassess chest congestion COMPARISON: 07/01/2018 FINDINGS: LUNGS: No active pulmonary disease. PLEURA: No significant pleural effusion identified, no pneumothorax apparent. CARDIOVASCULAR: Aortic calcification and tortuosity Mild cardiomegaly mild vascular congestion OSSEOUS STRUCTURES: No significant abnormalities. VISUALIZED UPPER ABDOMEN: Normal. OTHER FINDINGS: None. IMPRESSION: Mild vascular congestion
--- NOTE | 2018-07-02 08:49 | CP.PCM.PN ---
Subjective - Date & Time of Evaluation Date of Evaluation: 07/02/18 Time of Evaluation: 08:45 - Subjective Subjective: Rm Russell, PGY-1, Surgery Progress Note for Dr. Johnson Patient seen and examined at bedside in moderate distress. Patient continues to complain of abdominal pain and thirst. Patient denies nausea and vomiting. Objective - Vital Signs/Intake and Output Vital Signs (last 24 hours): Temp Pulse Resp BP Pulse Ox 97.9 F 75 20 99/47 L 91 L 07/02/18 06:00 07/02/18 06:00 07/02/18 06:00 07/02/18 06:00 07/02/18 06:00 Intake and Output: 07/02/18 07/02/18 06:59 18:59 Intake Total 720 Output Total 150 Balance 570 - Medications Medications: Current Medications Acetaminophen (Tylenol 325mg Tab) 650 mg PO Q6H PRN PRN Reason: Fever >100.4 F Last Admin: 07/01/18 20:15 Dose: 650 mg Acetylcysteine (Acetylcysteine 20%) 4 ml IH [id number] PRN PRN Reason: Shortness of Breath Albuterol/Ipratropium (Duoneb 3 Mg/0.5 Mg (3 Ml) Ud) 3 ml IH [id number] [facility] Last Admin: 07/02/18 07:42 Dose: 3 ml Hydromorphone HCl (Dilaudid) 0.5 mg IVP Q4H PRN PRN Reason: Pain, moderate (4-7) Piperacillin Sod/Tazobactam Sod (Zosyn 3.375 In Ns 100ml) 100 mls @ 25 mls/hr IVPB Q8 [facility]; Protocol Stop: 07/10/18 07:16 Last Admin: 07/02/18 05:56 Dose: 25 mls/hr Metronidazole (Flagyl) 500 mg in 100 mls @ 100 mls/hr IVPB Q8 [facility]; Protocol Last Admin: 07/02/18 05:55 Dose: 100 mls/hr Sodium Chloride (Sodium Chloride 0.9%) 1,000 mls @ 60 mls/hr IV .[id number] [facility] Last Admin: 07/01/18 20:00 Dose: 60 mls/hr Methylprednisolone (Solu-Medrol) 30 mg IV Q12 [facility] Last Admin: 07/01/18 21:51 Dose: 30 mg Ondansetron HCl (Zofran Inj) 4 mg IVP Q6H PRN PRN Reason: Nausea/Vomiting Pantoprazole Sodium (Protonix Inj) 40 mg IVP DAILY [facility] Last Admin: 07/01/18 11:40 Dose: 40 mg Vancomycin HCl (Vancocin 25 Mg/Ml (Oral Use)) 125 mg PO QID [facility]; Protocol Last Admin: 07/01/18 21:50 Dose: 125 mg Zolpidem Tartrate (Ambien) 5 mg PO HS PRN; Protocol PRN Reason: Insomnia - Labs Labs: 07/02/18 06:00 07/02/18 06:00 PT 13.9 SECONDS (9.4-12.5) H 07/01/18 01:30 INR 1.21 07/01/18 01:30 APTT 33.6 Seconds (25.1-36.5) 07/01/18 01:30 - Constitutional Appears: Toxic, In Acute Distress, Agitated, Other (contracted) - Head Exam Head Exam: ATRAUMATIC, NORMAL INSPECTION, NORMOCEPHALIC - Eye Exam Eye Exam: EOMI Pupil Exam: PERRL - ENT Exam ENT Exam: Mucous Membranes Dry - Respiratory Exam Respiratory Exam: Clear to Ausculation Bilateral - Cardiovascular Exam Cardiovascular Exam: REGULAR RHYTHM - GI/Abdominal Exam GI & Abdominal Exam: Firm, Tenderness - Extremities Exam Additional comments: Patient has mutiple nodules on bilateral upper extremity PIPs and wrists. - Neurological Exam Neurological Exam: Alert, Awake, CN II-XII Intact Assessment and Plan - Assessment and Plan (Free Text) Assessment: 83 year old female with past medical history of GI bleeding, gastric ulcer, HTN, CVA, cerebral palsy, rheumatoid palsy, developmental dysplasia of the hip presents with diffuse abdominal pain. Plan: Follow up C. Difficile stool toxin and stool cultures. Contact precautions Continue with flagyl, vancomycin, and zosyn Follow up MRCP. Pain control with dilaudid. Follow up GI recommendations for possible colonoscopy. DVT prophylaxis with SCD and GI prophylaxis with protonix Replete electrolytes as needed Will discuss case with Dr. Johnson.
[2018-07-02] MEDS ORDERED: Sodium Chloride 0.9% 1,000 ML IV SCH (09:30)
--- NOTE | 2018-07-02 09:37 | CP.PCM.PN ---
Subjective - Date & Time of Evaluation Date of Evaluation: 07/02/18 Time of Evaluation: 09:28 - Subjective Subjective: House Doctor Note - German Allen PGY - 2 I was called on this patient for rapid heart rate. I came to evaluate patient, she denied any symptoms including chest pain or shortness of breath, dizziness, loss of vision, or back pain. She did state that she was hungry. Upon exam, patient was found to be developmentally delayed but able to answer questions and communicate effectively, patient was warm to the touch but not diaphoretic. Patient had mild course breath sounds bilaterally, and heart was tachycardic with regular rhythm. No bilateral edema. Plan Stat EKG was obtained, tropes were obtained, cardiology consult was obtained, Dr. Mcdaniel. I also gave the patient a liter bolus and cardizem 5 ivp. Heparin drip was not initiated at this time due to history of GI Bleed. Cardiology input will be appreciated on this matter. Objective - Vital Signs/Intake and Output Vital Signs (last 24 hours): Temp Pulse Resp BP Pulse Ox 97.9 F 75 20 99/47 L 91 L 07/02/18 06:00 07/02/18 06:00 07/02/18 06:00 07/02/18 06:00 07/02/18 06:00 Intake and Output: 07/02/18 07/02/18 06:59 18:59 Intake Total 720 Output Total 150 Balance 570 - Medications Medications: Current Medications Acetaminophen (Tylenol 325mg Tab) 650 mg PO Q6H PRN PRN Reason: Fever >100.4 F Last Admin: 07/01/18 20:15 Dose: 650 mg Acetylcysteine (Acetylcysteine 20%) 4 ml IH [id number] PRN PRN Reason: Shortness of Breath Albuterol/Ipratropium (Duoneb 3 Mg/0.5 Mg (3 Ml) Ud) 3 ml IH [id number] [facility] Last Admin: 07/02/18 07:42 Dose: 3 ml Hydromorphone HCl (Dilaudid) 0.5 mg IVP Q4H PRN PRN Reason: Pain, moderate (4-7) Piperacillin Sod/Tazobactam Sod (Zosyn 3.375 In Ns 100ml) 100 mls @ 25 mls/hr IVPB Q8 [facility]; Protocol Stop: 07/10/18 07:16 Last Admin: 07/02/18 05:56 Dose: 25 mls/hr Metronidazole (Flagyl) 500 mg in 100 mls @ 100 mls/hr IVPB Q8 [facility]; Protocol Last Admin: 07/02/18 05:55 Dose: 100 mls/hr Sodium Chloride (Sodium Chloride 0.9%) 1,000 mls @ 60 mls/hr IV .[id number] [facility] Last Admin: 07/01/18 20:00 Dose: 60 mls/hr Potassium Chloride (Potassium Chloride 10 Meq/100 Ml) 10 meq in 100 mls @ 50 mls/hr IVPB Q2H [facility] Stop: 07/02/18 13:29 Sodium Chloride (Sodium Chloride 0.9%) 1,000 mls @ 999 mls/hr IV .Q1H1M [facility] Methylprednisolone (Solu-Medrol) 30 mg IV Q12 [facility] Last Admin: 07/01/18 21:51 Dose: 30 mg Ondansetron HCl (Zofran Inj) 4 mg IVP Q6H PRN PRN Reason: Nausea/Vomiting Pantoprazole Sodium (Protonix Inj) 40 mg IVP DAILY [facility] Last Admin: 07/01/18 11:40 Dose: 40 mg Vancomycin HCl (Vancocin 25 Mg/Ml (Oral Use)) 125 mg PO QID [facility]; Protocol Last Admin: 07/01/18 21:50 Dose: 125 mg Zolpidem Tartrate (Ambien) 5 mg PO HS PRN; Protocol PRN Reason: Insomnia - Labs Labs: 07/02/18 06:00 07/02/18 06:00 PT 13.9 SECONDS (9.4-12.5) H 07/01/18 01:30 INR 1.21 07/01/18 01:30 APTT 33.6 Seconds (25.1-36.5) 07/01/18 01:30
[2018-07-02] MEDS: MethylPREDNISolone 40 mg Vial IV SCH ×3 (09:54→22:04)
[2018-07-02] MEDS ORDERED: Digoxin 500 mcg/2ml (0.5 mg/2ml) Inj IVP ONE ×2 (10:05→14:00)
[2018-07-02] MEDS: Vancomycin 25 MG/ML PO SCH ×4 (10:06→21:12)
--- NOTE | 2018-07-02 10:29 | CP.PCM.PCO ---
Physician Communication Note - Physician Communication Note Physician Communication Note: Dx:Colitis/AMI/Prob CD Stone-Cons Rx for now
--- NOTE | 2018-07-02 10:30 | CP.PCM.CON ---
History of Present Illness - History of Present Illness History of Present Illness: Awake, alert, kept NPO, mild shortness of breath Reason for consultation:Cardiac evaluation of rapid atrial fibrillation (new onset) Brief history of present illness: An 83 year old female who was transferred from [facility] to the ER. she was being treated in the [facility] for UTI ( Klebsiella in urine) started with Cipro but resistant and changed to Vantin. A day prior to admission patient spiked temperature and so was brought to [facility] for further work up. History of cerebral palsy,hypertension,CVA and GI bleeding/gastric ulcer.Today, she had an episode of rapid atrial fibrillation 160's(new onset) and Cardiology consult was called to evaluate. Seen and examined by me and Dr. Mcdaniel Review of Systems - Review of Systems All systems: reviewed and no additional remarkable complaints except Review of Systems: as per HPI Past Patient History - Infectious Disease Hx of Infectious Diseases: None - Tetanus Immunizations Tetanus Immunization: Unknown - Past Social History Smoking Status: Unknown If Ever Smoked - CARDIAC Hx Hypertension: Yes - PULMONARY Hx Respiratory Disorders: No - NEUROLOGICAL HX Cerebrovascular Accident: Yes Other/Comment: cerebral palsy - HEENT Hx HEENT Problems: No - RENAL Hx Chronic Kidney Disease: No - ENDOCRINE/METABOLIC Hx Endocrine Disorders: No - HEMATOLOGICAL/ONCOLOGICAL Hx Blood Disorders: No - INTEGUMENTARY Hx Dermatological Problems: Yes (IASD) - MUSCULOSKELETAL/RHEUMATOLOGICAL Hx Falls: Yes - GASTROINTESTINAL Hx Gastrointestinal Disorders: Yes - GENITOURINARY/GYNECOLOGICAL Hx Genitourinary Disorders: Yes Hx Incontinence: Yes - PSYCHIATRIC Hx Depression: No Hx Emotional Abuse: No Hx Physical Abuse: No - SURGICAL HISTORY Hx Hysterectomy: Yes Other/Comment: CORRECTION OF DEVELOPMENTAL DYSPLASIA OF HIP. - ANESTHESIA Hx Anesthesia: No Meds Allergies/Adverse Reactions: Allergies Allergy/AdvReac Type Severity Reaction Status Date / Time Sulfa (Sulfonamide Allergy RASH Verified 12/16/16 15:39 Antibiotics) - Medications Medications: Current Medications Acetaminophen (Tylenol 325mg Tab) 650 mg PO Q6H PRN PRN Reason: Fever >100.4 F Last Admin: 07/01/18 20:15 Dose: 650 mg Acetylcysteine (Acetylcysteine 20%) 4 ml IH [id number] PRN PRN Reason: Shortness of Breath Albuterol/Ipratropium (Duoneb 3 Mg/0.5 Mg (3 Ml) Ud) 3 ml IH [id number] [facility] Last Admin: 07/02/18 07:42 Dose: 3 ml Digoxin (Lanoxin) 0.25 mg IVP ONCE ONE Stop: 07/02/18 14:01 Hydromorphone HCl (Dilaudid) 0.5 mg IVP Q4H PRN PRN Reason: Pain, moderate (4-7) Piperacillin Sod/Tazobactam Sod (Zosyn 3.375 In Ns 100ml) 100 mls @ 25 mls/hr IVPB Q8 [facility]; Protocol Stop: 07/10/18 07:16 Last Admin: 07/02/18 05:56 Dose: 25 mls/hr Metronidazole (Flagyl) 500 mg in 100 mls @ 100 mls/hr IVPB Q8 [facility]; Protocol Last Admin: 07/02/18 05:55 Dose: 100 mls/hr Sodium Chloride (Sodium Chloride 0.9%) 1,000 mls @ 60 mls/hr IV .[id number] [facility] Last Admin: 07/01/18 20:00 Dose: 60 mls/hr Potassium Chloride (Potassium Chloride 10 Meq/100 Ml) 10 meq in 100 mls @ 50 mls/hr IVPB Q2H [facility] Stop: 07/02/18 13:29 Last Admin: 07/02/18 09:55 Dose: 50 mls/hr Sodium Chloride (Sodium Chloride 0.9%) 1,000 mls @ 999 mls/hr IV .Q1H1M [facility] Last Admin: 07/02/18 09:40 Dose: 999 mls/hr Methylprednisolone (Solu-Medrol) 30 mg IV Q12 [facility] Last Admin: 07/02/18 09:54 Dose: 30 mg Ondansetron HCl (Zofran Inj) 4 mg IVP Q6H PRN PRN Reason: Nausea/Vomiting Pantoprazole Sodium (Protonix Inj) 40 mg IVP DAILY [facility] Last Admin: 07/02/18 09:53 Dose: 40 mg Vancomycin HCl (Vancocin 25 Mg/Ml (Oral Use)) 125 mg PO QID [facility]; Protocol Last Admin: 07/02/18 10:06 Dose: 125 mg Verapamil HCl (Verapamil Inj) 2.5 mg IVP Q6H PRN PRN Reason: for heart rate >130 Zolpidem Tartrate (Ambien) 5 mg PO HS PRN; Protocol PRN Reason: Insomnia Physical Exam - Constitutional Appears: Non-toxic Additional comments: mild respiratory distress - Head Exam Head Exam: NORMAL INSPECTION, NORMOCEPHALIC - ENT Exam ENT Exam: Mucous Membranes Dry - Respiratory Exam Respiratory Exam: Decreased Breath Sounds, Rhonchi Additional comments: mild shortness of breath, on nasal cannula - Cardiovascular Exam Cardiovascular Exam: +S1, +S2 Additional comments: Telemetry Atrial fibrillation 120's-130's - GI/Abdominal Exam GI & Abdominal Exam: Normal Bowel Sounds, Soft - Exam Additional comments: rutledge catheter - Neurological Exam Neurological exam: Alert, Oriented x3 - Psychiatric Exam Psychiatric exam: Normal Affect, Normal Mood - Skin Skin Exam: Dry, Normal Color, Warm Results - Vital Signs Recent Vital Signs: Last Vital Signs Temp 97.9 F 07/02/18 06:00 Pulse 168 H 07/02/18 09:34 Resp 20 07/02/18 06:00 BP 109/78 07/02/18 09:34 Pulse Ox 91 L 07/02/18 06:00 - Labs Result Diagrams: 07/02/18 06:00 07/02/18 06:00 Labs: Laboratory Results - last 24 hr 07/01/18 07/02/18 07/02/18 11:15 06:00 06:00 WBC 32.1 H* RBC 3.95 Hgb 12.1 Hct 36.0 MCV 91.1 MCH 30.6 MCHC 33.6 RDW 14.1 Plt Count 324 MPV 10.8 Sodium 141 Potassium 3.0 L Chloride 113 H Carbon Dioxide 20 L Anion Gap 12 BUN 26 H Creatinine 0.6 L Est GFR ( Amer) > 60 Est GFR (Non-Af Amer) > 60 Random Glucose 147 H Calcium 8.2 L Magnesium 2.1 Total Bilirubin 0.7 AST 22 ALT 25 Alkaline Phosphatase 74 Troponin I Total Protein 5.5 L Albumin 2.6 L Globulin 2.8 Albumin/Globulin Ratio 0.9 L Stool Occult Blood Negative 07/02/18 06:30 WBC RBC Hgb Hct MCV MCH MCHC RDW Plt Count MPV Sodium Potassium Chloride Carbon Dioxide Anion Gap BUN Creatinine Est GFR ( Amer) Est GFR (Non-Af Amer) Random Glucose Calcium Magnesium Total Bilirubin AST ALT Alkaline Phosphatase Troponin I 0.45 H* D Total Protein Albumin Globulin Albumin/Globulin Ratio Stool Occult Blood Assessment & Plan - Assessment and Plan (Free Text) Assessment: Brief history of present illness: An 83 year old female who was transferred from [facility] to the ER. she was being treated in the [facility] for UTI ( Klebsiella in urine) started with Cipro but resstant and changed to Vantin. A day prior to admission patient spiked temperature and so was brought to [facility] for further work up. 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 Today, she had an episode of rapid atrial fibrillation (new onset) and Cardiology consult was called. Cardizem IV was given. Digoxin 0.25 mg given and another dose at 2 pm.Heart rate went down to 120-130's. For Echo to evaluate LV function. EKG yesterday NSR with APC's, no ischemia. Troponin positive, 0.45 today , Will order serial troponin level. No previous cardiac work up done at [facility]. Plan: Awake, mild respiratory distress Nebulizer treatment Will change Albuterol to Xopenex to prevent further fast heart rate Telemetry slower rate at 120's,still on Atrial fibrillation Cardizem 5 mg IV given Digoxin 0.25 mg Given and another dose at 2 pm Replenish potassium, K-3.0 Troponin 0.45, will order serial troponin level Denies chest pain now No anticoagulation for now due to history of GI bleeding GI on consult, work up in progress ECHO to evaluate LV function Continue current treatment Continue current medications Chart reviewed DNR/DNI Will follow up Further recommendations during hospital course Plan and treatment discussed with Dr. Mcdaniel Thank you Dr. Solis for the opportunity of taking care of Ms. Yessenia Faustin - Date & Time Date: 07/02/18 Time: 10:50
--- NOTE | 2018-07-02 10:44 | CP.PCM.PN ---
<Khari Wiley - Last Filed: 07/02/18 10:46> Subjective - Date & Time of Evaluation Date of Evaluation: 07/02/18 Time of Evaluation: 10:38 - Subjective Subjective: PGY-2 GI progress note for Dr Grey Patient will elevated HR into 160s early this morning - EKG showed AFib with RVR and toponins elevated - cardio consulted. Today patient appeared uncomfortable with labored breathing. Abdomen was distended. Was on clear liquid diet which will be changed to npo except meds. Objective - Vital Signs/Intake and Output Vital Signs (last 24 hours): Temp Pulse Resp BP Pulse Ox 97.9 F 168 H 20 109/78 91 L 07/02/18 06:00 07/02/18 09:34 07/02/18 06:00 07/02/18 09:34 07/02/18 06:00 Intake and Output: 07/02/18 07/02/18 06:59 18:59 Intake Total 720 Output Total 150 Balance 570 - Medications Medications: Current Medications Acetaminophen (Tylenol 325mg Tab) 650 mg PO Q6H PRN PRN Reason: Fever >100.4 F Last Admin: 07/01/18 20:15 Dose: 650 mg Acetylcysteine (Acetylcysteine 20%) 4 ml IH [id number] PRN PRN Reason: Shortness of Breath Albuterol/Ipratropium (Duoneb 3 Mg/0.5 Mg (3 Ml) Ud) 3 ml IH [id number] [facility] Last Admin: 07/02/18 07:42 Dose: 3 ml Digoxin (Lanoxin) 0.25 mg IVP ONCE ONE Stop: 07/02/18 14:01 Hydromorphone HCl (Dilaudid) 0.5 mg IVP Q4H PRN PRN Reason: Pain, moderate (4-7) Piperacillin Sod/Tazobactam Sod (Zosyn 3.375 In Ns 100ml) 100 mls @ 25 mls/hr IVPB Q8 [facility]; Protocol Stop: 07/10/18 07:16 Last Admin: 07/02/18 05:56 Dose: 25 mls/hr Metronidazole (Flagyl) 500 mg in 100 mls @ 100 mls/hr IVPB Q8 [facility]; Protocol Last Admin: 07/02/18 05:55 Dose: 100 mls/hr Sodium Chloride (Sodium Chloride 0.9%) 1,000 mls @ 60 mls/hr IV .[id number] [facility] Last Admin: 07/01/18 20:00 Dose: 60 mls/hr Potassium Chloride (Potassium Chloride 10 Meq/100 Ml) 10 meq in 100 mls @ 50 mls/hr IVPB Q2H [facility] Stop: 07/02/18 13:29 Last Admin: 07/02/18 09:55 Dose: 50 mls/hr Sodium Chloride (Sodium Chloride 0.9%) 1,000 mls @ 999 mls/hr IV .Q1H1M [facility] Last Admin: 07/02/18 09:40 Dose: 999 mls/hr Methylprednisolone (Solu-Medrol) 30 mg IV Q12 [facility] Last Admin: 07/02/18 09:54 Dose: 30 mg Ondansetron HCl (Zofran Inj) 4 mg IVP Q6H PRN PRN Reason: Nausea/Vomiting Pantoprazole Sodium (Protonix Inj) 40 mg IVP DAILY [facility] Last Admin: 07/02/18 09:53 Dose: 40 mg Vancomycin HCl (Vancocin 25 Mg/Ml (Oral Use)) 125 mg PO QID [facility]; Protocol Last Admin: 07/02/18 10:06 Dose: 125 mg Verapamil HCl (Verapamil Inj) 2.5 mg IVP Q6H PRN PRN Reason: for heart rate >130 Zolpidem Tartrate (Ambien) 5 mg PO HS PRN; Protocol PRN Reason: Insomnia - Labs Labs: 07/02/18 06:00 07/02/18 06:00 PT 13.9 SECONDS (9.4-12.5) H 07/01/18 01:30 INR 1.21 07/01/18 01:30 APTT 33.6 Seconds (25.1-36.5) 07/01/18 01:30 - Additional Findings Additional findings: - Constitutional Appears: Well, Non-toxic, No Acute Distress - Head Exam Head Exam: ATRAUMATIC, NORMAL INSPECTION - Eye Exam Eye Exam: EOMI, Normal appearance, PERRL. absent: Scleral icterus - ENT Exam ENT Exam: Mucous Membranes Moist - Respiratory Exam Respiratory Exam: Rhonchi. absent: Clear to Auscultation Bilateral, Rales, Wheezes - Cardiovascular Exam Cardiovascular Exam: Tachy, IRREGULAR RHYTHM, +S1, +S2, Systolic Murmur - GI/Abdominal Exam GI & Abdominal Exam: Normal Bowel Sounds, Soft, Tenderness. absent: Distended, Firm, Guarding, Hernia - Rectal Exam Additional comments: rectal performed by ED physician showed occult blood - Extremities Exam Additional comments: Positive for contractures. Stigmata of cerebral palsy. rheumatoid palsy of hands/wrists - Neurological Exam Neurological exam: Alert, CN II-XII Intact, Oriented x3 - Skin Skin Exam: Normal Color, Warm Assessment and Plan - Assessment and Plan (Free Text) Plan: Mrs Faustni is a 83 year old totally dependent female, who's past medical history includes GI bleed, cerebral palsy, hypertension, and CVA, presents to the emergency department from assisted for evaluation of fever and decrease urine output: Colitis -most prominent in right upper quadrant, also with fever and leukocytosis and hypotension -abdominal ultrasound 07/01 * gallstones, collapsed gallbladder, gallbladder wall edema, no sonographic flanagan's sign or pericholecystic fluid, common bile duct measures 14mm with no stones -CT abd/pelvis po contrast 07/01 * mural thickening throughout colon consistent with colitis most severe in sigmoid, large hiatal hernia, mural thickening in herniated stomach consistent with gastritis -biliary hida scan 07/01 * normal -ID on board, started zosyn 3.375g ivp q8h 07/01 -on metronidazole iv 500mg q8h -f/u stool cx, cdiff toxin and antigen -f/u MRCP w/wo contrast to r/o common bile duct stone -keep npo except meds for now -blood and urine cx negative up to date -Dr Grey to discuss with primary regarding need for solumedrol GI Bleed -self reported hx of diarrhea that was black in color (however takes iron tablets at assisted) -FOBT negative -hgb 11.4 on admission with normal mcv -has a hx of esophageal ulcers as a bleeding source as confirmed by EGD in 11/2016 Previous GI procedures: -EGD 11/2016 showed grade c esophageal ulcerations and a 5cm hiatal hernia (report not available in [facility]) Seen and discussed with Dr Grey <Erika Grey V - Last Filed: 07/03/18 00:02> Objective - Vital Signs/Intake and Output Vital Signs (last 24 hours): Temp Pulse Resp BP Pulse Ox 98.1 F 84 19 124/66 91 L 07/02/18 18:00 07/02/18 18:00 07/02/18 18:00 07/02/18 18:00 07/02/18 06:00 Intake and Output: 07/02/18 07/03/18 18:59 06:59 Intake Total 2635 Balance 2635 - Medications Medications: Current Medications Acetaminophen (Tylenol 325mg Tab) 650 mg PO Q6H PRN PRN Reason: Fever >100.4 F Last Admin: 07/02/18 13:45 Dose: 650 mg Hydromorphone HCl (Dilaudid) 0.5 mg IVP Q4H PRN PRN Reason: Pain, moderate (4-7) Sodium Chloride (Sodium Chloride 0.9%) 1,000 mls @ 60 mls/hr IV .[id number] [facility] Last Admin: 07/02/18 11:51 Dose: Not Given Levalbuterol HCl (Xopenex) 1.25 mg IH TIDRESP [facility] Last Admin: 07/02/18 20:46 Dose: 1.25 mg Methylprednisolone (Solu-Medrol) 20 mg IV Q12 [facility] Last Admin: 07/02/18 22:04 Dose: 20 mg Metoprolol Succinate (Toprol Xl) 25 mg PO BRK [facility] Last Admin: 07/02/18 13:45 Dose: 25 mg Ondansetron HCl (Zofran Inj) 4 mg IVP Q6H PRN PRN Reason: Nausea/Vomiting Pantoprazole Sodium (Protonix Inj) 40 mg IVP DAILY [facility] Last Admin: 07/02/18 09:53 Dose: 40 mg Vancomycin HCl (Vancocin 25 Mg/Ml (Oral Use)) 250 mg PO QID [facility]; Protocol Last Admin: 07/02/18 21:12 Dose: 250 mg Verapamil HCl (Verapamil Inj) 2.5 mg IVP Q6H PRN PRN Reason: for heart rate >130 Zolpidem Tartrate (Ambien) 5 mg PO HS PRN; Protocol PRN Reason: Insomnia Last Admin: 07/02/18 22:20 Dose: 5 mg - Labs Labs: 07/02/18 06:00 07/02/18 06:00 PT 13.9 SECONDS (9.4-12.5) H 10/31/18 01:30 INR 1.21 07/01/18 01:30 APTT 33.6 Seconds (25.1-36.5) 07/01/18 01:30 Attending/Attestation - Attestation I have personally seen and examined this patient.: Yes I have fully participated in the care of the patient.: Yes I have reviewed all pertinent clinical information, including history, physical exam and plan: Yes
[2018-07-02] MEDS ORDERED: Sodium Chloride 0.9% 1,000 ML IV STA (11:32)
[2018-07-02] MEDS: Sodium Chloride 0.9% 1,000 ML IV SCH (11:51)
--- NOTE | 2018-07-02 12:43 | PN ---
DATE: 07/02/2018 SUBJECTIVE: The patient is 83 years old, seen and examined, was found to be in AFib earlier this morning. Was given Cardizem and slowed down the heart rate. The patient denies any nausea or vomiting. Abdominal pain seems to be a little better. PHYSICAL EXAMINATION: VITAL SIGNS: She is afebrile, pulse 75, respirations 20, blood pressure 109/78. LUNGS: Bilateral fair airflow. No rhonchi or crackle. HEART: S1 and S2 audible. ABDOMEN: Soft. Slight epigastric discomfort. NEUROLOGICAL: The patient is awake, alert, able to communicate. She has dysphasia. LABORATORY EXAM: WBC 32.1, hemoglobin 12.1, hematocrit 36, platelet 324. Chemistry: Sodium 141, potassium 3, chloride 113, CO2 of 20, BUN 26, creatinine 0.6, blood sugar of 147, troponin 0.45. Blood cultures are negative. Stool is pending. ASSESSMENT: 1. New onset of atrial fibrillation. 2. Demand ischemia versus [id number] myocardial infarction. 3. Cholelithiasis. 4. Probably, Clostridium difficile colitis. 5. History of hypertension. PLAN: Currently, the patient is on IV fluids. She is on liquid diet. I will cut down her steroids. Continue her on p.o. vancomycin. Start her on low-dose beta blockers. CT of the abdomen is pending. Follow up CBC and CMP in the a.m. Mi Solis MD
[2018-07-02] MEDS: Levalbuterol 1.25 MG/3 ML Inhal Soln UD IH SCH ×2 (13:20→20:46)
[2018-07-02] MEDS: Metoprolol Succinate 25 mg XL Tab PO SCH (13:45)
[2018-07-02 14:04] VITALS: PULSE 123
--- NOTE | 2018-07-02 14:37 | PN ---
DATE: 07/02/2018 SUBJECTIVE: Seen earlier today in 271, [address] Solis present at the bedside. The patient is not toxic. The nursing staff states that she has been having severe diarrhea all night. Fevers has improved and her abdominal discomfort is also improved. PHYSICAL EXAMINATION: VITAL SIGNS: On exam, temperature is 98, blood pressure is 99/40 and respiratory rate of 20, heart rate of 91. HEENT: Examination of HEENT is unremarkable. NECK: Supple. LUNGS: Have decreased breath sounds. HEART: Normal S1, S2. ABDOMEN: Soft, nontender and no rebound or guarding. LABORATORY DATA: Laboratory examination reveals the patient's white count of 32,000. The patient did have 13% bandemia. Chemistries reveals BUN of 26, creatinine of 0.45. Urinalysis is noted and stool for occult blood is negative. Blood cultures are no growth. Urine cultures no growth. Review of orders reveals the stool for C. Diff antigen is requested as of yesterday. We will request another one today and then start the patient empirically on p.o. vancomycin 250 every 8 hours, has discussed with nursing staff and just one dose she gave her.. We will discontinue the Zosyn and send the stool for C. Diff. The patient had a CAT scan of the abdomen and chest which shows severe colitis and CAT scan of the chest is negative for any infiltrates. The patient does have multiple gallstones and there is mural thickening consistent with gastritis. ASSESSMENT AND PLAN: An 83-year-old female, custodial patient with hypertension, cerebral palsy, cerebrovascular accident, rheumatoid arthritis, gastrointestinal bleed, diarrhea and 13% bandemia, now with sepsis. Must rule out pseudomembranous colitis, sepsis secondary to colitis. We will discontinue Zosyn, treat the patient with p.o. vancomycin 250 every 6 hours. Discontinue Flagyl and case discussed with Dr. Solis this morning. We will follow closely with you. Ziggy Mix MD
--- NOTE | 2018-07-02 16:46 | CARD ---
APPROVED REPORT Date of service: 07/02/2018 EXAM: Two-dimensional and M-mode echocardiogram with Doppler and color Doppler. INDICATION CP/LVFX 2D DIMENSIONS Left Atrium (2D)4.0 (1.6-4.0cm)IVSd0.9 (0.7-1.1cm) LVDd3.7 (3.9-5.9cm)PWd1.0 (0.7-1.1cm) LVDs2.5 (2.5-4.0cm)FS (%) 33.1 % LVEF (%)62.5 (>50%) M-Mode DIMENSIONS Aortic Root3.10 (2.2-3.7cm)Aortic Cusp Exc.1.40 (1.5-2.0cm) Aortic Valve AoV Peak Qdwduton496.0cm/[place] Peak GR.10mmHg Mitral Valve E/A ratio0.0 TDI E/Lateral E'0.0E/Medial E'0.0 Pulmonary Valve PV Peak Reojvzvo01.1cm/sPV Peak Grad.2mmHg Tricuspid Valve TR Peak [id number] [id number] Peak Gr.36mmHg [id number] LEFT VENTRICLE The left ventricle is normal size. There is normal left ventricular wall thickness. Proximal septal thickening is noted. The left ventricular function is normal.EF-60-65% There is normal LV segmental wall motion. Could not be assessd, as pt was in A fib at thsat time. No left ventricle thrombus noted on this study. There is no ventricular septal defect visualized. There is no left ventricular aneurysm. There is no mass noted in the left ventricle. RIGHT VENTRICLE The right ventricle is normal size. There is normal right ventricular wall thickness. The right ventricular systolic function is normal. ATRIA The left atrium is borderline dilated. The right atrium size is normal. The interatrial septum is intact with no evidence for an atrial septal defect. AORTIC VALVE The aortic valve is calcified but opens well. The aortic valve is moderately sclerotic. There is trace aortic regurgitation. There is no aortic valvular stenosis. There is no aortic valvular vegetation. MITRAL VALVE The mitral valve is thickened but opens well. Mitral annular calcification is moderate. Mitral regurgitation is mild to moderate. There is no mitral valve stenosis. There is no evidence of mitral valve prolapse. TRICUSPID VALVE The tricuspid valve is normal in structure. There is mild to moderate tricuspid regurgitation.RVSP-46 mmof Hg. There is mild pulmonary hypertension. There is no tricuspid valve stenosis. There is no tricuspid valve prolapse or vegetation. PULMONIC VALVE The pulmonary valve is normal in structure. Trivial PI. There is no pulmonic valvular stenosis. GREAT VESSELS The aortic root is normal in size. The ascending aorta is normal in size. The pulmonary artery is normal. The IVC is normal in size and collapses >50% with inspiration. PERICARDIAL EFFUSION There is no pleural effusion. There is no pericardial effusion. <Conclusion> The left ventricle is normal size. There is normal left ventricular wall thickness. Proximal septal thickening is noted. The left ventricular function is normal.EF-60-65% There is trace aortic regurgitation. Mitral regurgitation is mild to moderate. There is mild to moderate tricuspid regurgitation.RVSP-46 mmof Hg. There is mild pulmonary hypertension. The IVC is normal in size and collapses >50% with inspiration. There is no pericardial effusion. No vegetation or thrombus noted.
--- NOTE | 2018-07-02 18:49 | CARD ---
APPROVED REPORT Date of service: 07/02/2018 EKG Measurement Heart [id number] <Conclusion> Atrial fibrillation with rapid ventricular response Left anterior fascicular block Nonspecific ST abnormality, probably digitalis effect Abnormal ECG
[2018-07-02 22:53] LABS: TROPONIN I 0.44 ng/mL
--- NOTE | 2018-07-03 02:37 | CON ---
DATE: 07/02/2018 CONSULT SERVICE: Cardiology. REASON FOR CONSULTATION AND FOLLOWUP: Cardiac evaluation, AFib with rapid ventricular rate, admitted with abdominal pian. This note is in addition to dictated by nurse practitioner. HISTORY OF PRESENT ILLNESS: In summary, an 83-year-old female from the senior living, transferred because of abdominal pain, possibly UTI Klebsiella, on Cipro, resistant to Vantin, was n.p.o. This morning, found to be in AFib with rapid ventricular rate. PAST MEDICAL HISTORY: Significant for cerebral palsy, hypertension, CVA and GI bleeding. Heart rate was 160. Cardiology consult was called. Repeat troponin went from 0.11 to 4. RECOMMENDATION: We will get a stat echo. We will follow up serial CPK, troponin. We will give a dose of dig IV since the patient is n.p.o. patient n.p.o. and abdominal pain, we will avoid anticoagulation. Once the patient starts p.o., we will start p.o. beta anneliese. In the interim, continue dig and we will give verapamil 2.5 every 6 p.r.n. We will get echo to assess LV function. Thank you Dr. Atkinson for the opportunity in taking care of the patient Ramin Casas. Overall, the patient's condition is critical. Long-term prognosis is guarded. Coded status DNR. Continue supportive care. Ren Mcdaniel MD
[2018-07-03] MEDS: Sodium Chloride 0.9% 1,000 ML IV SCH (03:56)
[2018-07-03 07:11] LABS: HEMOGLOBIN 12.3 g/dL (12.0-16.0); MEAN CELL VOLUME 90.5 fl (80.0-105.0); MEAN CORPUSCULAR HGB CONC 33.2 g/dl (31.0-37.0); RBC 4.1 10^6/uL (3.5-6.1); RED CELL DISTRIBUTION WIDTH 14.4 % (11.5-14.5)
[2018-07-03 07:22] LABS: ALB/GLOB RATIO 0.9 (1.1-1.8); ALBUMIN 2.3 g/dL (3.0-4.8); ALT/SGPT 23 U/L (7-56); AST/SGOT 22 U/L (14-36); BLOOD UREA NITROGEN 27 mg/dL (7-21); CALCIUM 8.2 mg/dL (8.4-10.5); GFR NON-AFRICAN AMERICAN > 60
[2018-07-03 07:29] LABS: WHITE BLOOD COUNT 34.2 10^3/uL (4.5-11.0)
[2018-07-03] MEDS: Levalbuterol 1.25 MG/3 ML Inhal Soln UD IH SCH ×3 (07:31→20:01)
--- NOTE | 2018-07-03 08:20 | CP.PCM.PN ---
Subjective - Date & Time of Evaluation Date of Evaluation: 07/03/18 Time of Evaluation: 06:45 - Subjective Subjective: Patient seen and examined. No acute events overnight. Still complaining of abdominal pain. Leukocytosis trending up. Objective - Vital Signs/Intake and Output Vital Signs (last 24 hours): Temp Pulse Resp BP Pulse Ox 98.3 F 84 19 131/68 96 07/03/18 05:52 07/03/18 05:52 07/03/18 05:52 07/03/18 05:52 07/03/18 05:52 Intake and Output: 07/03/18 07/03/18 06:59 18:59 Intake Total 3415 Output Total 200 Balance 3215 - Medications Medications: Current Medications Acetaminophen (Tylenol 325mg Tab) 650 mg PO Q6H PRN PRN Reason: Fever >100.4 F Last Admin: 07/03/18 03:56 Dose: 650 mg Hydromorphone HCl (Dilaudid) 0.5 mg IVP Q4H PRN PRN Reason: Pain, moderate (4-7) Sodium Chloride (Sodium Chloride 0.9%) 1,000 mls @ 60 mls/hr IV .[id number] [facility] Last Admin: 07/03/18 03:56 Dose: 60 mls/hr Levalbuterol HCl (Xopenex) 1.25 mg IH TIDRESP [facility] Last Admin: 07/03/18 07:31 Dose: 1.25 mg Methylprednisolone (Solu-Medrol) 20 mg IV Q12 [facility] Last Admin: 07/02/18 22:04 Dose: 20 mg Metoprolol Succinate (Toprol Xl) 25 mg PO BRK [facility] Last Admin: 07/02/18 13:45 Dose: 25 mg Ondansetron HCl (Zofran Inj) 4 mg IVP Q6H PRN PRN Reason: Nausea/Vomiting Pantoprazole Sodium (Protonix Inj) 40 mg IVP DAILY [facility] Last Admin: 07/02/18 09:53 Dose: 40 mg Vancomycin HCl (Vancocin 25 Mg/Ml (Oral Use)) 250 mg PO QID [facility]; Protocol Last Admin: 07/02/18 21:12 Dose: 250 mg Verapamil HCl (Verapamil Inj) 2.5 mg IVP Q6H PRN PRN Reason: for heart rate >130 Zolpidem Tartrate (Ambien) 5 mg PO HS PRN; Protocol PRN Reason: Insomnia Last Admin: 07/02/18 22:20 Dose: 5 mg - Labs Labs: 07/03/18 06:00 07/03/18 06:00 PT 13.9 SECONDS (9.4-12.5) H 07/01/18 01:30 INR 1.21 07/01/18 01:30 APTT 33.6 Seconds (25.1-36.5) 07/01/18 01:30 - Constitutional Appears: No Acute Distress - Head Exam Head Exam: NORMOCEPHALIC - Eye Exam Eye Exam: EOMI, Normal appearance - ENT Exam ENT Exam: Mucous Membranes Moist - Respiratory Exam Respiratory Exam: NORMAL BREATHING PATTERN - Cardiovascular Exam Cardiovascular Exam: +S1, +S2 - GI/Abdominal Exam GI & Abdominal Exam: Soft, Tenderness - Neurological Exam Neurological Exam: Alert, Awake, Oriented x3 - Psychiatric Exam Psychiatric exam: Normal Mood - Skin Skin Exam: Normal Color, Warm Assessment and Plan - Assessment and Plan (Free Text) Assessment: 83F with pancolitis, ?choledocholithiasis Plan: -NPO -IVF -ABx per ID -Abd Xray -If abd Xray w/o marcello colon, may consider Vanc enema -f/u MRCP -f/u cardio recs -Medical management per primary team -D/w Dr. Alex Guo PGY3
--- NOTE | 2018-07-03 10:53 | RAD ---
Date of service: 07/03/2018 HISTORY: cdiff, r/o megacolon COMPARISON: None available. FINDINGS: BOWEL: There is mucosal edema in the descending colon suggestive of colitis. This was demonstrated on the recent CT 07/01/2018 BONES: Severe degenerative changes in both hips OTHER FINDINGS: None. IMPRESSION: Mucosal edema in the descending colon
--- NOTE | 2018-07-03 11:08 | CP.PCM.PN ---
<Khari Wiley - Last Filed: 07/03/18 14:20> Subjective - Date & Time of Evaluation Date of Evaluation: 07/03/18 Time of Evaluation: 10:59 - Subjective Subjective: PGY-2 GI progress note for Dr Grey Today patient appeared more comfortable compared to yesterday but still with labored breathing. Having diarrhea. Abdomen was distended. NPO except meds. Stool unable to be collected due to sample being too watery. On cdiff isolation. Objective - Vital Signs/Intake and Output Vital Signs (last 24 hours): Temp Pulse Resp BP Pulse Ox 98.3 F 84 19 131/68 96 07/03/18 05:52 07/03/18 05:52 07/03/18 05:52 07/03/18 05:52 07/03/18 05:52 Intake and Output: 07/03/18 07/03/18 06:59 18:59 Intake Total 3415 Output Total 200 Balance 3215 - Medications Medications: Current Medications Acetaminophen (Tylenol 325mg Tab) 650 mg PO Q6H PRN PRN Reason: Fever >100.4 F Last Admin: 07/03/18 03:56 Dose: 650 mg Hydromorphone HCl (Dilaudid) 0.5 mg IVP Q4H PRN PRN Reason: Pain, moderate (4-7) Sodium Chloride (Sodium Chloride 0.9%) 1,000 mls @ 60 mls/hr IV .[id number] [facility] Last Admin: 07/03/18 03:56 Dose: 60 mls/hr Levalbuterol HCl (Xopenex) 1.25 mg IH TIDRESP [facility] Last Admin: 07/03/18 07:31 Dose: 1.25 mg Methylprednisolone (Solu-Medrol) 20 mg IV Q12 [facility] Last Admin: 07/02/18 22:04 Dose: 20 mg Metoprolol Succinate (Toprol Xl) 25 mg PO BRK [facility] Last Admin: 07/02/18 13:45 Dose: 25 mg Ondansetron HCl (Zofran Inj) 4 mg IVP Q6H PRN PRN Reason: Nausea/Vomiting Pantoprazole Sodium (Protonix Inj) 40 mg IVP DAILY [facility] Last Admin: 07/02/18 09:53 Dose: 40 mg Vancomycin HCl (Vancocin 25 Mg/Ml (Oral Use)) 250 mg PO QID [facility]; Protocol Last Admin: 07/02/18 21:12 Dose: 250 mg Verapamil HCl (Verapamil Inj) 2.5 mg IVP Q6H PRN PRN Reason: for heart rate >130 Zolpidem Tartrate (Ambien) 5 mg PO HS PRN; Protocol PRN Reason: Insomnia Last Admin: 07/02/18 22:20 Dose: 5 mg - Labs Labs: 07/03/18 06:00 07/03/18 06:00 PT 13.9 SECONDS (9.4-12.5) H 07/01/18 01:30 INR 1.21 07/01/18 01:30 APTT 33.6 Seconds (25.1-36.5) 07/01/18 01:30 - Additional Findings Additional findings: - Constitutional Appears: Well, Non-toxic, No Acute Distress - Head Exam Head Exam: ATRAUMATIC, NORMAL INSPECTION - Eye Exam Eye Exam: EOMI, Normal appearance, PERRL. absent: Scleral icterus - ENT Exam ENT Exam: Mucous Membranes Moist - Respiratory Exam Respiratory Exam: Rhonchi. absent: Clear to Auscultation Bilateral, Rales, Wheezes - Cardiovascular Exam Cardiovascular Exam: Tachy, IRREGULAR RHYTHM, +S1, +S2, Systolic Murmur - GI/Abdominal Exam GI & Abdominal Exam: Normal Bowel Sounds, Soft, Tenderness. absent: Distended, Firm, Guarding, Hernia - Rectal Exam Additional comments: rectal performed by ED physician showed occult blood - Extremities Exam Additional comments: Positive for contractures. Stigmata of cerebral palsy. rheumatoid palsy of hands/wrists - Neurological Exam Neurological exam: Alert, CN II-XII Intact, Oriented x3 - Skin Skin Exam: Normal Color, Warm Assessment and Plan - Assessment and Plan (Free Text) Plan: Mrs Faustin is a 83 year old totally dependent female, who's past medical history includes GI bleed, cerebral palsy, hypertension, and CVA, presents to the [facility] for evaluation of fever and decrease urine output: Colitis -most prominent in right upper quadrant, also with fever and leukocytosis and hy potension -must rule out psuedomembranous colitis -abdominal ultrasound 07/01 * gallstones, collapsed gallbladder, gallbladder wall edema, no sonographic flanagan's sign or pericholecystic fluid, common bile duct measures 14mm with no stones -CT abd/pelvis po contrast 07/01 * mural thickening throughout colon consistent with colitis most severe in sigmoid, large hiatal hernia, mural thickening in herniated stomach consistent with gastritis -biliary hida scan 07/01 * normal -Abd xray 07/03 * mucosal edema in descending colon -ID on board, started zosyn 3.375g ivp q8h 07/01 -on metronidazole iv 500mg q8h and vanco 250mg po qid -f/u stool cx, cdiff toxin and antigen -f/u MRCP w/wo contrast to r/o common bile duct stone -keep npo except meds for now -blood and urine cx negative up to date -Dr Grey to discuss with primary regarding need for solumedrol GI Bleed -self reported hx of diarrhea that was black in color (however takes iron tablets at [facility]) -FOBT negative -hgb 11.4 on admission with normal mcv -has a hx of esophageal ulcers as a bleeding source as confirmed by EGD in 11/2016 Previous GI procedures: -EGD 11/2016 showed grade c esophageal ulcerations and a 5cm hiatal hernia (report not available in [facility]) Seen and discussed with Dr Grey <Erkia Grey V - Last Filed: 07/03/18 22:12> Objective - Vital Signs/Intake and Output Vital Signs (last 24 hours): Temp Pulse Resp BP Pulse Ox 97.4 F L 90 20 125/70 91 L 07/03/18 18:00 07/03/18 18:00 07/03/18 18:00 07/03/18 18:00 07/03/18 18:00 Intake and Output: 07/03/18 07/04/18 18:59 06:59 Output Total 1 Balance -1 - Medications Medications: Current Medications Acetaminophen (Tylenol 325mg Tab) 650 mg PO Q6H PRN PRN Reason: Fever >100.4 F Last Admin: 07/03/18 18:30 Dose: 650 mg Hydromorphone HCl (Dilaudid) 0.5 mg IVP Q4H PRN PRN Reason: Pain, moderate (4-7) Sodium Chloride (Sodium Chloride 0.9%) 1,000 mls @ 60 mls/hr IV .[id number] [facility] Last Admin: 07/03/18 03:56 Dose: 60 mls/hr Metronidazole (Flagyl) 500 mg in 100 mls @ 100 mls/hr IVPB Q8 [facility]; Protocol Last Admin: 07/03/18 21:01 Dose: 100 mls/hr Levalbuterol HCl (Xopenex) 1.25 mg IH TIDRESP [facility] Last Admin: 07/03/18 20:01 Dose: 1.25 mg Metoprolol Succinate (Toprol Xl) 25 mg PO BRK [facility] Last Admin: 07/03/18 12:21 Dose: 25 mg Ondansetron HCl (Zofran Inj) 4 mg IVP Q6H PRN PRN Reason: Nausea/Vomiting Pantoprazole Sodium (Protonix Inj) 40 mg IVP DAILY [facility] Last Admin: 07/03/18 12:21 Dose: 40 mg Vancomycin HCl (Vancocin 25 Mg/Ml (Oral Use)) 250 mg PO QID [facility]; Protocol Last Admin: 07/03/18 20:59 Dose: 250 mg Verapamil HCl (Verapamil Inj) 2.5 mg IVP Q6H PRN PRN Reason: for heart rate >130 Zolpidem Tartrate (Ambien) 5 mg PO HS PRN; Protocol PRN Reason: Insomnia Last Admin: 07/03/18 20:58 Dose: 5 mg - Labs Labs: 07/03/18 06:00 07/03/18 06:00 PT 13.9 SECONDS (9.4-12.5) H 07/01/18 01:30 INR 1.21 07/01/18 01:30 APTT 33.6 Seconds (25.1-36.5) 07/01/18 01:30 Attending/Attestation - Attestation I have personally seen and examined this patient.: Yes I have fully participated in the care of the patient.: Yes I have reviewed all pertinent clinical information, including history, physical exam and plan: Yes Notes (Text): This is an addendum to GI followup report dictated by the Charge Accounts Audit Clerk. The patient was seen and evaluated earlier. Medical records, lab studies, imagings were reviewed. Last 24 hours events reviewed. Agreed with the above treatment plan as outlined in Charge Accounts Audit Clerk 's notes with the addition of the following Patient feeling slightly better, On examination abdomen was soft and milf tenderness was present in the right upper quadrant but less compared to before Discussed with the Dr. Johnson we will start the patient on clear liquid diet Follow-up labs 07/03/18 22:08
--- NOTE | 2018-07-03 11:32 | CP.PCM.PCO ---
Physician Communication Note - Physician Communication Note Physician Communication Note: Colitis-Improving/GB HHernia ulcer no RX Now
[2018-07-03] MEDS: Metoprolol Succinate 25 mg XL Tab PO SCH (12:21)
[2018-07-03] MEDS: MethylPREDNISolone 40 mg Vial IV SCH (12:21)
[2018-07-03] MEDS: Vancomycin 25 MG/ML PO SCH ×4 (12:22→20:59)
--- NOTE | 2018-07-03 13:25 | CARD ---
APPROVED REPORT Date of service: 07/03/2018 EKG Measurement Heart [id number] <Conclusion> Normal sinus rhythm Low voltage QRS Borderline ECG
[2018-07-03] MEDS ORDERED: Gadodiamide 287 MG/ML VIAL (15ML) IV ONE (13:46)
[2018-07-03] MEDS ORDERED: Vancomycin 500 mg (Oral/Rectal USE) PR SCH (14:00)
--- NOTE | 2018-07-03 15:20 | MRI ---
Date of service: 07/03/2018 PROCEDURE: MRI Abdomen with and without contrast HISTORY: COMPARISON: None available. TECHNIQUE: Multisequence, multiplanar MR images of the abdomen with and without gadolinium contrast enhancement. FINDINGS: LIVER: Unremarkable. GALLBLADDER: Cholelithiasis. Dilated common bile duct measuring up to 13 millimeters in the efraín hepatis. No evidence of choledocholithiasis. SPLEEN: Unremarkable. PANCREAS: Unremarkable. ADRENALS: Unremarkable. KIDNEYS: Unremarkable. AORTA: No aneurysm. ASCITES: None. PERITONEUM: Unremarkable. LYMPH NODES: Unremarkable. OTHER FINDINGS: Bilateral pleural effusions with compressive atelectasis at the lung bases. Diffuse ascites. Large hiatal hernia. IMPRESSION: Cholelithiasis. Dilated common bile duct measuring up to 13 millimeters in the efraín hepatis. No evidence of choledocholithiasis. Bilateral pleural effusions with compressive atelectasis at the lung bases. Diffuse ascites. Large hiatal hernia.
[2018-07-03] MEDS: metroNIDAZOLE IV 500 mg/100 ml 500 MG/100 ML BAG IVPB SCH ×2 (16:33→21:01)
--- NOTE | 2018-07-03 16:47 | PN ---
DATE: 07/03/2018 SUBJECTIVE: The patient was seen earlier this morning, continues to have diarrhea. Nursing staff states that they were not able to collect the stool for C. diff, but the patient is having significant amount of diarrhea. PHYSICAL EXAMINATION: VITAL SIGNS: Temperature is 98, her temperature has subsided from 102 down to 98. Blood pressure is 130/60, respiratory rate is 18, heart rate of 88. HEENT: Unremarkable. NECK: Supple. CARDIOPULMONARY: Normal S1 and S2. LUNGS: Decreased breath sounds. ABDOMEN: Soft. LABORATORY EXAMINATION: Reveals a white count of 34,000, hemoglobin of 12. The patient did have 13% bandemia. Chemistries are noted and troponins are elevated. Urinalysis is noted and stool occult is negative. Microbiology, the blood cultures and urine cultures are negative. MEDICATIONS: The patient is on p.o. vancomycin. Dr. Johnson' communication report is noted. ASSESSMENT AND PLAN: An 83-year-old female [facility] patient with cerebral palsy, cerebrovascular accident, rheumatoid arthritis, gastrointestinal bleed, diarrhea, 13% bandemia with sepsis with probable Pseudomembranous colitis, currently on p.o. vancomycin. If she cannot take p.o. vancomycin, we will also add intravenous Flagyl if there is any question of ileus. We will follow with you. Ziggy Mix MD
--- NOTE | 2018-07-03 19:45 | PN ---
DATE: 07/03/2018 SUBJECTIVE: The patient is 83 years old, seen and examined, seems to be more awake and alert. She does not have diarrhea. No nausea. PHYSICAL EXAMINATION: VITAL SIGNS: She is afebrile, pulse 84, respirations 16, and blood pressure 130/61. LUNGS: Bilateral fair air flow, no rhonchi or crackles. HEART: S1 and S2 audible. ABDOMEN: Soft, no rebound or guarding. NEUROLOGIC: The patient is awake, alert, and oriented, able to communicate. LABORATORY DATA: WBC is 34.2, hemoglobin 12, hematocrit 37, platelets of 371. Chemistries: Sodium 144, potassium 3.5, chloride 120, CO2 20, BUN 27, creatinine 0.8, blood sugar of 125. Her troponin is 0.40. Blood cultures and urine cultures are negative. She had an MRCP done, results are pending. ASSESSMENT: 1. Leukocytosis and diarrhea, probably Clostridium difficile colitis, cultures still not available. 2. Pancolitis. 3. Paroxysmal atrial fibrillation. 4. History of cerebral palsy and hypertension. 5. History of hiatal hernia. PLAN: Currently, the patient is on metronidazole. She is on Protonix. She is on IV fluids. We will start her with clear liquid diet. Currently, she is on Xopenex, started her on clear liquid diet. We will follow up her CBC and CMP in the a.m. Mi Solis MD
--- NOTE | 2018-07-03 23:23 | PN ---
DATE: 07/03/2018 REASON FOR CONSULTATION: AFib with rapid rate, admitted with abdominal pain. The patient denies any chest pain, shortness of breath, or any palpitation, lying comfortable. PHYSICAL EXAMINATION VITAL SIGNS: Temperature afebrile, heart rate 88, and blood pressure 125/70. HEENT: PERRLA intact. NECK: Supple. No carotid bruits or thyromegaly. CHEST: Clear to auscultation. HEART: S1 and S2 regular. ABDOMEN: Soft. EXTREMITIES: Clubbing and cyanosis negative. LABORATORY DATA: Blood workup as follows: WBC 34.2, hemoglobin 12 , hematocrit 37.1, platelets count 371. Chemistry shows sodium 144, potassium 3.5, chloride 120, carbon dioxide 20, anion gap of 7, BUN 27. Troponin 0.45, 0.45, and 0.1. IMPRESSION: An 83-year-old female from the [facility], transferred because of abdominal pain, urinary tract infection, Klebsiella, resistant to Vantin, found to be in atrial fibrillation with rapid ventricular rate, troponin positive, history of cerebral palsy, history of hypertension, history of cerebrovascular accident, history of gastrointestinal bleed. Recommended the patient is not a candidate for anticoagulation because of history of gastrointestinal bleed, admitted with abdominal pain leukocytosis, possible sepsis, bacteremia, bandemia, and diarrhea. The patient had echocardiography done that revealed ejection fraction 60-65%, trace aortic regurgitation, [id number] mitral regurgitation, and [id number] tricuspid regurgitation. RECOMMENDATION: Since the patient is n.p.o., continue verapamil. Once the patient start p.o. we will change to p.o. meds. Overall, the patient's condition is critical. Long-term prognosis is guarded. We will follow with you. Thank you Dr. Solis for the opportunity in taking care of the patient, Yessenia Patterson. The patient is not a candidate for anticoagulation. Continue broad-spectrum antibiotic as per Dr. Mix. We will follow with you. Ren Mcdaniel MD cc: Mi Solis MD
[2018-07-04] MEDS: Sodium Chloride 0.9% 1,000 ML IV SCH ×3 (04:27→18:27)
[2018-07-04] MEDS: metroNIDAZOLE IV 500 mg/100 ml 500 MG/100 ML BAG IVPB SCH ×3 (05:30→21:50)
[2018-07-04 07:26] LABS: HEMOGLOBIN 12.7 g/dL (12.0-16.0); MEAN CELL VOLUME 89.2 fl (80.0-105.0); MEAN CORPUSCULAR HEMOGLOBIN 30.5 pg (25.0-35.0); MEAN CORPUSCULAR HGB CONC 34.2 g/dl (31.0-37.0); MEAN PLATELET VOLUME 10.5 fl (7.0-11.0); PLATELET COUNT 412 10^3/uL (120.0-450.0); RBC 4.16 10^6/uL (3.5-6.1); RED CELL DISTRIBUTION WIDTH 14.8 % (11.5-14.5)
--- NOTE | 2018-07-04 07:48 | CP.PCM.PN ---
Subjective - Date & Time of Evaluation Date of Evaluation: 07/04/18 Time of Evaluation: 07:44 - Subjective Subjective: General Surgery Progress Note for Dr. Johnson 83F, seen and evaluated at bedside this morning. No acute events overnight. Patient tolerating clears. No complaints at this time. Denies f/c, n/v, CP, SOB, or urinary symptoms. Objective - Vital Signs/Intake and Output Vital Signs (last 24 hours): Temp Pulse Resp BP Pulse Ox 98.1 F 86 24 130/80 97 07/04/18 06:00 07/04/18 06:00 07/04/18 06:00 07/04/18 06:00 07/04/18 06:00 Intake and Output: 07/04/18 07/04/18 06:59 18:59 Intake Total 960 Output Total 150 Balance 810 - Medications Medications: Current Medications Acetaminophen (Tylenol 325mg Tab) 650 mg PO Q6H PRN PRN Reason: Fever >100.4 F Last Admin: 07/03/18 18:30 Dose: 650 mg Hydromorphone HCl (Dilaudid) 0.5 mg IVP Q4H PRN PRN Reason: Pain, moderate (4-7) Sodium Chloride (Sodium Chloride 0.9%) 1,000 mls @ 60 mls/hr IV .[id number] [facility] Last Admin: 07/04/18 04:27 Dose: 60 mls/hr Metronidazole (Flagyl) 500 mg in 100 mls @ 100 mls/hr IVPB Q8 [facility]; Protocol Last Admin: 07/04/18 05:30 Dose: 100 mls/hr Levalbuterol HCl (Xopenex) 1.25 mg IH TIDRESP [facility] Last Admin: 07/03/18 20:01 Dose: 1.25 mg Metoprolol Succinate (Toprol Xl) 25 mg PO BRK [facility] Last Admin: 07/03/18 12:21 Dose: 25 mg Ondansetron HCl (Zofran Inj) 4 mg IVP Q6H PRN PRN Reason: Nausea/Vomiting Pantoprazole Sodium (Protonix Inj) 40 mg IVP DAILY [facility] Last Admin: 07/03/18 12:21 Dose: 40 mg Vancomycin HCl (Vancocin 25 Mg/Ml (Oral Use)) 250 mg PO QID [facility]; Protocol Last Admin: 07/03/18 20:59 Dose: 250 mg Verapamil HCl (Verapamil Inj) 2.5 mg IVP Q6H PRN PRN Reason: for heart rate >130 Zolpidem Tartrate (Ambien) 5 mg PO HS PRN; Protocol PRN Reason: Insomnia Last Admin: 07/03/18 20:58 Dose: 5 mg - Labs Labs: 07/03/18 06:00 07/03/18 06:00 PT 13.9 SECONDS (9.4-12.5) H 07/01/18 01:30 INR 1.21 07/01/18 01:30 APTT 33.6 Seconds (25.1-36.5) 07/01/18 01:30 - Constitutional Appears: Well, Non-toxic, No Acute Distress - Head Exam Head Exam: ATRAUMATIC, NORMAL INSPECTION, NORMOCEPHALIC - Eye Exam Eye Exam: EOMI - ENT Exam ENT Exam: Mucous Membranes Dry - GI/Abdominal Exam GI & Abdominal Exam: Soft, Normal Bowel Sounds. absent: Tenderness - Neurological Exam Neurological Exam: Alert, Awake Assessment and Plan - Assessment and Plan (Free Text) Assessment: 83F w/ abdominal pain Plan: CLD IVF IV Abx per ID White count trending up, again recommending vancomycin enemas in addition to PO Vanc and Flagyl Continue pain control and antiemetics as needed Monitor AM labs MRCP negative for choledocholithiasis Medical management per primary team Further recommendations per Dr. Alex Choudhury PGY1
[2018-07-04 07:51] LABS: WHITE BLOOD COUNT 36.4 10^3/uL (4.5-11.0)
[2018-07-04 07:52] LABS: ALB/GLOB RATIO 0.9 (1.1-1.8); ALBUMIN 2.5 g/dL (3.0-4.8); ALT/SGPT 30 U/L (7-56); AST/SGOT 24 U/L (14-36); BLOOD UREA NITROGEN 26 mg/dL (7-21); CALCIUM 8.4 mg/dL (8.4-10.5); GFR NON-AFRICAN AMERICAN > 60
[2018-07-04] MEDS: Levalbuterol 1.25 MG/3 ML Inhal Soln UD IH SCH ×3 (08:15→19:28)
[2018-07-04 09:09] LABS: BAND 2 % (0-2); LYMPHOCYTE 3 % (22.0-35.0); METAMYELOCYTE 2 %; MONOCYTE 2 % (1.0-6.0); MYELOCYTE 1 %; NEUTROPHIL 90 % (50.0-70.0); PLATELET ESTIMATE NORMAL (NORMAL)
--- NOTE | 2018-07-04 09:55 | CP.PCM.PN ---
<Aleksey Queen - Last Filed: 07/04/18 09:56> Subjective - Date & Time of Evaluation Date of Evaluation: 07/04/18 Time of Evaluation: 09:49 - Subjective Subjective: Patient is complaining of discomfort. Wants her wheelchair. HDS, NAD. Discussed with nursing. She is tolerating diet and still having frequent BMs. Stool has been collected. No reports of bleeding. Objective - Vital Signs/Intake and Output Vital Signs (last 24 hours): Temp Pulse Resp BP Pulse Ox 98.1 F 86 24 130/80 97 07/04/18 06:00 07/04/18 06:00 07/04/18 06:00 07/04/18 06:00 07/04/18 06:00 Intake and Output: 07/04/18 07/04/18 06:59 18:59 Intake Total 960 Output Total 150 Balance 810 - Medications Medications: Current Medications Acetaminophen (Tylenol 325mg Tab) 650 mg PO Q6H PRN PRN Reason: Fever >100.4 F Last Admin: 07/03/18 18:30 Dose: 650 mg Hydromorphone HCl (Dilaudid) 0.5 mg IVP Q4H PRN PRN Reason: Pain, moderate (4-7) Sodium Chloride (Sodium Chloride 0.9%) 1,000 mls @ 60 mls/hr IV .[id number] [facility] Last Admin: 07/04/18 04:27 Dose: 60 mls/hr Metronidazole (Flagyl) 500 mg in 100 mls @ 100 mls/hr IVPB Q8 [facility]; Protocol Last Admin: 07/04/18 05:30 Dose: 100 mls/hr Levalbuterol HCl (Xopenex) 1.25 mg IH TIDRESP [facility] Last Admin: 07/04/18 08:15 Dose: 1.25 mg Metoprolol Succinate (Toprol Xl) 25 mg PO BRK [facility] Last Admin: 07/03/18 12:21 Dose: 25 mg Ondansetron HCl (Zofran Inj) 4 mg IVP Q6H PRN PRN Reason: Nausea/Vomiting Pantoprazole Sodium (Protonix Inj) 40 mg IVP DAILY [facility] Last Admin: 07/03/18 12:21 Dose: 40 mg Vancomycin HCl (Vancocin 25 Mg/Ml (Oral Use)) 250 mg PO QID [facility]; Protocol Last Admin: 07/03/18 20:59 Dose: 250 mg Verapamil HCl (Verapamil Inj) 2.5 mg IVP Q6H PRN PRN Reason: for heart rate >130 Zolpidem Tartrate (Ambien) 5 mg PO HS PRN; Protocol PRN Reason: Insomnia Last Admin: 07/03/18 20:58 Dose: 5 mg - Labs Labs: 07/04/18 06:30 07/04/18 06:30 PT 13.9 SECONDS (9.4-12.5) H 07/01/18 01:30 INR 1.21 07/01/18 01:30 APTT 33.6 Seconds (25.1-36.5) 07/01/18 01:30 - Constitutional Appears: Non-toxic, No Acute Distress, Chronically Ill - Head Exam Head Exam: NORMAL INSPECTION - Eye Exam Eye Exam: EOMI, Normal appearance - Respiratory Exam Respiratory Exam: absent: Respiratory Distress, NORMAL BREATHING PATTERN - Cardiovascular Exam Cardiovascular Exam: REGULAR RHYTHM, +S1, +S2 - GI/Abdominal Exam GI & Abdominal Exam: Distended, Soft, Tenderness - Psychiatric Exam Psychiatric exam: absent: Normal Affect, Normal Mood - Skin Skin Exam: Dry, Normal Color Assessment and Plan - Assessment and Plan (Free Text) Assessment: Mrs Faustin is a 83 year old totally dependent female, who's past medical history includes GI bleed, cerebral palsy, hypertension, and CVA, [facility] for evaluation of fever and decrease urine output: Colitis -most prominent in right upper quadrant, also with fever and leukocytosis and hypotension -must rule out psuedomembranous colitis -abdominal ultrasound 07/01 * gallstones, collapsed gallbladder, gallbladder wall edema, no sonographic flanagan's sign or pericholecystic fluid, common bile duct measures 14mm with no stones -CT abd/pelvis po contrast 07/01 * mural thickening throughout colon consistent with colitis most severe in sigmoid, large hiatal hernia, mural thickening in herniated stomach consistent with gastritis -biliary hida scan 07/01 * normal -Abd xray 07/03 * mucosal edema in descending colon -MRCP 07/03 * gallstones. CBD 13mm. NO obvious choledocolithiasis. -ID on board, started zosyn 3.375g ivp q8h 07/01 -on metronidazole iv 500mg q8h and vanco 250mg po qid -f/u stool cx, cdiff toxin and antigen -Continue full liquid diet -blood and urine cx negative up to date <Erika Grey V - Last Filed: 07/04/18 20:07> Objective - Vital Signs/Intake and Output Vital Signs (last 24 hours): Temp Pulse Resp BP Pulse Ox 98.1 F 86 20 132/75 92 L 07/04/18 17:01 07/04/18 17:01 07/04/18 17:01 07/04/18 17:01 07/04/18 17:01 - Medications Medications: Current Medications Acetaminophen (Tylenol 325mg Tab) 650 mg PO Q6H PRN PRN Reason: Fever >100.4 F Last Admin: 07/04/18 10:16 Dose: 650 mg Enoxaparin Sodium (Lovenox) 30 mg SC DAILY [facility]; Protocol Hydromorphone HCl (Dilaudid) 0.5 mg IVP Q4H PRN PRN Reason: Pain, moderate (4-7) Sodium Chloride (Sodium Chloride 0.9%) 1,000 mls @ 60 mls/hr IV .[id number] [facility] Last Admin: 07/04/18 18:27 Dose: 60 mls/hr Metronidazole (Flagyl) 500 mg in 100 mls @ 100 mls/hr IVPB Q8 [facility]; Protocol Last Admin: 07/04/18 13:18 Dose: 100 mls/hr Levalbuterol HCl (Xopenex) 1.25 mg IH TIDRESP [facility] Last Admin: 07/04/18 19:28 Dose: 1.25 mg Metoprolol Succinate (Toprol Xl) 25 mg PO BRK [facility] Last Admin: 07/04/18 10:13 Dose: 25 mg Ondansetron HCl (Zofran Inj) 4 mg IVP Q6H PRN PRN Reason: Nausea/Vomiting Pantoprazole Sodium (Protonix Inj) 40 mg IVP DAILY [facility] Last Admin: 07/04/18 10:14 Dose: 40 mg Vancomycin HCl (Vancocin 25 Mg/Ml (Oral Use)) 250 mg PO QID [facility]; Protocol Last Admin: 07/04/18 18:22 Dose: 250 mg Verapamil HCl (Calan Tab) 40 mg PO Q8 [facility] Last Admin: 07/04/18 14:19 Dose: 40 mg Zolpidem Tartrate (Ambien) 5 mg PO HS PRN; Protocol PRN Reason: Insomnia Last Admin: 07/03/18 20:58 Dose: 5 mg - Labs Labs: 07/04/18 06:30 07/04/18 06:30 PT 13.9 SECONDS (9.4-12.5) H 07/01/18 01:30 INR 1.21 07/01/18 01:30 APTT 33.6 Seconds (25.1-36.5) 07/01/18 01:30 Attending/Attestation - Attestation I have personally seen and examined this patient.: Yes I have fully participated in the care of the patient.: Yes I have reviewed all pertinent clinical information, including history, physical exam and plan: Yes Notes (Text): This is an addendum to GI progress report dictated by the GI Fellow.The patient was seen and examined earlier. Medical records, lab studies, imagings were reviewed. Last 24 hours events reviewed. Agreed with the above treatment plan as outlined in GI Fellow 's notes with the addition of the following Feels slightly better still has some mild tenderness in the upper abdomen Pancolitis with a significant thickening of the sigmoid colon more suggestive of C. difficile colitis Large paraesophageal hernia with thickened wall on Liquid diet MRI scan was reviewed no obvious mass causing this dilation possibility of ampullary stenosis to be considered. Ideally EUS could be the option but in view of this large paraesophageal hernia with a large portion of the stomach in the chest it may be difficult to do good evaluation of the bile duct by an EUS. CT scan with pancreatic protocol may be option which she we can consider later continue antibiotics as per ID 07/04/18 20:06
--- NOTE | 2018-07-04 10:10 | CP.PCM.PN ---
Subjective - Date & Time of Evaluation Date of Evaluation: 07/04/18 Time of Evaluation: 06:50 - Subjective Subjective: Awake, alert, anxious Reason for consultation and follow up: Cardiac evaluation of rapid atrial fibrillation (new onset).History of cerebral palsy,hypertension,CVA and GI bleeding/gastric ulcer, urinary tract infection Seen and examined by me and Dr. Mcdaniel Objective - Vital Signs/Intake and Output Vital Signs (last 24 hours): Temp Pulse Resp BP Pulse Ox 98.1 F 86 24 130/80 97 07/04/18 06:00 07/04/18 06:00 07/04/18 06:00 07/04/18 06:00 07/04/18 06:00 Intake and Output: 07/04/18 07/04/18 06:59 18:59 Intake Total 960 Output Total 150 Balance 810 - Medications Medications: Current Medications Acetaminophen (Tylenol 325mg Tab) 650 mg PO Q6H PRN PRN Reason: Fever >100.4 F Last Admin: 07/03/18 18:30 Dose: 650 mg Hydromorphone HCl (Dilaudid) 0.5 mg IVP Q4H PRN PRN Reason: Pain, moderate (4-7) Sodium Chloride (Sodium Chloride 0.9%) 1,000 mls @ 60 mls/hr IV .[id number] [facility] Last Admin: 07/04/18 04:27 Dose: 60 mls/hr Metronidazole (Flagyl) 500 mg in 100 mls @ 100 mls/hr IVPB Q8 [facility]; Protocol Last Admin: 07/04/18 05:30 Dose: 100 mls/hr Levalbuterol HCl (Xopenex) 1.25 mg IH TIDRESP [facility] Last Admin: 07/04/18 08:15 Dose: 1.25 mg Metoprolol Succinate (Toprol Xl) 25 mg PO BRK [facility] Last Admin: 07/03/18 12:21 Dose: 25 mg Ondansetron HCl (Zofran Inj) 4 mg IVP Q6H PRN PRN Reason: Nausea/Vomiting Pantoprazole Sodium (Protonix Inj) 40 mg IVP DAILY [facility] Last Admin: 07/03/18 12:21 Dose: 40 mg Vancomycin HCl (Vancocin 25 Mg/Ml (Oral Use)) 250 mg PO QID [facility]; Protocol Last Admin: 07/03/18 20:59 Dose: 250 mg Verapamil HCl (Verapamil Inj) 2.5 mg IVP Q6H PRN PRN Reason: for heart rate >130 Zolpidem Tartrate (Ambien) 5 mg PO HS PRN; Protocol PRN Reason: Insomnia Last Admin: 07/03/18 20:58 Dose: 5 mg - Labs Labs: 07/04/18 06:30 07/04/18 06:30 PT 13.9 SECONDS (9.4-12.5) H 07/01/18 01:30 INR 1.21 07/01/18 01:30 APTT 33.6 Seconds (25.1-36.5) 07/01/18 01:30 - Constitutional Appears: Non-toxic, No Acute Distress - Head Exam Head Exam: NORMAL INSPECTION, NORMOCEPHALIC - Eye Exam Eye Exam: Normal appearance Pupil Exam: NORMAL ACCOMODATION - ENT Exam ENT Exam: Mucous Membranes Dry - Respiratory Exam Respiratory Exam: Decreased Breath Sounds, Clear to Ausculation Bilateral - Cardiovascular Exam Cardiovascular Exam: REGULAR RHYTHM, +S1, +S2 Additional comments: Telemetry NSR 70's - GI/Abdominal Exam GI & Abdominal Exam: Soft, Normal Bowel Sounds - Extremities Exam Additional comments: 2+edema - Neurological Exam Neurological Exam: Alert, Awake, Oriented x3 - Psychiatric Exam Psychiatric exam: Anxious - Skin Skin Exam: Dry, Normal Color, Warm Assessment and Plan - Assessment and Plan (Free Text) Assessment: An 83 year old female who was transferred [facility]. she was being [place] [facility] [place] [facility] for UTI ( Klebsiella in urine) started with Cipro but resistant and changed to Vantin. A day prior to admission patient spiked temperature and so was brought [place] [facility] [place] work [place]. 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 Today, she had an episode of rapid atrial fibrillation (new onset) and Cardiology consult was called. Cardizem IV was given. Digoxin 0.25 mg given and another dose at 2 pm.Heart rate went down to 120-130's. EKG yesterday NSR with APC's, no ischemia. Troponin positive, No previous cardiac work up done at [facility]. Plan: Awake, anxious,no distress Telemetry converted to NSR No anticoagulation for now due to history of GI bleeding GI on consult, work up in progress On Toprol 25 mg daily,Verapamil 2.5 mg every 6 hours Will discontinue IV Verapamil and start oral Discontinue telemetry Replenish potassium Continue current treatment Continue current medications Chart reviewed DNR/DNI Will follow up Plan and treatment discussed with Dr. Mcdaniel
[2018-07-04] MEDS: Metoprolol Succinate 25 mg XL Tab PO SCH (10:13)
[2018-07-04] MEDS: Vancomycin 25 MG/ML PO SCH ×4 (10:14→21:53)
[2018-07-04] MEDS ORDERED: Potassium Chloride 40 mEq/30 ml LIQ UD PO STA (13:09)
[2018-07-04] MEDS: Potassium Chloride 20 mEq ER Tab PO STA (13:19)
--- NOTE | 2018-07-04 17:50 | PN ---
DATE: 07/04/2018 SUBJECTIVE: The patient is seen earlier today. She is having significant diarrhea and had no more fevers. She appears to be comfortable. PHYSICAL EXAMINATION: VITAL SIGNS: Temperature is 98, blood pressure is 130/80, respiratory rate of 24. HEENT: Unremarkable. NECK: Supple. LUNGS: Have decreased breath sounds. HEART: Normal S1, S2. ABDOMINAL: Soft. LABORATORY EXAMINATION: Reveals a white count of 36,000, hemoglobin of 12, platelets of 412. Chemistries reveals a BUN of 26, creatinine of 0.7 with the troponin is elevated. Microbiology: Blood cultures negative. Urine cultures negative. Currently on IV Flagyl, p.o. vancomycin and vancomycin in a.m. ASSESSMENT AND PLAN: An 83-year-old female seen earlier today from a retirement with cerebral palsy, cerebrovascular accident, rheumatoid arthritis, gastrointestinal bleed, who is admitted with sepsis, diarrhea, probable pseudomembranous colitis on p.o. vancomycin and IV Flagyl, questionable ileus and awaiting for stool for Clostridium difficile. The patient's white count is still elevated at 36,000. She is behaving like pseudomembranous colitis, although she did have 13% bandemia on admission. The patient also had magnetic resonance cholangiopancreatography, which was read by Dr. Del Bonilla, which showed cholelithiasis, dilated common bile duct measures up to 13 mm and the efraín hepatis. No evidence of choledocholithiasis, bilateral pleural effusion, compression atelectasis. She is clinically nontoxic and her fevers have subsided. However, white count has continued to remain elevated. We will continue the p.o. vancomycin and IV Flagyl. We will discuss with GI regarding an magnetic resonance cholangiopancreatography finding. Dr. Johnson' communication report from yesterday states that the gallbladder and hernia ulcer, no treatment at this time. We will follow with you. Ziggy Mix MD
[2018-07-05] MEDS: metroNIDAZOLE IV 500 mg/100 ml 500 MG/100 ML BAG IVPB SCH ×3 (06:11→22:08)
[2018-07-05] MEDS: Levalbuterol 1.25 MG/3 ML Inhal Soln UD IH SCH ×3 (07:21→20:55)
--- NOTE | 2018-07-05 07:32 | CP.PCM.PN ---
Subjective - Date & Time of Evaluation Date of Evaluation: 07/05/18 Time of Evaluation: 06:55 - Subjective Subjective: No distress, awake, alert Reason for consultation and follow up: Cardiac evaluation of rapid atrial fibrillation (new onset).History of cerebral palsy,hypertension,CVA and GI bleeding/gastric ulcer, urinary tract infection Seen and examined by me and Dr. Mcdaniel Objective - Vital Signs/Intake and Output Vital Signs (last 24 hours): Temp Pulse Resp BP Pulse Ox 97.4 F L 93 H 18 128/73 94 L 07/04/18 23:01 07/05/18 06:11 07/04/18 23:01 07/05/18 06:11 07/04/18 23:01 Intake and Output: 07/05/18 07/05/18 06:59 18:59 Intake Total Output Total Balance - Medications Medications: Current Medications Acetaminophen (Tylenol 325mg Tab) 650 mg PO Q6H PRN PRN Reason: Fever >100.4 F Last Admin: 07/04/18 10:16 Dose: 650 mg Enoxaparin Sodium (Lovenox) 30 mg SC DAILY [facility]; Protocol Hydromorphone HCl (Dilaudid) 0.5 mg IVP Q4H PRN PRN Reason: Pain, moderate (4-7) Last Admin: 07/04/18 20:44 Dose: 0.5 mg Sodium Chloride (Sodium Chloride 0.9%) 1,000 mls @ 60 mls/hr IV .[id number] [facility] Last Admin: 07/04/18 18:27 Dose: 60 mls/hr Metronidazole (Flagyl) 500 mg in 100 mls @ 100 mls/hr IVPB Q8 [facility]; Protocol Last Admin: 07/05/18 06:11 Dose: 100 mls/hr Levalbuterol HCl (Xopenex) 1.25 mg IH TIDRESP [facility] Last Admin: 07/05/18 07:21 Dose: 1.25 mg Metoprolol Succinate (Toprol Xl) 25 mg PO BRK [facility] Last Admin: 07/04/18 10:13 Dose: 25 mg Ondansetron HCl (Zofran Inj) 4 mg IVP Q6H PRN PRN Reason: Nausea/Vomiting Pantoprazole Sodium (Protonix Inj) 40 mg IVP DAILY [facility] Last Admin: 07/04/18 10:14 Dose: 40 mg Vancomycin HCl (Vancocin 25 Mg/Ml (Oral Use)) 250 mg PO QID [facility]; Protocol Last Admin: 07/04/18 21:53 Dose: 250 mg Verapamil HCl (Calan Tab) 40 mg PO Q8 [facility] Last Admin: 07/05/18 06:11 Dose: 40 mg Zolpidem Tartrate (Ambien) 5 mg PO HS PRN; Protocol PRN Reason: Insomnia Last Admin: 07/03/18 20:58 Dose: 5 mg - Labs Labs: 07/04/18 06:30 07/04/18 06:30 PT 13.9 SECONDS (9.4-12.5) H 07/01/18 01:30 INR 1.21 07/01/18 01:30 APTT 33.6 Seconds (25.1-36.5) 07/01/18 01:30 - Constitutional Appears: Non-toxic, No Acute Distress - Head Exam Head Exam: NORMAL INSPECTION, NORMOCEPHALIC - ENT Exam ENT Exam: Mucous Membranes Dry - Respiratory Exam Respiratory Exam: Decreased Breath Sounds, Clear to Ausculation Bilateral, NORMAL BREATHING PATTERN - Cardiovascular Exam Cardiovascular Exam: +S1, +S2 Additional comments: No JVD - GI/Abdominal Exam GI & Abdominal Exam: Soft, Normal Bowel Sounds - Extremities Exam Additional comments: 2-3+ edema on feet, contracted lower extremities - Neurological Exam Neurological Exam: Alert, Awake, Oriented x3 - Psychiatric Exam Psychiatric exam: Normal Affect, Normal Mood - Skin Skin Exam: Dry, Normal Color, Warm Assessment and Plan - Assessment and Plan (Free Text) Assessment: An 83 year old female who was transferred from [facility] to the ER. she was being treated in the shelter for UTI ( Klebsiella in urine) started with Cipro but resistant and changed to Vantin. A day prior to admission patient spiked temperature and so was brought to [facility] [place] further work up. 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 Today, she had an episode of rapid atrial fibrillation (new onset) and Cardiology consult was called. Cardizem IV was given. Digoxin 0.25 mg given and another dose at 2 pm.Heart rate went down to 120-130's. EKG yesterday NSR with APC's, no ischemia. Troponin positive,no invasive procedure at this time. Will treat medically. No previous cardiac work up done at [facility]. Contact isolation for positive C-diff, on antibiotics.Clinically stable. Plan: Clinically stable,Awake, no distress On contact isolation for C-duff Continue antibiotics per ID Heart rate and blood pressure controlled Stable cardiac status Off telemetry, converted to NSR No anticoagulation for now due to history of GI bleeding GI on consult On Toprol 25 mg daily,Verapamil 40 mg TID Replenish potassium Continue current treatment Continue current medications Chart reviewed DNR/DNI Will follow up Plan and treatment discussed with Dr. Mcdaniel
[2018-07-05] MEDS ORDERED: Potassium Chloride 20 mEq ER Tab PO STA (07:37)
[2018-07-05 07:54] LABS: HEMOGLOBIN 12.5 g/dL (12.0-16.0); MEAN CELL VOLUME 90.3 fl (80.0-105.0); MEAN CORPUSCULAR HEMOGLOBIN 30.4 pg (25.0-35.0); MEAN CORPUSCULAR HGB CONC 33.7 g/dl (31.0-37.0); MEAN PLATELET VOLUME 10.7 fl (7.0-11.0); RBC 4.11 10^6/uL (3.5-6.1); RED CELL DISTRIBUTION WIDTH 15.4 % (11.5-14.5)
[2018-07-05 08:03] LABS: WHITE BLOOD COUNT 27.5 10^3/uL (4.5-11.0)
[2018-07-05 08:21] LABS: ALB/GLOB RATIO 0.9 (1.1-1.8); ALBUMIN 2.4 g/dL (3.0-4.8); AST/SGOT 23 U/L (14-36); BLOOD UREA NITROGEN 18 mg/dL (7-21); GFR NON-AFRICAN AMERICAN > 60
[2018-07-05] MEDS: Metoprolol Succinate 25 mg XL Tab PO SCH (08:22)
[2018-07-05 09:12] LABS: ALT/SGPT 33 U/L (7-56)
[2018-07-05] MEDS: Enoxaparin 30 mg Syringe SC SCH (10:06)
[2018-07-05] MEDS: Vancomycin 25 MG/ML PO SCH ×4 (10:07→22:05)
--- NOTE | 2018-07-05 12:34 | CP.PCM.PCO ---
Physician Communication Note - Physician Communication Note Physician Communication Note: Addison liquids/clinically improving
--- NOTE | 2018-07-05 13:04 | CP.PCM.PN ---
<Aleksey Queen - Last Filed: 07/05/18 13:05> Subjective - Date & Time of Evaluation Date of Evaluation: 07/05/18 Time of Evaluation: 13:04 - Subjective Subjective: C. Diff positive. Tolerating diet. No complaints. 4 BMs yesterday. Objective - Vital Signs/Intake and Output Vital Signs (last 24 hours): Temp Pulse Resp BP Pulse Ox 97.4 F L 93 H 18 128/73 94 L 07/04/18 23:01 07/05/18 08:22 07/04/18 23:01 07/05/18 08:36 07/04/18 23:01 Intake and Output: 07/05/18 07/05/18 06:59 18:59 Intake Total Output Total Balance - Medications Medications: Current Medications Acetaminophen (Tylenol 325mg Tab) 650 mg PO Q6H PRN PRN Reason: Fever >100.4 F Last Admin: 07/04/18 10:16 Dose: 650 mg Enoxaparin Sodium (Lovenox) 30 mg SC DAILY [facility]; Protocol Last Admin: 07/05/18 10:06 Dose: 30 mg Metronidazole (Flagyl) 500 mg in 100 mls @ 100 mls/hr IVPB Q8 [facility]; Protocol Last Admin: 07/05/18 06:11 Dose: 100 mls/hr Levalbuterol HCl (Xopenex) 1.25 mg IH TIDRESP [facility] Last Admin: 07/05/18 07:21 Dose: 1.25 mg Metoprolol Succinate (Toprol Xl) 25 mg PO BRK [facility] Last Admin: 07/05/18 08:22 Dose: 25 mg Nystatin (Nystop Topical Powder) 1 gm TOP BID [facility] Ondansetron HCl (Zofran Inj) 4 mg IVP Q6H PRN PRN Reason: Nausea/Vomiting Pantoprazole Sodium (Protonix Inj) 40 mg IVP DAILY [facility] Last Admin: 07/05/18 10:06 Dose: 40 mg Vancomycin HCl (Vancocin 25 Mg/Ml (Oral Use)) 250 mg PO QID [facility]; Protocol Last Admin: 07/05/18 10:07 Dose: 250 mg Verapamil HCl (Calan Tab) 40 mg PO Q8 [facility] Last Admin: 07/05/18 06:11 Dose: 40 mg Zolpidem Tartrate (Ambien) 5 mg PO HS PRN; Protocol PRN Reason: Insomnia Last Admin: 07/03/18 20:58 Dose: 5 mg - Labs Labs: 07/05/18 07:00 07/05/18 07:00 PT 13.9 SECONDS (9.4-12.5) H 07/01/18 01:30 INR 1.21 07/01/18 01:30 APTT 33.6 Seconds (25.1-36.5) 07/01/18 01:30 - Constitutional Appears: Non-toxic, No Acute Distress - Head Exam Head Exam: NORMAL INSPECTION - Eye Exam Eye Exam: Normal appearance - Respiratory Exam Respiratory Exam: NORMAL BREATHING PATTERN - Cardiovascular Exam Cardiovascular Exam: REGULAR RHYTHM, +S1, +S2 - GI/Abdominal Exam GI & Abdominal Exam: Soft, Normal Bowel Sounds. absent: Tenderness - Neurological Exam Neurological Exam: Alert, Awake - Psychiatric Exam Psychiatric exam: Normal Affect, Normal Mood - Skin Skin Exam: Dry, Normal Color Assessment and Plan - Assessment and Plan (Free Text) Assessment: Mrs Faustin is a 83 year old totally dependent female, who's past medical history includes GI bleed, cerebral palsy, hypertension, and CVA, presents to the emergency department from [facility] for evaluation of fever and decrease urine output: #C. Diff Colitis -most prominent in right upper quadrant, also with fever and leukocytosis and hypotension -must rule out psuedomembranous colitis -abdominal ultrasound 07/01 * gallstones, collapsed gallbladder, gallbladder wall edema, no sonographic flanagan's sign or pericholecystic fluid, common bile duct measures 14mm with no stones -CT abd/pelvis po contrast 07/01 * mural thickening throughout colon consistent with colitis most severe in si gmoid, large hiatal hernia, mural thickening in herniated stomach consistent with gastritis -biliary hida scan 07/01 * normal -Abd xray 07/03 * mucosal edema in descending colon -MRCP 07/03 * gallstones. CBD 13mm. NO obvious choledocolithiasis. * No recommendations for ERCP. Possible pancreas protocol CT -on metronidazole iv 500mg q8h and vanco 250mg po qid -OK to advance diet as tolerated. -blood and urine cx negative up to date <Que,Kovil V - Last Filed: 07/05/18 19:23> Objective - Vital Signs/Intake and Output Vital Signs (last 24 hours): Temp Pulse Resp BP Pulse Ox 100.1 F H 88 20 121/67 98 07/05/18 14:00 07/05/18 14:29 07/05/18 14:00 07/05/18 14:29 07/05/18 14:00 - Medications Medications: Current Medications Acetaminophen (Tylenol 325mg Tab) 650 mg PO Q6H PRN PRN Reason: Fever >100.4 F Last Admin: 07/04/18 10:16 Dose: 650 mg Enoxaparin Sodium (Lovenox) 30 mg SC DAILY [facility]; Protocol Last Admin: 07/05/18 10:06 Dose: 30 mg Metronidazole (Flagyl) 500 mg in 100 mls @ 100 mls/hr IVPB Q8 [facility]; Protocol Last Admin: 07/05/18 14:30 Dose: 100 mls/hr Levalbuterol HCl (Xopenex) 1.25 mg IH TIDRESP [facility] Last Admin: 07/05/18 13:04 Dose: 1.25 mg Metoprolol Succinate (Toprol Xl) 25 mg PO BRK [facility] Last Admin: 07/05/18 08:22 Dose: 25 mg Nystatin (Nystop Topical Powder) 1 gm TOP BID [facility] Last Admin: 07/05/18 17:24 Dose: 1 appl Ondansetron HCl (Zofran Inj) 4 mg IVP Q6H PRN PRN Reason: Nausea/Vomiting Pantoprazole Sodium (Protonix Inj) 40 mg IVP DAILY [facility] Last Admin: 07/05/18 10:06 Dose: 40 mg Vancomycin HCl (Vancocin 25 Mg/Ml (Oral Use)) 250 mg PO QID [facility]; Protocol Last Admin: 07/05/18 17:24 Dose: 250 mg Verapamil HCl (Calan Tab) 40 mg PO Q8 [facility] Last Admin: 07/05/18 14:29 Dose: 40 mg Zolpidem Tartrate (Ambien) 5 mg PO HS PRN; Protocol PRN Reason: Insomnia Last Admin: 07/03/18 20:58 Dose: 5 mg - Labs Labs: 07/05/18 07:00 07/05/18 07:00 PT 13.9 SECONDS (9.4-12.5) H 07/01/18 01:30 INR 1.21 07/01/18 01:30 APTT 33.6 Seconds (25.1-36.5) 07/01/18 01:30 Attending/Attestation - Attestation I have personally seen and examined this patient.: Yes I have fully participated in the care of the patient.: Yes I have reviewed all pertinent clinical information, including history, physical exam and plan: Yes Notes (Text): This is an addendum to GI progress report dictated by the GI Fellow.The patient was seen and examined earlier. Medical records, lab studies, imagings were reviewed. Last 24 hours events reviewed. Agreed with the above treatment plan as outlined in GI Fellow 's notes with the addition of the following This patient tolerating diet Still has lose bowl movements On examination patient has tenderness in right upper quadrant and left lower quadrant no rebound or guarding Continue vanco and flagyl Dilated CBD with no stones in CBD Will discuss with Dr. Johnson and consider CT with pancreatic protocol 07/05/18 19:21
--- NOTE | 2018-07-05 14:26 | RAD ---
Date of service: 07/05/2018 HISTORY: R/O pneumonia Vs CHF COMPARISON: 07/02/2018 FINDINGS: LUNGS: Minimal infiltrate right lower lobe PLEURA: No significant pleural effusion identified, no pneumothorax apparent. CARDIOVASCULAR: Minimal aortic calcification Moderate cardiomegaly and aortic tortuosity no pulmonary vascular congestion. OSSEOUS STRUCTURES: No significant abnormalities. VISUALIZED UPPER ABDOMEN: Normal. OTHER FINDINGS: None. IMPRESSION: Minimal infiltrate right lower lobe
[2018-07-05] MEDS: Potassium Chloride 20 mEq ER Tab PO STA (14:29)
--- NOTE | 2018-07-05 16:41 | CP.PCM.PN ---
Subjective - Date & Time of Evaluation Date of Evaluation: 07/05/18 Time of Evaluation: 07:30 - Subjective Subjective: Patient seen and examined. Tolerating liquid diet. Abdominal pain improved. Afebrile. Objective - Vital Signs/Intake and Output Vital Signs (last 24 hours): Temp Pulse Resp BP Pulse Ox 97.4 F L 88 18 121/67 94 L 07/04/18 23:01 07/05/18 14:29 07/04/18 23:01 07/05/18 14:29 07/04/18 23:01 Intake and Output: 07/05/18 07/05/18 06:59 18:59 Intake Total Output Total Balance - Medications Medications: Current Medications Acetaminophen (Tylenol 325mg Tab) 650 mg PO Q6H PRN PRN Reason: Fever >100.4 F Last Admin: 07/04/18 10:16 Dose: 650 mg Enoxaparin Sodium (Lovenox) 30 mg SC DAILY [facility]; Protocol Last Admin: 07/05/18 10:06 Dose: 30 mg Metronidazole (Flagyl) 500 mg in 100 mls @ 100 mls/hr IVPB Q8 [facility]; Protocol Last Admin: 07/05/18 14:30 Dose: 100 mls/hr Levalbuterol HCl (Xopenex) 1.25 mg IH TIDRESP [facility] Last Admin: 07/05/18 13:04 Dose: 1.25 mg Metoprolol Succinate (Toprol Xl) 25 mg PO BRK [facility] Last Admin: 07/05/18 08:22 Dose: 25 mg Nystatin (Nystop Topical Powder) 1 gm TOP BID [facility] Ondansetron HCl (Zofran Inj) 4 mg IVP Q6H PRN PRN Reason: Nausea/Vomiting Pantoprazole Sodium (Protonix Inj) 40 mg IVP DAILY [facility] Last Admin: 07/05/18 10:06 Dose: 40 mg Vancomycin HCl (Vancocin 25 Mg/Ml (Oral Use)) 250 mg PO QID [facility]; Protocol Last Admin: 07/05/18 14:30 Dose: 250 mg Verapamil HCl (Calan Tab) 40 mg PO Q8 [facility] Last Admin: 07/05/18 14:29 Dose: 40 mg Zolpidem Tartrate (Ambien) 5 mg PO HS PRN; Protocol PRN Reason: Insomnia Last Admin: 07/03/18 20:58 Dose: 5 mg - Labs Labs: 07/05/18 07:00 07/05/18 07:00 PT 13.9 SECONDS (9.4-12.5) H 07/01/18 01:30 INR 1.21 07/01/18 01:30 APTT 33.6 Seconds (25.1-36.5) 07/01/18 01:30 - Constitutional Appears: No Acute Distress - Head Exam Head Exam: ATRAUMATIC, NORMOCEPHALIC - Eye Exam Eye Exam: EOMI, Normal appearance - ENT Exam ENT Exam: Mucous Membranes Moist - Respiratory Exam Respiratory Exam: NORMAL BREATHING PATTERN - Cardiovascular Exam Cardiovascular Exam: +S1, +S2 - GI/Abdominal Exam GI & Abdominal Exam: Soft, Tenderness. absent: Firm, Guarding, Rigid - Neurological Exam Neurological Exam: Alert, Awake, Oriented x3 - Psychiatric Exam Psychiatric exam: Normal Mood - Skin Skin Exam: Dry, Intact, Warm Assessment and Plan - Assessment and Plan (Free Text) Assessment: 83F with pancolitis 2/2 Cdiff infection Plan: CLD IVF ABx per ID Continue pain control and antiemetics as needed Monitor AM labs Medical management per primary team Further recommendations per Dr. Alex Guo PGY3
[2018-07-05] MEDS: Sodium Chloride 0.9% 1,000 ML IV SCH (17:24)
[2018-07-05] MEDS: Nystatin 100,000 Units/gm Topical Pow(15 gm) TOP SCH (17:24)
--- NOTE | 2018-07-05 18:00 | PN ---
DATE: 07/05/2018 SUBJECTIVE: The patient is in bed. PHYSICAL EXAMINATION: VITAL SIGNS: Temperature is 97, blood pressure is 120/70, respiratory rate of 18. HEENT: Unremarkable. NECK: Supple. LUNGS: Decreased breath sounds. HEART: Normal S1, S2. ABDOMEN: Soft, nontender. LABORATORY EXAMINATION: Reveals a white count is down to 27,000, hemoglobin of 12. Chemistries are noted. Urinalysis is noted. Stool for occult blood is noted and negative. Stool for C. diff antigen and toxin are both positive. Blood cultures are negative. Urine cultures are negative. Review of orders reveals the patient to be on IV Flagyl and p.o. vancomycin. ASSESSMENT AND PLAN: An 83-year-old female who was seen earlier today, who continues to have diarrhea and who has a history of cerebral palsy, cerebrovascular accidents, rheumatoid arthritis, gastrointestinal bleed, admitted with sepsis with pseudomembranous colitis. On p.o. vancomycin and IV Flagyl, and we would complete at least 14 days of p.o. vancomycin. The patient continues to have diarrhea at this point. We will follow closely. Ziggy Mix MD
--- NOTE | 2018-07-05 20:11 | PN ---
DATE: 07/05/2018 SUBJECTIVE: The patient is 83-year-old, seen and examined, lying in bed, has some chest congestion. No shortness of breath. PHYSICAL EXAMINATION: VITAL SIGNS: She is afebrile, pulse 93, respirations 18, and blood pressure 128/73. LUNGS: Bilateral soft crackle in the upper lung region. HEART: S1 and S2 audible. ABDOMEN: Soft, nontender. No rebound. No guarding. NEUROLOGIC: She is awake, alert, oriented, and communicative. LABORATORY DATA: WBC is 27.5, hemoglobin 12.5, hematocrit 37.1, platelets of 91. Chemistry; sodium 145, potassium 3.9, chloride 122, CO2 20, BUN 18, creatinine 0.6, blood sugar of 106. Stool for C. diff is positive. ASSESSMENT AND PLAN: 1. Clostridium difficile colitis. 2. Leukocytosis secondary to Clostridium difficile. 3. History of cerebral palsy. 4. Cholelithiasis. 5. Hiatal hernia. PLAN: We will discontinue IV fluid. The patient's oral intake seems to be fair. Continue her on verapamil. She is on metronidazole. We will continue on DVT prophylaxis. She was given dose of Lasix by powder line repairer. Continue her on Protonix. She is on p.o. vancomycin also. Follow up CBC and CMP in a.m. Mi Solis MD
[2018-07-06] MEDS: metroNIDAZOLE IV 500 mg/100 ml 500 MG/100 ML BAG IVPB SCH ×3 (05:50→22:17)
[2018-07-06 07:11] LABS: BASO # 0.07 K/mm3 (0.0-2.0); BASO % 0.3 % (0.0-3.0); EOS # 0.9 (0.0-0.7); EOS % 3.9 % (1.5-5.0); GRAN # 18.57 (1.4-6.5); GRAN % 84.6 % (50.0-68.0); HEMOGLOBIN 12.1 g/dL (12.0-16.0); LYMPH # 1.2 (1.2-3.4); LYMPH % 5.6 % (22.0-35.0); MEAN CELL VOLUME 89.4 fl (80.0-105.0); MEAN CORPUSCULAR HGB CONC 33.5 g/dl (31.0-37.0); MEAN PLATELET VOLUME 10.4 fl (7.0-11.0); MONO # 1.2 (0.1-0.6); MONO % 5.6 % (1.0-6.0); RBC 4.04 10^6/uL (3.5-6.1); RED CELL DISTRIBUTION WIDTH 15.5 % (11.5-14.5)
[2018-07-06] MEDS: Levalbuterol 1.25 MG/3 ML Inhal Soln UD IH SCH ×3 (07:15→20:29)
[2018-07-06 07:33] LABS: ALB/GLOB RATIO 0.9 (1.1-1.8); ALBUMIN 2.4 g/dL (3.0-4.8); ALT/SGPT 30 U/L (7-56); AST/SGOT 28 U/L (14-36); BLOOD UREA NITROGEN 16 mg/dL (7-21); CALCIUM 7.9 mg/dL (8.4-10.5); GFR NON-AFRICAN AMERICAN > 60
--- NOTE | 2018-07-06 08:41 | PN ---
DATE: 07/04/2018 REASON FOR CONSULTATION AND FOLLOWUP: Atrial fibrillation, paroxysmal, new onset, converted to normal sinus, cerebral palsy, CVA, hypertension, borderline positive troponin. SUBJECTIVE: Patient denies any chest pain, shortness of breath, or any palpitation. This note is in addition to dictated by nurse practitioner. In summary, an 83-year-old female with past medical history transferred senior living resident, admitted with UTI, found to be AFib, borderline troponin positive, history of CVA, history of cerebral palsy. Initially patient was n.p.o., so IM medication was given. Patient had echocardiography done that revealed ejection fraction 65%, [id number] mitral regurgitation, [id number] tricuspid regurgitation, trace aortic regurgitation. Since the patient started p.o., we will start p.o. medication, verapamil 40 mg p.o. every 8 hours. Continue low dose beta-anneliese. We will follow with you. We will discontinue telemetry. Discharge planning. Overall, the patient is critical. Long-term prognosis is guarded. We will give 1 dose of K-rider, increase nutritional support, and start some DVT prophylaxis. Patient has a history of GI bleed, so patient was not on anticoagulation. Reassess if no further episode of bleeding. It is okay from GI, then we can consider Lovenox for DVT prophylaxis. because the patient has a history of GI bleed in the past. Thank you, Dr. Solis, for providing us the opportunity in taking care of the patient, Yessenia Faustin. Ren Mcdaniel MD
--- NOTE | 2018-07-06 08:43 | PN ---
DATE: 07/04/2018 SUBJECTIVE: The patient is 83 years old, seen and examined, looks better, screaming to get some food, tolerating full liquids. No nausea or vomiting, did have 2 loose bowel movements. PHYSICAL EXAMINATION VITAL SIGNS: Patient is afebrile, pulse 86, respirations 24, blood pressure 130/80. LUNGS: Bilateral fair airflow. No rhonchi or crackle. HEART: S1 and S2 audible. ABDOMEN: Soft, nontender. No rebound, no guarding. NEUROLOGIC: She is awake, alert, oriented. She has dysphagia. LABORATORY DATA: WBC 36.4, hemoglobin 12.7, hematocrit 37.1, platelets of 412. Chemistry: Sodium 144, potassium 3.6, chloride 119, CO2 of 15, BUN 26, creatinine 0.7, blood sugar of 140. Blood cultures are negative. Urine cultures are negative. ASSESSMENT: 1. Clostridium difficile colitis. 2. Chololithiasis. 3. History of hypertension. 4. Cerebral palsy. 5. Generalized osteoarthritis. 6. Bilateral pleural effusion. 7. Large hiatal hernia. PLAN: The patient is currently on antibiotics, she is on p.o. vancomycin. I will discontinue her steroids, continue nebulizer treatment, continue her on IV Flagyl. We will follow up the patient . Mi Solis MD
--- NOTE | 2018-07-06 08:54 | PN ---
DATE: 07/05/2018 This note is an addition to dictated by our nurse practitioner, Elsa De Leon. REASON FOR THE CONSULTATION AND FOLLOWUP: Cardiac evaluation; AFib with rapid rate, new onset; history of cerebral palsy; hypertension; CVA; GI bleed; urinary tract infection. Repeat EKG, the patient converted to normal sinus. The patient had echocardiography also done that revealed normal LV function, [id number] mitral and itjl-ar-[id number] tricuspid regurgitation, mild pulmonary hypertension. The patient has a history of cerebral palsy, history of CVA, history of GI bleed. RECOMMENDATIONS: Not a candidate for long-term anticoagulation. The patient also converted to normal sinus. Discontinue IV fluid. Continue verapamil 40 mg. Continue DVT prophylaxis. Increase the nutritional support. Continue metoprolol. Continue broad-spectrum antibiotic. Overall, the patient's condition is critical. Long-term prognosis is guarded. We will give 40 of Lasix IV one dose because the patient has scattered rales and rhonchi. We will get a chest x-ray. If remained stable, sign off soon and gland to follow p.r.n. Thank you, Dr. Solis, for providing us the opportunity in taking care of the patient, Yessenia Faustin. Ren Mcdaniel MD
--- NOTE | 2018-07-06 09:23 | CP.PCM.PN ---
Subjective - Date & Time of Evaluation Date of Evaluation: 07/06/18 Time of Evaluation: 09:13 - Subjective Subjective: General Surgery Dr. Johnson Pt S&E @bedside. no acute events overnight. pt has no complaints. denies F/C, N/V, abd pain. unsure if continued diarrhea. pt reports using diaper. tolerating diet. Objective - Vital Signs/Intake and Output Vital Signs (last 24 hours): Temp Pulse Resp BP Pulse Ox 98.4 F 81 20 135/78 95 07/06/18 06:00 07/06/18 06:38 07/06/18 06:00 07/06/18 06:38 07/06/18 06:00 Intake and Output: 07/06/18 07/06/18 06:59 18:59 Output Total 650 Balance -650 - Medications Medications: Current Medications Acetaminophen (Tylenol 325mg Tab) 650 mg PO Q6H PRN PRN Reason: Fever >100.4 F Last Admin: 07/05/18 22:03 Dose: 650 mg Enoxaparin Sodium (Lovenox) 30 mg SC DAILY [facility]; Protocol Last Admin: 07/05/18 10:06 Dose: 30 mg Metronidazole (Flagyl) 500 mg in 100 mls @ 100 mls/hr IVPB Q8 [facility]; Protocol Last Admin: 07/06/18 05:50 Dose: 100 mls/hr Levalbuterol HCl (Xopenex) 1.25 mg IH TIDRESP [facility] Last Admin: 07/06/18 07:15 Dose: 1.25 mg Metoprolol Succinate (Toprol Xl) 25 mg PO BRK [facility] Last Admin: 07/05/18 08:22 Dose: 25 mg Nystatin (Nystop Topical Powder) 1 gm TOP BID [facility] Last Admin: 07/05/18 17:24 Dose: 1 appl Ondansetron HCl (Zofran Inj) 4 mg IVP Q6H PRN PRN Reason: Nausea/Vomiting Pantoprazole Sodium (Protonix Inj) 40 mg IVP DAILY [facility] Last Admin: 07/05/18 10:06 Dose: 40 mg Vancomycin HCl (Vancocin 25 Mg/Ml (Oral Use)) 250 mg PO QID [facility]; Protocol Last Admin: 07/05/18 22:05 Dose: 250 mg Verapamil HCl (Calan Tab) 40 mg PO Q8 [facility] Last Admin: 07/06/18 06:38 Dose: 40 mg Zolpidem Tartrate (Ambien) 5 mg PO HS PRN; Protocol PRN Reason: Insomnia Last Admin: 07/05/18 22:05 Dose: 5 mg - Labs Labs: 07/06/18 06:30 07/06/18 06:30 PT 13.9 SECONDS (9.4-12.5) H 07/01/18 01:30 INR 1.21 07/01/18 01:30 APTT 33.6 Seconds (25.1-36.5) 07/01/18 01:30 - Constitutional Appears: Non-toxic, No Acute Distress, Chronically Ill - Head Exam Head Exam: NORMAL INSPECTION - Eye Exam Eye Exam: Normal appearance - ENT Exam ENT Exam: Mucous Membranes Moist - Respiratory Exam Respiratory Exam: NORMAL BREATHING PATTERN. absent: Accessory Muscle Use, Respiratory Distress - Cardiovascular Exam Cardiovascular Exam: absent: Bradycardia, Tachycardia - GI/Abdominal Exam GI & Abdominal Exam: Soft. absent: Distended, Guarding, Tenderness, Rebound - Extremities Exam Extremities Exam: Normal Inspection - Neurological Exam Neurological Exam: Alert, Awake - Psychiatric Exam Psychiatric exam: Normal Affect, Normal Mood - Skin Skin Exam: Dry, Intact, Normal Color, Warm Assessment and Plan - Assessment and Plan (Free Text) Assessment: 83 y/o F w/ C. diff colitis and improving leukocytosis Plan: - ADAT - PT/OT - cont IV/PO/MS Abx - f/u GI recs - cont medical management Pt discussed w/ Dr. Alex Gooden DO PGY3
[2018-07-06] MEDS: Nystatin 100,000 Units/gm Topical Pow(15 gm) TOP SCH ×2 (10:00→18:25)
[2018-07-06] MEDS: Enoxaparin 30 mg Syringe SC SCH (10:21)
[2018-07-06] MEDS: Metoprolol Succinate 25 mg XL Tab PO SCH (10:21)
[2018-07-06] MEDS: Vancomycin 25 MG/ML PO SCH ×4 (10:22→22:18)
--- NOTE | 2018-07-06 10:23 | CP.PCM.PN ---
<Khari Wiley - Last Filed: 07/06/18 10:19> Subjective - Date & Time of Evaluation Date of Evaluation: 07/06/18 Time of Evaluation: 10:19 - Subjective Subjective: PGY-2 GI progress note for Dr Grey No acute events overnight. Appeared comfortable. Unsure if she had diarrhea - wearing diaper. Respiration was easy but labored. Diet was advanced by surgery. Objective - Vital Signs/Intake and Output Vital Signs (last 24 hours): Temp Pulse Resp BP Pulse Ox 98.4 F 81 20 135/78 95 07/06/18 06:00 07/06/18 06:38 07/06/18 06:00 07/06/18 06:38 07/06/18 06:00 Intake and Output: 07/06/18 07/06/18 06:59 18:59 Output Total 650 Balance -650 - Medications Medications: Current Medications Acetaminophen (Tylenol 325mg Tab) 650 mg PO Q6H PRN PRN Reason: Fever >100.4 F Last Admin: 07/05/18 22:03 Dose: 650 mg Enoxaparin Sodium (Lovenox) 30 mg SC DAILY [facility]; Protocol Last Admin: 07/05/18 10:06 Dose: 30 mg Metronidazole (Flagyl) 500 mg in 100 mls @ 100 mls/hr IVPB Q8 [facility]; Protocol Last Admin: 07/06/18 05:50 Dose: 100 mls/hr Levalbuterol HCl (Xopenex) 1.25 mg IH TIDRESP [facility] Last Admin: 07/06/18 07:15 Dose: 1.25 mg Metoprolol Succinate (Toprol Xl) 25 mg PO BRK [facility] Last Admin: 07/05/18 08:22 Dose: 25 mg Nystatin (Nystop Topical Powder) 1 gm TOP BID [facility] Last Admin: 07/05/18 17:24 Dose: 1 appl Ondansetron HCl (Zofran Inj) 4 mg IVP Q6H PRN PRN Reason: Nausea/Vomiting Pantoprazole Sodium (Protonix Inj) 40 mg IVP DAILY [facility] Last Admin: 07/05/18 10:06 Dose: 40 mg Vancomycin HCl (Vancocin 25 Mg/Ml (Oral Use)) 250 mg PO QID [facility]; Protocol Last Admin: 07/05/18 22:05 Dose: 250 mg Verapamil HCl (Calan Tab) 40 mg PO Q8 [facility] Last Admin: 07/06/18 06:38 Dose: 40 mg Zolpidem Tartrate (Ambien) 5 mg PO HS PRN; Protocol PRN Reason: Insomnia Last Admin: 07/05/18 22:05 Dose: 5 mg - Labs Labs: 07/06/18 06:30 07/06/18 06:30 PT 13.9 SECONDS (9.4-12.5) H 07/01/18 01:30 INR 1.21 07/01/18 01:30 APTT 33.6 Seconds (25.1-36.5) 07/01/18 01:30 - Additional Findings Additional findings: - Constitutional Appears: Well, Non-toxic, No Acute Distress - Head Exam Head Exam: ATRAUMATIC, NORMAL INSPECTION - Eye Exam Eye Exam: EOMI, Normal appearance, PERRL. absent: Scleral icterus - ENT Exam ENT Exam: Mucous Membranes Moist - Respiratory Exam Respiratory Exam: Rhonchi. absent: Clear to Auscultation Bilateral, Rales, Wheezes - Cardiovascular Exam Cardiovascular Exam: Tachy, IRREGULAR RHYTHM, +S1, +S2, Systolic Murmur - GI/Abdominal Exam GI & Abdominal Exam: Normal Bowel Sounds, Soft, Tenderness. absent: Distended, Firm, Guarding, Hernia - Rectal Exam Additional comments: rectal performed by ED physician showed occult blood - Extremities Exam Additional comments: Positive for contractures. Stigmata of cerebral palsy. rheumatoid palsy of hands/wrists - Neurological Exam Neurological exam: Alert, CN II-XII Intact, Oriented x3 - Skin Skin Exam: Normal Color, Warm Assessment and Plan - Assessment and Plan (Free Text) Plan: Mrs Faustin is a 83 year old totally dependent female, who's past medical history includes GI bleed, cerebral palsy, hypertension, and CVA, presents to the emergency department from [facility] for evaluation of fever and decrease urine output: #C. Diff Colitis -most prominent in right upper quadrant, also with fever and leukocytosis and hypotension -must rule out psuedomembranous colitis -cdiff antigen and toxin positive -abdominal ultrasound 07/01 * gallstones, collapsed gallbladder, gallbladder wall edema, no sonographic flanagan's sign or pericholecystic fluid, common bile duct measures 14mm with no stones -CT abd/pelvis po contrast 07/01 * mural thickening throughout colon consistent with colitis most severe in sigmoid, large hiatal hernia, mural thickening in herniated stomach consistent with gastritis -biliary hida scan 07/01 * normal -Abd xray 07/03 * mucosal edema in descending colon -MRCP 07/03 * gallstones. CBD 13mm. NO obvious choledocolithiasis. * No recommendations for ERCP. Possible pancreas protocol CT -on metronidazole iv 500mg q8h and vanco 250mg po qid -diet advanced to heart healthy diet today -blood and urine cx negative up to date Seen and discussed with Dr Grey. <Erika Grey V - Last Filed: 07/06/18 23:53> Objective - Vital Signs/Intake and Output Vital Signs (last 24 hours): Temp Pulse Resp BP Pulse Ox 97 F L 88 18 128/68 98 07/06/18 22:38 07/06/18 22:38 07/06/18 22:38 07/06/18 22:38 07/06/18 22:38 Intake and Output: 07/06/18 07/07/18 18:59 06:59 Intake Total 240 Output Total 200 Balance -200 240 - Medications Medications: Current Medications Acetaminophen (Tylenol 325mg Tab) 650 mg PO Q6H PRN PRN Reason: Fever >100.4 F Last Admin: 07/06/18 22:23 Dose: 650 mg Enoxaparin Sodium (Lovenox) 30 mg SC DAILY [facility]; Protocol Last Admin: 07/06/18 10:21 Dose: 30 mg Furosemide (Lasix) 40 mg PO DAILY [facility] Metronidazole (Flagyl) 500 mg in 100 mls @ 100 mls/hr IVPB Q8 [facility]; Protocol Last Admin: 07/06/18 22:17 Dose: 100 mls/hr Levalbuterol HCl (Xopenex) 1.25 mg IH TIDRESP [facility] Last Admin: 07/06/18 20:29 Dose: 1.25 mg Metoprolol Succinate (Toprol Xl) 25 mg PO BRK [facility] Last Admin: 07/06/18 10:21 Dose: 25 mg Nystatin (Nystop Topical Powder) 1 gm TOP BID [facility] Last Admin: 07/06/18 18:25 Dose: 1 appl Ondansetron HCl (Zofran Inj) 4 mg IVP Q6H PRN PRN Reason: Nausea/Vomiting Pantoprazole Sodium (Protonix Ec Tab) 40 mg PO 0600 [facility] Vancomycin HCl (Vancocin 25 Mg/Ml (Oral Use)) 250 mg PO QID [facility]; Protocol Last Admin: 07/06/18 22:18 Dose: 250 mg Verapamil HCl (Calan Tab) 40 mg PO Q8 [facility] Last Admin: 07/06/18 22:17 Dose: 40 mg Zolpidem Tartrate (Ambien) 5 mg PO HS PRN; Protocol PRN Reason: Insomnia Last Admin: 07/06/18 22:24 Dose: 5 mg - Labs Labs: 07/06/18 06:30 07/06/18 06:30 PT 13.9 SECONDS (9.4-12.5) H 07/01/18 01:30 INR 1.21 07/01/18 01:30 APTT 33.6 Seconds (25.1-36.5) 07/01/18 01:30 Attending/Attestation - Attestation I have personally seen and examined this patient.: Yes I have fully participated in the care of the patient.: Yes I have reviewed all pertinent clinical information, including history, physical exam and plan: Yes Notes (Text): p 07/06/18 23:53
[2018-07-06] MEDS ORDERED: Dextrose 50% SYRINGE Inj (50 ml) ONE (16:13)
--- NOTE | 2018-07-06 18:51 | CP.PCM.PN ---
Subjective - Date & Time of Evaluation Date of Evaluation: 07/06/18 Time of Evaluation: 10:45 - Subjective Subjective: No fevers, not in distress, afebrile. Objective - Vital Signs/Intake and Output Vital Signs (last 24 hours): Temp Pulse Resp BP Pulse Ox 98 F 91 H 24 150/79 89 L 07/06/18 14:00 07/06/18 14:00 07/06/18 14:00 07/06/18 14:00 07/06/18 14:00 Intake and Output: 07/06/18 07/06/18 06:59 18:59 Output Total 650 200 Balance -650 -200 - Medications Medications: Current Medications Acetaminophen (Tylenol 325mg Tab) 650 mg PO Q6H PRN PRN Reason: Fever >100.4 F Last Admin: 07/05/18 22:03 Dose: 650 mg Enoxaparin Sodium (Lovenox) 30 mg SC DAILY [facility]; Protocol Last Admin: 07/06/18 10:21 Dose: 30 mg Furosemide (Lasix) 40 mg PO DAILY [facility] Metronidazole (Flagyl) 500 mg in 100 mls @ 100 mls/hr IVPB Q8 [facility]; Protocol Last Admin: 07/06/18 15:03 Dose: 100 mls/hr Levalbuterol HCl (Xopenex) 1.25 mg IH TIDRESP [facility] Last Admin: 07/06/18 13:09 Dose: 1.25 mg Metoprolol Succinate (Toprol Xl) 25 mg PO BRK [facility] Last Admin: 07/06/18 10:21 Dose: 25 mg Nystatin (Nystop Topical Powder) 1 gm TOP BID [facility] Last Admin: 07/05/18 17:24 Dose: 1 appl Ondansetron HCl (Zofran Inj) 4 mg IVP Q6H PRN PRN Reason: Nausea/Vomiting Pantoprazole Sodium (Protonix Inj) 40 mg IVP DAILY [facility] Last Admin: 07/06/18 10:21 Dose: 40 mg Vancomycin HCl (Vancocin 25 Mg/Ml (Oral Use)) 250 mg PO QID [facility]; Protocol Last Admin: 07/06/18 15:03 Dose: 250 mg Verapamil HCl (Calan Tab) 40 mg PO Q8 [facility] Last Admin: 07/06/18 15:03 Dose: 40 mg Zolpidem Tartrate (Ambien) 5 mg PO HS PRN; Protocol PRN Reason: Insomnia Last Admin: 07/05/18 22:05 Dose: 5 mg - Labs Labs: 07/06/18 06:30 07/06/18 06:30 PT 13.9 SECONDS (9.4-12.5) H 07/01/18 01:30 INR 1.21 07/01/18 01:30 APTT 33.6 Seconds (25.1-36.5) 07/01/18 01:30 - Constitutional Appears: Chronically Ill - Head Exam Head Exam: NORMAL INSPECTION - Respiratory Exam Respiratory Exam: Decreased Breath Sounds - Cardiovascular Exam Cardiovascular Exam: +S1, +S2 - GI/Abdominal Exam GI & Abdominal Exam: Soft. absent: Tenderness Assessment and Plan - Assessment and Plan (Free Text) Plan: Assessment Pseudomembranous colitis cerebral palsy CVA rheumatoid arthritis history of GI bleed Plan continue PO Vancomycin and IV flagyl day 5 for 10-14 days - if patient has no more diarrhea, may d/c IV flagyl will continue to monitor clinically
--- NOTE | 2018-07-06 20:17 | PN ---
DATE: 07/06/2018 REASON FOR CONSULTATION: Cardiac evaluation; atrial fibrillation with rapid rate, new onset; history of cerebral palsy; hypertension; CVA; GI bleed and urinary tract infection. Repeat EKG shows converted to normal sinus. SUBJECTIVE: The patient denies any chest pain, shortness of breath or any palpitation. PHYSICAL EXAMINATION GENERAL: Not in any apparent distress, restless. VITAL SIGNS: Temperature afebrile, heart rate 91, blood pressure 135/78. HEENT: PERRLA. Extraocular muscles are intact. NECK: Supple. No carotid bruits or thyromegaly. CHEST: Clear to auscultation. HEART: S1 and S2 regular. ABDOMEN: Soft. EXTREMITIES: Clubbing and cyanosis negative. LABORATORY DATA: WBC 22,000, hemoglobin 12.8, hematocrit 36.1, and platelet count 356. Chemistry shows sodium 140, potassium 3.8, chloride 101, carbon dioxide 19, anion gap of 9, BUN 16, and creatinine 0.7. Chest x-ray done yesterday, because it looked like the patient was congested and was getting IV fluid, shows minimal infiltrate in bases. No evidence of florid pulmonary edema or congestive heart failure. films under penetrated, questionable mild congestion, cannot say for sure, but no evidence of florid pulmonary edema. IMPRESSION: An 83-year-old female with past medical history significant for cerebral palsy, history of gastrointestinal bleed, history of cerebrovascular accident, admitted with urinary tract infection, briefly the patient went into atrial fibrillation. Also, the patient shows a troponin positive, asymptomatic. Echocardiography done that revealed normal left ventricular function, [id number] mitral regurgitation, [id number] tricuspid regurgitation, mild pulmonary hypertension. RECOMMENDATION: Not a candidate for long-term anticoagulation because the patient was converted to normal sinus, also the patient has a history of recent GI bleed. The patient is getting IV fluids, discontinued. Lasix was given. The patient was started on p.o. Verapamil. Continue p.o. Lasix. Increase nutritional support. Continue as mentioned Verapamil and continue DVT prophylaxis. Monitor H and H. Continue antibiotic. We will give p.o. Lasix 40 from tomorrow and will sign off, glad to follow p.r.n. We will sign off the case. CVA status is stable. No cardiac intervention is planned, though patient has a borderline troponin positive on admission, but stable and no ischemia on EKG, asymptomatic. Continue aggressive treatment for diarrhea, possible C. diff colitis. Like I said, we will sign off and glad to follow p.r.n. Thank you, Dr. Solis, for providing us the opportunity in taking care of the patient, Yessenia Faustin. Ren Mcdaniel MD
--- NOTE | 2018-07-06 23:26 | PN ---
DATE: SUBJECTIVE: The patient is an 83-year-old, seen and examined, looks much more comfortable, had semi-solid pasty bowel movement. No abdominal pain. No nausea or vomiting. No fever or chills. OBJECTIVE: VITAL SIGNS: She is afebrile, pulse 91, respirations 25, blood pressure 150/79. LUNGS: Bilateral fair airflow. No rhonchi or crackles. HEART: S1 and S2 audible. ABDOMEN: Soft, nontender. No rebound. No guarding. NEUROLOGIC: The patient is awake and alert, communicate, dysphagia. LABORATORY DATA: WBC is 22, hemoglobin 12, hematocrit 36, platelets of 356. Chemistry; sodium 141, potassium 3.8, chloride 117, CO2 of 19, BUN 16, creatinine 0.6, blood sugar of 101. ASSESSMENT: 1. Clostridium difficile colitis. 2. Hypertension. 3. Cerebral palsy. 4. Generalized osteoarthritis. PLAN: Currently, the patient is on p.o. vancomycin and she is getting IV metronidazole. She is off of IV fluid. She is tolerating food. We will follow up electrolytes and CBC in a.m. If she has downward trend of white count, will be [facility] tomorrow. Mi Solis MD
[2018-07-07] MEDS: metroNIDAZOLE IV 500 mg/100 ml 500 MG/100 ML BAG IVPB SCH ×3 (05:23→22:08)
[2018-07-07] MEDS: Pantoprazole 40 mg EC Tab PO SCH (05:25)
[2018-07-07 07:10] LABS: HEMOGLOBIN 11.6 g/dL (12.0-16.0); MEAN CELL VOLUME 89.4 fl (80.0-105.0); MEAN CORPUSCULAR HGB CONC 33.5 g/dl (31.0-37.0); MEAN PLATELET VOLUME 10.4 fl (7.0-11.0); RBC 3.87 10^6/uL (3.5-6.1); RED CELL DISTRIBUTION WIDTH 15.5 % (11.5-14.5); WHITE BLOOD COUNT 20.3 10^3/uL (4.5-11.0)
[2018-07-07 07:11] LABS: BLOOD UREA NITROGEN 13 mg/dL (7-21); CALCIUM 7.6 mg/dL (8.4-10.5); GFR NON-AFRICAN AMERICAN > 60
[2018-07-07] MEDS: Levalbuterol 1.25 MG/3 ML Inhal Soln UD IH SCH ×3 (07:23→20:43)
[2018-07-07] MEDS ORDERED: Potassium Chloride 20 mEq ER Tab PO ONE (07:39)
--- NOTE | 2018-07-07 07:44 | CP.PCM.PN ---
<Norma Rios - Last Filed: 07/07/18 12:23> Subjective - Date & Time of Evaluation Date of Evaluation: 07/07/18 Time of Evaluation: 07:00 - Subjective Subjective: Infectious Disease Progress Note for Sandra Boyce PGY3 Patient seen and examined at bedside. There were no acute overnight events as per nursing staff. Patient is afebrile at this time. She continues to have diarrhea. Objective - Vital Signs/Intake and Output Vital Signs (last 24 hours): Temp Pulse Resp BP Pulse Ox 97 F L 88 18 126/68 98 07/06/18 22:38 07/06/18 22:38 07/06/18 22:38 07/07/18 05:23 07/06/18 22:38 Intake and Output: 07/07/18 07/07/18 06:59 18:59 Intake Total 540 Output Total 100 Balance 440 - Medications Medications: Current Medications Acetaminophen (Tylenol 325mg Tab) 650 mg PO Q6H PRN PRN Reason: Fever >100.4 F Last Admin: 07/06/18 22:23 Dose: 650 mg Enoxaparin Sodium (Lovenox) 30 mg SC DAILY [facility]; Protocol Last Admin: 07/06/18 10:21 Dose: 30 mg Furosemide (Lasix) 40 mg PO DAILY [facility] Metronidazole (Flagyl) 500 mg in 100 mls @ 100 mls/hr IVPB Q8 [facility]; Protocol Last Admin: 07/07/18 05:23 Dose: 100 mls/hr Levalbuterol HCl (Xopenex) 1.25 mg IH TIDRESP [facility] Last Admin: 07/07/18 07:23 Dose: 1.25 mg Metoprolol Succinate (Toprol Xl) 25 mg PO BRK [facility] Last Admin: 07/06/18 10:21 Dose: 25 mg Nystatin (Nystop Topical Powder) 1 gm TOP BID [facility] Last Admin: 07/06/18 18:25 Dose: 1 appl Ondansetron HCl (Zofran Inj) 4 mg IVP Q6H PRN PRN Reason: Nausea/Vomiting Pantoprazole Sodium (Protonix Ec Tab) 40 mg PO 0600 [facility] Last Admin: 07/07/18 05:25 Dose: 40 mg Potassium Chloride (K-Dur 20 Meq Er Tab) 40 meq PO ONCE ONE Stop: 07/07/18 07:40 Vancomycin HCl (Vancocin 25 Mg/Ml (Oral Use)) 250 mg PO QID [facility]; Protocol Last Admin: 07/06/18 22:18 Dose: 250 mg Verapamil HCl (Calan Tab) 40 mg PO Q8 [facility] Last Admin: 07/07/18 05:23 Dose: 40 mg Zolpidem Tartrate (Ambien) 5 mg PO HS PRN; Protocol PRN Reason: Insomnia Last Admin: 07/06/18 22:24 Dose: 5 mg - Labs Labs: 07/07/18 06:30 07/07/18 06:30 PT 13.9 SECONDS (9.4-12.5) H 07/01/18 01:30 INR 1.21 07/01/18 01:30 APTT 33.6 Seconds (25.1-36.5) 07/01/18 01:30 - Constitutional Appears: No Acute Distress, Chronically Ill - Head Exam Head Exam: ATRAUMATIC, NORMAL INSPECTION, NORMOCEPHALIC - Eye Exam Eye Exam: Normal appearance, PERRL Pupil Exam: NORMAL ACCOMODATION - ENT Exam ENT Exam: Mucous Membranes Moist - Neck Exam Neck Exam: Normal Inspection - Respiratory Exam Respiratory Exam: Clear to Ausculation Bilateral, NORMAL BREATHING PATTERN. absent: Rales, Rhonchi, Wheezes - Cardiovascular Exam Cardiovascular Exam: REGULAR RHYTHM, +S1, +S2. absent: Gallop, Rubs, Murmur - GI/Abdominal Exam GI & Abdominal Exam: Soft, Hyperactive Bowel Sounds. absent: Guarding, Rigid, Tenderness, Mass - Extremities Exam Extremities Exam: Normal Capillary Refill. absent: Calf Tenderness, Pedal Edema - Neurological Exam Neurological Exam: Alert, Awake, CN II-XII Intact - Psychiatric Exam Psychiatric exam: Normal Affect, Normal Mood - Skin Skin Exam: Dry, Warm Additional comments: excoriation on groin Assessment and Plan - Assessment and Plan (Free Text) Assessment: 1. Pseudomembranous colitis - first occurrence 2. Cerebral palsy 3. CVA 4. RA 5. Hx of GI bleed. Plan: Labs and imaging reviewed. Will continue PO Vancomycin day #6 out of 10-14 days. Will D/c Flagyl once diarrhea has resolved. Will continue to monitor clinically. Case seen, discussed and reviewed with Dr. Elfego Rios PGY3 <Jamel Telles - Last Filed: 07/07/18 16:38> Objective - Vital Signs/Intake and Output Vital Signs (last 24 hours): Temp Pulse Resp BP Pulse Ox 98 F 81 19 113/61 94 L 07/07/18 14:00 07/07/18 14:00 07/07/18 14:00 07/07/18 14:00 07/07/18 14:00 Intake and Output: 07/07/18 07/07/18 06:59 18:59 Intake Total 540 Output Total 100 Balance 440 - Medications Medications: Current Medications Acetaminophen (Tylenol 325mg Tab) 650 mg PO Q6H PRN PRN Reason: Fever >100.4 F Last Admin: 07/07/18 11:00 Dose: 650 mg Enoxaparin Sodium (Lovenox) 30 mg SC DAILY [facility]; Protocol Last Admin: 07/07/18 10:59 Dose: 30 mg Furosemide (Lasix) 40 mg PO DAILY [facility] Last Admin: 07/07/18 11:00 Dose: 40 mg Metronidazole (Flagyl) 500 mg in 100 mls @ 100 mls/hr IVPB Q8 [facility]; Protocol Last Admin: 07/07/18 05:23 Dose: 100 mls/hr Levalbuterol HCl (Xopenex) 1.25 mg IH TIDRESP [facility] Last Admin: 07/07/18 13:11 Dose: 1.25 mg Metoprolol Succinate (Toprol Xl) 25 mg PO BRK [facility] Last Admin: 07/07/18 11:00 Dose: 25 mg Nystatin (Nystop Topical Powder) 1 gm TOP BID [facility] Last Admin: 07/07/18 11:01 Dose: 1 appl Ondansetron HCl (Zofran Inj) 4 mg IVP Q6H PRN PRN Reason: Nausea/Vomiting Pantoprazole Sodium (Protonix Ec Tab) 40 mg PO 0600 [facility] Last Admin: 07/07/18 05:25 Dose: 40 mg Vancomycin HCl (Vancocin 25 Mg/Ml (Oral Use)) 250 mg PO QID [facility]; Protocol Last Admin: 07/07/18 10:58 Dose: 250 mg Verapamil HCl (Calan Tab) 40 mg PO Q8 [facility] Last Admin: 07/07/18 05:23 Dose: 40 mg Zolpidem Tartrate (Ambien) 5 mg PO HS PRN; Protocol PRN Reason: Insomnia Last Admin: 07/06/18 22:24 Dose: 5 mg - Labs Labs: 07/07/18 06:30 07/07/18 06:30 PT 13.9 SECONDS (9.4-12.5) H 07/01/18 01:30 INR 1.21 07/01/18 01:30 APTT 33.6 Seconds (25.1-36.5) 07/01/18 01:30 Assessment and Plan - Assessment and Plan (Free Text) Plan: Infectious Diseases Attending Physician Attestation Patient seen and examined, discussed with medical pathology teacher. I have reviewed the patient's history of present illness, past medical, family and social histories, personal history, physical exam, lab findings and imaging studies. I agree with the above findings, assessment and plan. In addition, will complete 10-14 days of IV Flagyl and PO Vancomycin for pseudomembranous colitis.
--- NOTE | 2018-07-07 10:57 | CP.PCM.PN ---
<Khari Wiley - Last Filed: 07/07/18 10:55> Subjective - Date & Time of Evaluation Date of Evaluation: 07/07/18 Time of Evaluation: 10:55 - Subjective Subjective: PGY-2 GI progress note for Dr Grey No acute events overnight. Appeared comfortable. Unsure if she had diarrhea - wearing diaper. Respiration was easy but labored. Tolerating solid foods. Objective - Vital Signs/Intake and Output Vital Signs (last 24 hours): Temp Pulse Resp BP Pulse Ox 98.4 F 78 18 130/82 95 07/07/18 06:00 07/07/18 06:00 07/07/18 06:00 07/07/18 06:00 07/07/18 06:00 Intake and Output: 07/07/18 07/07/18 06:59 18:59 Intake Total 540 Output Total 100 Balance 440 - Medications Medications: Current Medications Acetaminophen (Tylenol 325mg Tab) 650 mg PO Q6H PRN PRN Reason: Fever >100.4 F Last Admin: 07/06/18 22:23 Dose: 650 mg Enoxaparin Sodium (Lovenox) 30 mg SC DAILY [facility]; Protocol Last Admin: 07/06/18 10:21 Dose: 30 mg Furosemide (Lasix) 40 mg PO DAILY [facility] Metronidazole (Flagyl) 500 mg in 100 mls @ 100 mls/hr IVPB Q8 [facility]; Protocol Last Admin: 07/07/18 05:23 Dose: 100 mls/hr Levalbuterol HCl (Xopenex) 1.25 mg IH TIDRESP [facility] Last Admin: 07/07/18 07:23 Dose: 1.25 mg Metoprolol Succinate (Toprol Xl) 25 mg PO BRK [facility] Last Admin: 07/06/18 10:21 Dose: 25 mg Nystatin (Nystop Topical Powder) 1 gm TOP BID [facility] Last Admin: 07/06/18 18:25 Dose: 1 appl Ondansetron HCl (Zofran Inj) 4 mg IVP Q6H PRN PRN Reason: Nausea/Vomiting Pantoprazole Sodium (Protonix Ec Tab) 40 mg PO 0600 [facility] Last Admin: 07/07/18 05:25 Dose: 40 mg Vancomycin HCl (Vancocin 25 Mg/Ml (Oral Use)) 250 mg PO QID [facility]; Protocol Last Admin: 07/06/18 22:18 Dose: 250 mg Verapamil HCl (Calan Tab) 40 mg PO Q8 [facility] Last Admin: 07/07/18 05:23 Dose: 40 mg Zolpidem Tartrate (Ambien) 5 mg PO HS PRN; Protocol PRN Reason: Insomnia Last Admin: 07/06/18 22:24 Dose: 5 mg - Labs Labs: 07/07/18 06:30 07/07/18 06:30 PT 13.9 SECONDS (9.4-12.5) H 07/01/18 01:30 INR 1.21 07/01/18 01:30 APTT 33.6 Seconds (25.1-36.5) 07/01/18 01:30 - Additional Findings Additional findings: - Constitutional Appears: Well, Non-toxic, No Acute Distress - Head Exam Head Exam: ATRAUMATIC, NORMAL INSPECTION - Eye Exam Eye Exam: EOMI, Normal appearance, PERRL. absent: Scleral icterus - ENT Exam ENT Exam: Mucous Membranes Moist - Respiratory Exam Respiratory Exam: Rhonchi. absent: Clear to Auscultation Bilateral, Rales, Whe ezes - Cardiovascular Exam Cardiovascular Exam: Tachy, IRREGULAR RHYTHM, +S1, +S2, Systolic Murmur - GI/Abdominal Exam GI & Abdominal Exam: Normal Bowel Sounds, Soft, Tenderness. absent: Distended, Firm, Guarding, Hernia - Extremities Exam Additional comments: Positive for contractures. Stigmata of cerebral palsy. rheumatoid palsy of hands/wrists - Neurological Exam Neurological exam: Alert, CN II-XII Intact, Oriented x3 - Skin Skin Exam: Normal Color, Warm Assessment and Plan - Assessment and Plan (Free Text) Plan: Mrs Faustin is a 83 year old totally dependent female, who's past medical history includes GI bleed, cerebral palsy, hypertension, and CVA, presents to the emergency department from long-term for evaluation of fever and decrease urine output: #C. Diff Colitis # Psuedomembranous Colitis -most prominent in right upper quadrant, also with fever and leukocytosis and hypotension -cdiff antigen and toxin positive -abdominal ultrasound 07/01 * gallstones, collapsed gallbladder, gallbladder wall edema, no sonographic flanagan's sign or pericholecystic fluid, common bile duct measures 14mm with no stones -CT abd/pelvis po contrast 07/01 * mural thickening throughout colon consistent with colitis most severe in sigmoid, large hiatal hernia, mural thickening in herniated stomach consistent with gastritis -biliary hida scan 07/01 * normal -Abd xray 07/03 * mucosal edema in descending colon -MRCP 07/03 * gallstones. CBD 13mm. NO obvious choledocolithiasis. * No recommendations for ERCP. Possible pancreas protocol CT -on metronidazole iv 500mg q8h and vanco 250mg po qid -diet advanced to heart healthy diet today -blood and urine cx negative up to date Seen and discussed with Dr Grey. <Erika Grey V - Last Filed: 07/07/18 19:31> Objective - Vital Signs/Intake and Output Vital Signs (last 24 hours): Temp Pulse Resp BP Pulse Ox 98 F 81 19 113/61 94 L 07/07/18 14:00 07/07/18 14:00 07/07/18 14:00 07/07/18 14:00 07/07/18 14:00 Intake and Output: 07/07/18 07/08/18 18:59 06:59 Intake Total 360 Output Total 500 Balance -140 - Medications Medications: Current Medications Acetaminophen (Tylenol 325mg Tab) 650 mg PO Q6H PRN PRN Reason: Fever >100.4 F Last Admin: 07/07/18 11:00 Dose: 650 mg Enoxaparin Sodium (Lovenox) 30 mg SC DAILY [facility]; Protocol Last Admin: 07/07/18 10:59 Dose: 30 mg Furosemide (Lasix) 40 mg PO DAILY [facility] Last Admin: 07/07/18 11:00 Dose: 40 mg Metronidazole (Flagyl) 500 mg in 100 mls @ 100 mls/hr IVPB Q8 [facility]; Protocol Last Admin: 07/07/18 16:17 Dose: 100 mls/hr Levalbuterol HCl (Xopenex) 1.25 mg IH TIDRESP [facility] Last Admin: 07/07/18 13:11 Dose: 1.25 mg Metoprolol Succinate (Toprol Xl) 25 mg PO BRK [facility] Last Admin: 07/07/18 11:00 Dose: 25 mg Nystatin (Nystop Topical Powder) 1 gm TOP BID [facility] Last Admin: 07/07/18 17:04 Dose: 1 appl Ondansetron HCl (Zofran Inj) 4 mg IVP Q6H PRN PRN Reason: Nausea/Vomiting Pantoprazole Sodium (Protonix Ec Tab) 40 mg PO 0600 [facility] Last Admin: 07/07/18 05:25 Dose: 40 mg Vancomycin HCl (Vancocin 25 Mg/Ml (Oral Use)) 250 mg PO QID [facility]; Protocol Last Admin: 07/07/18 17:05 Dose: Not Given Verapamil HCl (Calan Sr Tab) 180 mg PO DAILY [facility] Zolpidem Tartrate (Ambien) 5 mg PO HS PRN; Protocol PRN Reason: Insomnia Last Admin: 07/06/18 22:24 Dose: 5 mg - Labs Labs: 07/07/18 06:30 07/07/18 06:30 PT 13.9 SECONDS (9.4-12.5) H 07/01/18 01:30 INR 1.21 07/01/18 01:30 APTT 33.6 Seconds (25.1-36.5) 07/01/18 01:30 Attending/Attestation - Attestation I have personally seen and examined this patient.: Yes I have fully participated in the care of the patient.: Yes I have reviewed all pertinent clinical information, including history, physical exam and plan: Yes Notes (Text): This is an addendum to GI followup report dictated by the [facility]. The patient was seen and evaluated earlier. Medical records, lab studies, imagings were reviewed. Last 24 hours events reviewed. 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 Solis and Dr. Johnson 07/07/18 19:25
[2018-07-07] MEDS: Vancomycin 25 MG/ML PO SCH ×5 (10:58→22:09)
[2018-07-07] MEDS: Enoxaparin 30 mg Syringe SC SCH (10:59)
[2018-07-07] MEDS: Metoprolol Succinate 25 mg XL Tab PO SCH (11:00)
[2018-07-07] MEDS: Nystatin 100,000 Units/gm Topical Pow(15 gm) TOP SCH ×2 (11:01→17:04)
--- NOTE | 2018-07-07 23:05 | PN ---
DATE: 07/07/2018 SUBJECTIVE: The patient is 83 years old, seen and examined, lying in bed,seems to be comfortable, in no abdominal pain. Appetite is good. She had 3 loose bowel movements this morning. PHYSICAL EXAMINATION VITAL SIGNS: She is afebrile, pulse 81, respirations 19, blood pressure 130/61. LUNGS: Bilateral fair airflow. No rhonchi or crackles. HEART: S1 and S2, audible. ABDOMEN: Soft and nontender. No rebound. No guarding. NEUROLOGIC: The patient is awake, alert, and oriented, has dysphagia because of cerebral palsy. ASSESSMENT: 1. Clostridium difficile colitis, seems to be resolving. 2. Cerebral palsy. 3. Upper and lower extremity deformity. 4. Hypertension. PLAN: Currently, the patient is on verapamil. She is on metronidazole. Her potassium is being supplemented. Changes on her DVT prophylaxis. Protonix has been changed to p.o. also. She is on p.o. vancomycin, we will continue that. We will monitor her electrolytes and CBC, and once her diarrhea improves, we will make discharge planning. Mi Solis MD
[2018-07-08] MEDS: Pantoprazole 40 mg EC Tab PO SCH (05:13)
[2018-07-08] MEDS: metroNIDAZOLE IV 500 mg/100 ml 500 MG/100 ML BAG IVPB SCH ×3 (05:15→23:01)
[2018-07-08 06:45] LABS: ALB/GLOB RATIO 0.9 (1.1-1.8); ALBUMIN 2.2 g/dL (3.0-4.8); ALT/SGPT 30 U/L (7-56); AST/SGOT 21 U/L (14-36); BLOOD UREA NITROGEN 11 mg/dL (7-21); CALCIUM 7.4 mg/dL (8.4-10.5); GFR NON-AFRICAN AMERICAN > 60
[2018-07-08 07:08] LABS: BASO # 0.03 K/mm3 (0.0-2.0); BASO % 0.2 % (0.0-3.0); EOS # 0.6 (0.0-0.7); EOS % 3.4 % (1.5-5.0); GRAN # 14.77 (1.4-6.5); GRAN % 82.7 % (50.0-68.0); HEMOGLOBIN 11.5 g/dL (12.0-16.0); LYMPH # 1.2 (1.2-3.4); LYMPH % 6.9 % (22.0-35.0); MEAN CELL VOLUME 89.3 fl (80.0-105.0); MEAN CORPUSCULAR HEMOGLOBIN 29.9 pg (25.0-35.0); MEAN CORPUSCULAR HGB CONC 33.5 g/dl (31.0-37.0); MEAN PLATELET VOLUME 10.4 fl (7.0-11.0); MONO # 1.2 (0.1-0.6); MONO % 6.8 % (1.0-6.0); RBC 3.84 10^6/uL (3.5-6.1); RED CELL DISTRIBUTION WIDTH 15.5 % (11.5-14.5); WHITE BLOOD COUNT 17.9 10^3/uL (4.5-11.0)
[2018-07-08] MEDS: Levalbuterol 1.25 MG/3 ML Inhal Soln UD IH SCH ×2 (07:14→20:48)
--- NOTE | 2018-07-08 07:20 | CP.PCM.PN ---
<Norma Rios - Last Filed: 07/08/18 13:35> Subjective - Date & Time of Evaluation Date of Evaluation: 07/08/18 Time of Evaluation: 07:00 - Subjective Subjective: Infectious Disease Progress Note for Sandra Boyce PGY3 Patient seen and examined at bedside. There were no acute overnight events as per nursing staff. Patient still is having diarrhea, but remains afebrile. Objective - Vital Signs/Intake and Output Vital Signs (last 24 hours): Temp Pulse Resp BP Pulse Ox 98 F 80 18 116/64 95 07/07/18 22:35 07/07/18 22:35 07/07/18 22:35 07/07/18 22:35 07/07/18 22:35 Intake and Output: 07/08/18 07/08/18 06:59 18:59 Intake Total 360 Output Total 700 Balance -340 - Medications Medications: Current Medications Acetaminophen (Tylenol 325mg Tab) 650 mg PO Q6H PRN PRN Reason: Fever >100.4 F Last Admin: 07/07/18 11:00 Dose: 650 mg Enoxaparin Sodium (Lovenox) 30 mg SC DAILY [facility]; Protocol Last Admin: 07/07/18 10:59 Dose: 30 mg Furosemide (Lasix) 40 mg PO DAILY [facility] Last Admin: 07/07/18 11:00 Dose: 40 mg Metronidazole (Flagyl) 500 mg in 100 mls @ 100 mls/hr IVPB Q8 [facility]; Protocol Last Admin: 07/08/18 05:15 Dose: 100 mls/hr Levalbuterol HCl (Xopenex) 1.25 mg IH TIDRESP [facility] Last Admin: 07/08/18 07:14 Dose: 1.25 mg Metoprolol Succinate (Toprol Xl) 25 mg PO BRK [facility] Last Admin: 07/07/18 11:00 Dose: 25 mg Nystatin (Nystop Topical Powder) 1 gm TOP BID [facility] Last Admin: 07/07/18 17:04 Dose: 1 appl Ondansetron HCl (Zofran Inj) 4 mg IVP Q6H PRN PRN Reason: Nausea/Vomiting Pantoprazole Sodium (Protonix Ec Tab) 40 mg PO 0600 [facility] Last Admin: 07/08/18 05:13 Dose: 40 mg Vancomycin HCl (Vancocin 25 Mg/Ml (Oral Use)) 250 mg PO QID [facility]; Protocol Last Admin: 07/07/18 22:09 Dose: 250 mg Verapamil HCl (Calan Sr Tab) 180 mg PO DAILY [facility] Zolpidem Tartrate (Ambien) 5 mg PO HS PRN; Protocol PRN Reason: Insomnia Last Admin: 07/07/18 23:49 Dose: 5 mg - Labs Labs: 07/08/18 05:30 07/08/18 05:30 PT 13.9 SECONDS (9.4-12.5) H 07/01/18 01:30 INR 1.21 07/01/18 01:30 APTT 33.6 Seconds (25.1-36.5) 07/01/18 01:30 - Constitutional Appears: No Acute Distress, Chronically Ill - Head Exam Head Exam: ATRAUMATIC, NORMAL INSPECTION, NORMOCEPHALIC - Eye Exam Eye Exam: Normal appearance, PERRL Pupil Exam: NORMAL ACCOMODATION, PERRL - ENT Exam ENT Exam: Mucous Membranes Dry - Respiratory Exam Respiratory Exam: Clear to Ausculation Bilateral, NORMAL BREATHING PATTERN. absent: Rales, Rhonchi, Wheezes - Cardiovascular Exam Cardiovascular Exam: REGULAR RHYTHM, +S1, +S2. absent: Gallop, Rubs, Murmur - GI/Abdominal Exam GI & Abdominal Exam: Soft, Hyperactive Bowel Sounds. absent: Rigid, Tenderness, Mass, Rebound - Extremities Exam Extremities Exam: absent: Calf Tenderness, Pedal Edema - Neurological Exam Neurological Exam: Alert, Awake, CN II-XII Intact - Psychiatric Exam Psychiatric exam: Normal Affect, Normal Mood - Skin Skin Exam: Dry, Warm Assessment and Plan - Assessment and Plan (Free Text) Assessment: 1. Pseudomembranous colitis - first occurrence 2. Cerebral palsy 3. CVA 4. RA 5. Hx of GI bleed. Plan: Labs and imaging reviewed. Will increase dose of Vancomycin since she continues to have diarrhea. This is day #7 out of 10-14 days. Will continue Flagyl until diarrhea has resolved. Will obtain chest CT to rule out pneumonia. Will continue to monitor clinically. Case seen, discussed and reviewed with Dr. Elfego Rios PGY3 <Jamel Telles - Last Filed: 07/08/18 17:19> Objective - Vital Signs/Intake and Output Vital Signs (last 24 hours): Temp Pulse Resp BP Pulse Ox 97.6 F 92 H 20 130/63 91 L 07/08/18 14:00 07/08/18 14:00 07/08/18 14:00 07/08/18 14:00 07/08/18 14:00 Intake and Output: 07/08/18 07/08/18 06:59 18:59 Intake Total 360 Output Total 700 Balance -340 - Medications Medications: Current Medications Acetaminophen (Tylenol 325mg Tab) 650 mg PO Q6H PRN PRN Reason: Fever >100.4 F Last Admin: 07/07/18 11:00 Dose: 650 mg Enoxaparin Sodium (Lovenox) 30 mg SC DAILY [facility]; Protocol Last Admin: 07/08/18 10:36 Dose: 30 mg Furosemide (Lasix) 40 mg PO DAILY [facility] Last Admin: 07/08/18 10:36 Dose: 40 mg Metronidazole (Flagyl) 500 mg in 100 mls @ 100 mls/hr IVPB Q8 [facility]; Protocol Last Admin: 07/08/18 13:03 Dose: 100 mls/hr Levalbuterol HCl (Xopenex) 1.25 mg IH TIDRESP [facility] Last Admin: 07/08/18 07:14 Dose: 1.25 mg Metoprolol Succinate (Toprol Xl) 25 mg PO BRK [facility] Last Admin: 07/08/18 10:36 Dose: 25 mg Nystatin (Nystop Topical Powder) 1 gm TOP BID [facility] Last Admin: 07/08/18 10:41 Dose: 1 appl Ondansetron HCl (Zofran Inj) 4 mg IVP Q6H PRN PRN Reason: Nausea/Vomiting Pantoprazole Sodium (Protonix Ec Tab) 40 mg PO 0600 [facility] Last Admin: 07/08/18 05:13 Dose: 40 mg Vancomycin HCl (Vancocin 25 Mg/Ml (Oral Use)) 500 mg PO QID [facility]; Protocol Last Admin: 07/08/18 15:00 Dose: Not Given Verapamil HCl (Calan Sr Tab) 180 mg PO DAILY [facility] Last Admin: 07/08/18 10:36 Dose: 180 mg Zolpidem Tartrate (Ambien) 5 mg PO HS PRN; Protocol PRN Reason: Insomnia Last Admin: 07/07/18 23:49 Dose: 5 mg - Labs Labs: 07/08/18 05:30 07/08/18 05:30 PT 13.9 SECONDS (9.4-12.5) H 07/01/18 01:30 INR 1.21 07/01/18 01:30 APTT 33.6 Seconds (25.1-36.5) 07/01/18 01:30 Assessment and Plan - Assessment and Plan (Free Text) Plan: Infectious Diseases Attending Physician Attestation Patient seen and examined, discussed with medical physics researcher. I have reviewed the patient's history of present illness, past medical, family and social histories, personal history, physical exam, lab findings and imaging studies. I agree with the above findings, assessment and plan. In addition, will complete 10-14 days of IV Flagyl and PO Vancomycin for pseudomembranous colitis.
--- NOTE | 2018-07-08 09:36 | CP.PCM.PN ---
Subjective - Date & Time of Evaluation Date of Evaluation: 07/08/18 Time of Evaluation: 09:32 - Subjective Subjective: PGY-[address] GI progress note for Dr Grey No acute events overnight. Appeared comfortable. Denied diarrhea - wearing diaper. Respiration was easy and non-labored. Tolerating solid foods. Davis in place. Clinically much improved. Objective - Vital Signs/Intake and Output Vital Signs (last 24 hours): Temp Pulse Resp BP Pulse Ox 97.2 F L 75 20 121/67 94 L 07/08/18 06:00 07/08/18 06:00 07/08/18 06:00 07/08/18 06:00 07/08/18 06:00 Intake and Output: 07/08/18 07/08/18 06:59 18:59 Intake Total 360 Output Total 700 Balance -340 - Medications Medications: Current Medications Acetaminophen (Tylenol 325mg Tab) 650 mg PO Q6H PRN PRN Reason: Fever >100.4 F Last Admin: 07/07/18 11:00 Dose: 650 mg Enoxaparin Sodium (Lovenox) 30 mg SC DAILY [facility]; Protocol Last Admin: 07/07/18 10:59 Dose: 30 mg Furosemide (Lasix) 40 mg PO DAILY [facility] Last Admin: 07/07/18 11:00 Dose: 40 mg Metronidazole (Flagyl) 500 mg in 100 mls @ 100 mls/hr IVPB Q8 [facility]; Protocol Last Admin: 07/08/18 05:15 Dose: 100 mls/hr Levalbuterol HCl (Xopenex) 1.25 mg IH TIDRESP [facility] Last Admin: 07/08/18 07:14 Dose: 1.25 mg Metoprolol Succinate (Toprol Xl) 25 mg PO BRK [facility] Last Admin: 07/07/18 11:00 Dose: 25 mg Nystatin (Nystop Topical Powder) 1 gm TOP BID [facility] Last Admin: 07/07/18 17:04 Dose: 1 appl Ondansetron HCl (Zofran Inj) 4 mg IVP Q6H PRN PRN Reason: Nausea/Vomiting Pantoprazole Sodium (Protonix Ec Tab) 40 mg PO 0600 [facility] Last Admin: 07/08/18 05:13 Dose: 40 mg Vancomycin HCl (Vancocin 25 Mg/Ml (Oral Use)) 250 mg PO QID [facility]; Protocol Last Admin: 07/07/18 22:09 Dose: 250 mg Verapamil HCl (Calan Sr Tab) 180 mg PO DAILY [facility] Zolpidem Tartrate (Ambien) 5 mg PO HS PRN; Protocol PRN Reason: Insomnia Last Admin: 07/07/18 23:49 Dose: 5 mg - Labs Labs: 07/08/18 05:30 07/08/18 05:30 PT 13.9 SECONDS (9.4-12.5) H 07/01/18 01:30 INR 1.21 07/01/18 01:30 APTT 33.6 Seconds (25.1-36.5) 07/01/18 01:30 - Additional Findings Additional findings: - Constitutional Appears: Well, Non-toxic, No Acute Distress - Head Exam Head Exam: ATRAUMATIC, NORMAL INSPECTION - Eye Exam Eye Exam: EOMI, Normal appearance, PERRL. absent: Scleral icterus - ENT Exam ENT Exam: Mucous Membranes Moist - Respiratory Exam Respiratory Exam: Rhonchi. absent: Clear to Auscultation Bilateral, Rales, Wheezes - Cardiovascular Exam Cardiovascular Exam: Tachy, IRREGULAR RHYTHM, +S1, +S2, Systolic Murmur - GI/Abdominal Exam GI & Abdominal Exam: Normal Bowel Sounds, Soft, Tenderness. absent: Distended, Firm, Guarding, Hernia - Extremities Exam Additional comments: Positive for contractures. Stigmata of cerebral palsy. rheumatoid palsy of hands/wrists - Neurological Exam Neurological exam: Alert, CN II-XII Intact, Oriented x3 - Skin Skin Exam: Normal Color, Warm Assessment and Plan - Assessment and Plan (Free Text) Plan: Mrs Faustin is a 83 year old totally dependent female, who's past medical history includes GI bleed, cerebral palsy, hypertension, and CVA, presents to the emergency department from senior living for evaluation of fever and decrease urine output: #C. Diff Colitis # Psuedomembranous Colitis -most prominent in right upper quadrant, also with fever and leukocytosis and hypotension -cdiff antigen and toxin positive -abdominal ultrasound 07/01 * gallstones, collapsed gallbladder, gallbladder wall edema, no sonographic flanagan's sign or pericholecystic fluid, common bile duct measures 14mm with no stones -CT abd/pelvis po contrast 07/01 * mural thickening throughout colon consistent with colitis most severe in sigmo id, large hiatal hernia, mural thickening in herniated stomach consistent with gastritis -biliary hida scan 07/01 * normal -Abd xray 07/03 * mucosal edema in descending colon -MRCP 07/03 * gallstones. CBD 13mm. NO obvious choledocolithiasis. * No recommendations for ERCP. Possible pancreas protocol CT -on metronidazole iv 500mg q8h and vanco 250mg po qid -diet advanced to heart healthy diet today -blood and urine cx negative up to date #Dilated Common Bile Duct -Most likely diagnosis to be considered in her case for dilated CBD is ampullary stenosis however CT with pancreatic protocol can be more informative in view of her age and multiple comorbidities -defer CT with pancreatic protocol after Dr Grey discussed with Dr. Solis and Dr. Johnson #Paraesophageal Hernia -Large paraesophageal hernia with significant portion of the stomach in the chest Seen and discussed with Dr Grey.
[2018-07-08] MEDS: Vancomycin 25 MG/ML PO SCH ×5 (10:35→22:59)
[2018-07-08] MEDS: Metoprolol Succinate 25 mg XL Tab PO SCH (10:36)
[2018-07-08] MEDS: Verapamil 180 mg ER Tab PO SCH (10:36)
[2018-07-08] MEDS: Enoxaparin 30 mg Syringe SC SCH (10:36)
[2018-07-08] MEDS: Nystatin 100,000 Units/gm Topical Pow(15 gm) TOP SCH ×2 (10:41→17:52)
--- NOTE | 2018-07-08 14:41 | CT ---
Date of service: 07/08/2018 PROCEDURE: CT Chest without contrast HISTORY: RLL infiltrate COMPARISON: 07/01/2018 TECHNIQUE: Contiguous axial images were obtained through the chest without intravenous contrast enhancement. Sagittal and coronal reconstructions were performed. Radiation dose: Total exam DLP = 209.92 mGy-cm. This CT exam was performed using one or more of the following dose reduction techniques: Automated exposure control, adjustment of the mA and/or kV according to patient size, and/or use of iterative reconstruction technique. FINDINGS: LUNGS: Mild right upper lobe discoid atelectasis. MEDIASTINUM: Unremarkable thoracic aorta. No aneurysm. Normal sized heart. Main pulmonary artery unremarkable. No vascular congestion. No lymphadenopathy. Aortic calcifications. Dilated esophagus with large hiatal hernia. PLEURA: Large bilateral pleural effusions with associated compressive atelectasis at the lung bases. Findings worsened since prior examination. BONES: No fracture. No destructive lesion. UPPER ABDOMEN: Perihepatic ascites. OTHER FINDINGS: None. IMPRESSION: Mild right upper lobe discoid atelectasis. Large bilateral pleural effusions with associated compressive atelectasis at the lung bases. Findings worsened since prior examination.
--- NOTE | 2018-07-08 16:59 | PN ---
DATE: 07/08/2018 SUBJECTIVE: The patient is an 83-year-old, seen and examined, lying in bed, eating and tolerating, had two loose bowel movements since last night. Denies any abdominal pain. PHYSICAL EXAMINATION: VITAL SIGNS: She is afebrile, pulse 75, respirations 20, blood pressure 123/71. LUNGS: Bilateral fair airflow. No rhonchi or crackles. HEART: S1 and S2 audible. ABDOMEN: Soft and nontender. No rebound. No guarding. NEUROLOGICAL: The patient is awake, alert, oriented, communicative. LABORATORY AND DIAGNOSTIC DATA: WBC is 17.9, hemoglobin 11.5, hematocrit 34.3, platelet 380. Chemistry; sodium 140, potassium 3.2, chloride 112, CO2 of 21, BUN 11, creatinine 0.5, blood sugar of 93. Stool cultures are negative. Stool for C. diff is positive. X-ray of the chest done on 07/05/2018 shows minimal infiltrate in the right lower lobe. ASSESSMENT AND PLAN: We will order for CT scan of the chest to conform that she does not have pneumonia since she still has blood count, so we can give her coverage for pneumonia if it is necessary. Currently, she is on metronidazole and p.o. vancomycin, out-of-bed to chair. We will follow up her electrolyte and CBC, CMP in the a.m. Mi Solis MD
[2018-07-08] MEDS ORDERED: Alum-Mag Hydrox-Simethicone Susp (30 mL) PO ONE (20:07)
[2018-07-09] MEDS: metroNIDAZOLE IV 500 mg/100 ml 500 MG/100 ML BAG IVPB SCH ×3 (05:29→22:07)
[2018-07-09] MEDS: Pantoprazole 40 mg EC Tab PO SCH (05:29)
--- NOTE | 2018-07-09 06:54 | CP.PCM.PN ---
<Norma Rios - Last Filed: 07/09/18 12:18> Subjective - Date & Time of Evaluation Date of Evaluation: 07/09/18 Time of Evaluation: 07:00 - Subjective Subjective: Infectious Disease Progress Note for Sandra Boyce PGY3 Patient seen and examined at bedside. Patient had one episode of soft BM yesterday. She is resting comfortably in bed and is afebrile. Objective - Vital Signs/Intake and Output Vital Signs (last 24 hours): Temp Pulse Resp BP Pulse Ox 97.6 F 92 H 20 130/63 91 L 07/08/18 14:00 07/08/18 14:00 07/08/18 14:00 07/08/18 14:00 07/08/18 14:00 Intake and Output: 07/08/18 07/09/18 18:59 06:59 Output Total 200 Balance -200 - Medications Medications: Current Medications Acetaminophen (Tylenol 325mg Tab) 650 mg PO Q6H PRN PRN Reason: Fever >100.4 F Last Admin: 07/09/18 06:38 Dose: 650 mg Enoxaparin Sodium (Lovenox) 30 mg SC DAILY [facility]; Protocol Last Admin: 07/08/18 10:36 Dose: 30 mg Furosemide (Lasix) 40 mg PO DAILY [facility] Last Admin: 07/08/18 10:36 Dose: 40 mg Metronidazole (Flagyl) 500 mg in 100 mls @ 100 mls/hr IVPB Q8 [facility]; Protocol Last Admin: 07/09/18 05:29 Dose: 100 mls/hr Levalbuterol HCl (Xopenex) 1.25 mg IH TIDRESP [facility] Last Admin: 07/08/18 20:48 Dose: Not Given Metoprolol Succinate (Toprol Xl) 25 mg PO BRK [facility] Last Admin: 07/08/18 10:36 Dose: 25 mg Nystatin (Nystop Topical Powder) 1 gm TOP BID [facility] Last Admin: 07/08/18 17:52 Dose: 1 appl Ondansetron HCl (Zofran Inj) 4 mg IVP Q6H PRN PRN Reason: Nausea/Vomiting Pantoprazole Sodium (Protonix Ec Tab) 40 mg PO 0600 [facility] Last Admin: 07/09/18 05:29 Dose: 40 mg Vancomycin HCl (Vancocin 25 Mg/Ml (Oral Use)) 500 mg PO QID [facility]; Protocol Last Admin: 07/08/18 22:59 Dose: 500 mg Verapamil HCl (Calan Sr Tab) 180 mg PO DAILY [facility] Last Admin: 07/08/18 10:36 Dose: 180 mg Zolpidem Tartrate (Ambien) 5 mg PO HS PRN; Protocol PRN Reason: Insomnia Last Admin: 07/08/18 20:26 Dose: 5 mg - Labs Labs: 07/08/18 05:30 07/08/18 05:30 PT 13.9 SECONDS (9.4-12.5) H 07/01/18 01:30 INR 1.21 07/01/18 01:30 APTT 33.6 Seconds (25.1-36.5) 07/01/18 01:30 - Constitutional Appears: No Acute Distress, Chronically Ill - Head Exam Head Exam: ATRAUMATIC, NORMAL INSPECTION, NORMOCEPHALIC - Eye Exam Eye Exam: Normal appearance, PERRL Pupil Exam: NORMAL ACCOMODATION, PERRL - ENT Exam ENT Exam: Mucous Membranes Moist Additional comments: poor dentition - Respiratory Exam Respiratory Exam: Rales (bilaterally ), NORMAL BREATHING PATTERN. absent: Rhonchi, Wheezes, Respiratory Distress - Cardiovascular Exam Cardiovascular Exam: REGULAR RHYTHM, +S1, +S2. absent: Gallop, Rubs, Murmur - GI/Abdominal Exam GI & Abdominal Exam: Soft, Tenderness (LLQ), Normal Bowel Sounds. absent: Rigid, Mass, Rebound - Extremities Exam Extremities Exam: absent: Calf Tenderness, Pedal Edema - Neurological Exam Neurological Exam: Alert, Awake, CN II-XII Intact - Psychiatric Exam Psychiatric exam: Normal Mood - Skin Skin Exam: Dry, Warm Assessment and Plan - Assessment and Plan (Free Text) Assessment: 1. Pseudomembranous colitis - first occurrence 2. Bilateral pleural effusions with Atelectasis 3. Cerebral palsy 4. CVA 5. RA 6. Hx of GI bleed. Plan: Chest CT done which showed large bilateral pleural effusions with compressive atelectasis. Continue PO Vancomycin day #7 out of 10-14 days. Will d/c Flagyl once patient is having formed stool. Will continue to monitor clinically. Case seen, discussed and reviewed with Dr. Elfego Rios PGY3 <Jamel Telles S - Last Filed: 07/09/18 12:52> Objective - Vital Signs/Intake and Output Vital Signs (last 24 hours): Temp Pulse Resp BP Pulse Ox 98.2 F 100 H 188 H 131/61 91 L 07/09/18 06:00 07/09/18 10:11 07/09/18 06:00 07/09/18 10:11 07/09/18 06:00 Intake and Output: 07/09/18 07/09/18 06:59 18:59 Intake Total 120 Output Total 200 Balance -200 120 - Medications Medications: Current Medications Acetaminophen (Tylenol 325mg Tab) 650 mg PO Q6H PRN PRN Reason: Fever >100.4 F Last Admin: 07/09/18 06:38 Dose: 650 mg Enoxaparin Sodium (Lovenox) 30 mg SC DAILY [facility]; Protocol Last Admin: 07/09/18 10:07 Dose: 30 mg Furosemide (Lasix) 40 mg PO DAILY [facility] Last Admin: 07/09/18 10:06 Dose: 40 mg Metronidazole (Flagyl) 500 mg in 100 mls @ 100 mls/hr IVPB Q8 [facility]; Protocol Last Admin: 07/09/18 05:29 Dose: 100 mls/hr Levalbuterol HCl (Xopenex) 1.25 mg IH TIDRESP [facility] Last Admin: 07/09/18 07:21 Dose: 1.25 mg Metoprolol Succinate (Toprol Xl) 25 mg PO BRK [facility] Last Admin: 07/09/18 10:08 Dose: 25 mg Nystatin (Nystop Topical Powder) 1 gm TOP BID [facility] Last Admin: 07/08/18 17:52 Dose: 1 appl Ondansetron HCl (Zofran Inj) 4 mg IVP Q6H PRN PRN Reason: Nausea/Vomiting Pantoprazole Sodium (Protonix Ec Tab) 40 mg PO 0600 [facility] Last Admin: 07/09/18 05:29 Dose: 40 mg Potassium Chloride (K-Dur 20 Meq Er Tab) 40 meq PO ONCE ONE Stop: 07/09/18 14:01 Vancomycin HCl (Vancocin 25 Mg/Ml (Oral Use)) 500 mg PO QID [facility]; Protocol Last Admin: 07/09/18 10:09 Dose: 500 mg Verapamil HCl (Calan Sr Tab) 180 mg PO DAILY [facility] Last Admin: 07/09/18 10:11 Dose: 180 mg Zolpidem Tartrate (Ambien) 5 mg PO HS PRN; Protocol PRN Reason: Insomnia Last Admin: 07/08/18 20:26 Dose: 5 mg - Labs Labs: 07/09/18 07:00 07/09/18 07:00 PT 13.9 SECONDS (9.4-12.5) H 07/01/18 01:30 INR 1.21 07/01/18 01:30 APTT 33.6 Seconds (25.1-36.5) 07/01/18 01:30 Assessment and Plan - Assessment and Plan (Free Text) Plan: Infectious Diseases Attending Physician Attestation Patient seen and examined, discussed with medical records field technician. I have reviewed the patient's history of present illness, past medical, family and social histories, personal history, physical exam, lab findings and imaging studies. I agree with the above findings, assessment and plan. In addition, will complete 10-14 days of IV Flagyl and PO Vancomycin for pseudomembranous colitis. Diarrhea is slowly improving and if the stools are more formed, can d/c IV Flagyl.
[2018-07-09] MEDS: Levalbuterol 1.25 MG/3 ML Inhal Soln UD IH SCH ×3 (07:21→20:59)
[2018-07-09 07:44] LABS: HEMOGLOBIN 11.6 g/dL (12.0-16.0); MEAN CELL VOLUME 88.7 fl (80.0-105.0); MEAN CORPUSCULAR HEMOGLOBIN 30.4 pg (25.0-35.0); MEAN CORPUSCULAR HGB CONC 34.2 g/dl (31.0-37.0); RBC 3.82 10^6/uL (3.5-6.1); RED CELL DISTRIBUTION WIDTH 15.2 % (11.5-14.5); WHITE BLOOD COUNT 20.8 10^3/uL (4.5-11.0)
[2018-07-09 07:57] LABS: BLOOD UREA NITROGEN 14 mg/dL (7-21); CALCIUM 7.4 mg/dL (8.4-10.5); GFR NON-AFRICAN AMERICAN > 60
[2018-07-09] MEDS ORDERED: Potassium Chloride 20 mEq ER Tab PO ONE ×2 (08:17→14:00)
[2018-07-09] MEDS: Nystatin 100,000 Units/gm Topical Pow(15 gm) TOP SCH ×2 (10:00→17:35)
[2018-07-09] MEDS: Enoxaparin 30 mg Syringe SC SCH (10:07)
[2018-07-09] MEDS: Metoprolol Succinate 25 mg XL Tab PO SCH (10:08)
[2018-07-09] MEDS: Vancomycin 25 MG/ML PO SCH ×4 (10:09→23:22)
[2018-07-09] MEDS: Verapamil 180 mg ER Tab PO SCH (10:11)
--- NOTE | 2018-07-09 12:18 | CP.PCM.PN ---
<Khari Wiley - Last Filed: 07/09/18 12:15> Subjective - Date & Time of Evaluation Date of Evaluation: 07/09/18 Time of Evaluation: 12:15 - Subjective Subjective: PGY-2 GI progress note for Dr Grey No acute events overnight. Appeared comfortable. Still with diarrhea but improved. Respiration was easy and non-labored. Tolerating solid foods. Davis in place. Clinically much improved. Objective - Vital Signs/Intake and Output Vital Signs (last 24 hours): Temp Pulse Resp BP Pulse Ox 98.2 F 100 H 188 H 131/61 91 L 07/09/18 06:00 07/09/18 10:11 07/09/18 06:00 07/09/18 10:11 07/09/18 06:00 Intake and Output: 07/09/18 07/09/18 06:59 18:59 Intake Total 120 Output Total 200 Balance -200 120 - Medications Medications: Current Medications Acetaminophen (Tylenol 325mg Tab) 650 mg PO Q6H PRN PRN Reason: Fever >100.4 F Last Admin: 07/09/18 06:38 Dose: 650 mg Enoxaparin Sodium (Lovenox) 30 mg SC DAILY [facility]; Protocol Last Admin: 07/09/18 10:07 Dose: 30 mg Furosemide (Lasix) 40 mg PO DAILY [facility] Last Admin: 07/09/18 10:06 Dose: 40 mg Metronidazole (Flagyl) 500 mg in 100 mls @ 100 mls/hr IVPB Q8 [facility]; Protocol Last Admin: 07/09/18 05:29 Dose: 100 mls/hr Levalbuterol HCl (Xopenex) 1.25 mg IH TIDRESP [facility] Last Admin: 07/09/18 07:21 Dose: 1.25 mg Metoprolol Succinate (Toprol Xl) 25 mg PO BRK [facility] Last Admin: 07/09/18 10:08 Dose: 25 mg Nystatin (Nystop Topical Powder) 1 gm TOP BID [facility] Last Admin: 07/08/18 17:52 Dose: 1 appl Ondansetron HCl (Zofran Inj) 4 mg IVP Q6H PRN PRN Reason: Nausea/Vomiting Pantoprazole Sodium (Protonix Ec Tab) 40 mg PO 0600 [facility] Last Admin: 07/09/18 05:29 Dose: 40 mg Potassium Chloride (K-Dur 20 Meq Er Tab) 40 meq PO ONCE ONE Stop: 07/09/18 14:01 Vancomycin HCl (Vancocin 25 Mg/Ml (Oral Use)) 500 mg PO QID [facility]; Protocol Last Admin: 07/09/18 10:09 Dose: 500 mg Verapamil HCl (Calan Sr Tab) 180 mg PO DAILY [facility] Last Admin: 07/09/18 10:11 Dose: 180 mg Zolpidem Tartrate (Ambien) 5 mg PO HS PRN; Protocol PRN Reason: Insomnia Last Admin: 07/08/18 20:26 Dose: 5 mg - Labs Labs: 07/09/18 07:00 07/09/18 07:00 PT 13.9 SECONDS (9.4-12.5) H 07/01/18 01:30 INR 1.21 07/01/18 01:30 APTT 33.6 Seconds (25.1-36.5) 07/01/18 01:30 - Additional Findings Additional findings: - Constitutional Appears: Well, Non-toxic, No Acute Distress - Head Exam Head Exam: ATRAUMATIC, NORMAL INSPECTION - Eye Exam Eye Exam: EOMI, Normal appearance, PERRL. absent: Scleral icterus - ENT Exam ENT Exam: Mucous Membranes Moist - Respiratory Exam Respiratory Exam: Rhonchi. absent: Clear to Auscultation Bilateral, Rales, Wheezes - Cardiovascular Exam Cardiovascular Exam: Tachy, IRREGULAR RHYTHM, +S1, +S2, Systolic Murmur - GI/Abdominal Exam GI & Abdominal Exam: Normal Bowel Sounds, Soft, Tenderness. absent: Distended, Firm, Guarding, Hernia - Extremities Exam Additional comments: Positive for contractures. Stigmata of cerebral palsy. rheumatoid palsy of hands/wrists - Neurological Exam Neurological exam: Alert, CN II-XII Intact, Oriented x3 - Skin Skin Exam: Normal Color, Warm Assessment and Plan - Assessment and Plan (Free Text) Plan: Mrs Faustin is a 83 year old totally dependent female, who's past medical history includes GI bleed, cerebral palsy, hypertension, and CVA, presents to the emergency department from [facility] for evaluation of fever and decrease urine output: #C. Diff Colitis # Psuedomembranous Colitis -most prominent in right upper quadrant, also with fever and leukocytosis and hypotension -cdiff antigen and toxin positive -abdominal ultrasound 07/01 * gallstones, collapsed gallbladder, gallbladder wall edema, no sonographic flanagan's sign or pericholecystic fluid, common bile duct measures 14mm with no stones -CT abd/pelvis po contrast 07/01 * mural thickening throughout colon consistent with colitis most severe in si gmoid, large hiatal hernia, mural thickening in herniated stomach consistent with gastritis -biliary hida scan 07/01 * normal -Abd xray 07/03 * mucosal edema in descending colon -MRCP 07/03 * gallstones. CBD 13mm. NO obvious choledocolithiasis. * No recommendations for ERCP. 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 Solis and Dr. Johnson #Paraesophageal Hernia -Large paraesophageal hernia with significant portion of the stomach in the chest Seen and discussed with Dr Grey. <Erika Grey V - Last Filed: 07/10/18 00:07> Objective - Vital Signs/Intake and Output Vital Signs (last 24 hours): Temp Pulse Resp BP Pulse Ox 97.9 F 86 19 116/65 93 L 07/09/18 23:19 07/09/18 23:19 07/09/18 23:19 07/09/18 23:19 07/09/18 23:19 Intake and Output: 07/09/18 07/10/18 18:59 06:59 Intake Total 120 Balance 120 - Medications Medications: Current Medications Acetaminophen (Tylenol 325mg Tab) 650 mg PO Q6H PRN PRN Reason: Fever >100.4 F Last Admin: 07/09/18 17:43 Dose: 650 mg Enoxaparin Sodium (Lovenox) 30 mg SC DAILY [facility]; Protocol Last Admin: 07/09/18 10:07 Dose: 30 mg Furosemide (Lasix) 40 mg PO DAILY [facility] Last Admin: 07/09/18 10:06 Dose: 40 mg Metronidazole (Flagyl) 500 mg in 100 mls @ 100 mls/hr IVPB Q8 [facility]; Protocol Last Admin: 07/09/18 22:07 Dose: 100 mls/hr Levalbuterol HCl (Xopenex) 1.25 mg IH TIDRESP [facility] Last Admin: 07/09/18 20:59 Dose: 1.25 mg Metoprolol Succinate (Toprol Xl) 25 mg PO BRK [facility] Last Admin: 07/09/18 10:08 Dose: 25 mg Nystatin (Nystop Topical Powder) 1 gm TOP BID [facility] Last Admin: 07/09/18 17:35 Dose: 1 appl Ondansetron HCl (Zofran Inj) 4 mg IVP Q6H PRN PRN Reason: Nausea/Vomiting Pantoprazole Sodium (Protonix Ec Tab) 40 mg PO 0600 [facility] Last Admin: 07/09/18 05:29 Dose: 40 mg Vancomycin HCl (Vancocin 25 Mg/Ml (Oral Use)) 500 mg PO QID [facility]; Protocol Last Admin: 07/09/18 23:22 Dose: 500 mg Verapamil HCl (Calan Sr Tab) 180 mg PO DAILY [facility] Last Admin: 07/09/18 10:11 Dose: 180 mg Zolpidem Tartrate (Ambien) 5 mg PO HS PRN; Protocol PRN Reason: Insomnia Last Admin: 07/09/18 22:07 Dose: 5 mg - Labs Labs: 07/09/18 07:00 07/09/18 07:00 PT 13.9 SECONDS (9.4-12.5) H 07/01/18 01:30 INR 1.21 07/01/18 01:30 APTT 33.6 Seconds (25.1-36.5) 07/01/18 01:30 Attending/Attestation - Attestation I have personally seen and examined this patient.: Yes I have fully participated in the care of the patient.: Yes I have reviewed all pertinent clinical information, including history, physical exam and plan: Yes Notes (Text): This is an addendum to GI followup report dictated by the Thread Twister. The patient was seen and evaluated earlier. Medical records, lab studies, imagings were reviewed. Last 24 hours events reviewed. Agreed with the above treatment plan as outlined in Thread [employer]ister 's notes with the addition of the following 07/10/18 00:07
--- NOTE | 2018-07-09 12:32 | PN ---
DATE: 07/09/2018 SUBJECTIVE: The patient is 83 years old, seen and examined. She seems to be doing well, but according to nurse, when she swallows, after that she sound very congested. We will order for swallowing eval. PHYSICAL EXAMINATION: GENERAL: Otherwise, on examination, she is awake and alert. She states every time she eats, she gets bowel movement. VITAL SIGNS: She is afebrile, pulse 100, respirations 21, blood pressure 131/61. LUNGS: Bilateral fair airflow. Soft crackle in upper lung region. HEART: S1 and S2 audible. Positive murmur. No gallop. ABDOMEN: Soft. Slight epigastric discomfort. Otherwise, no hepatosplenomegaly. No rebound tenderness. EXTREMITIES: Bilateral foot deformity. NEUROLOGICAL: She is awake and alert, able to communicate, but has dysphasia. LABORATORY EXAM: WBC is 20.8, hemoglobin 11.6, hematocrit 33.9, platelet 421. Chemistry: Sodium 138, potassium 3.2, chloride 109, CO2 of 21, BUN 14, creatinine 0.5, blood sugar of 108, procalcitonin is 1.63. CT of the chest was done yesterday that shows mid right upper lobe discoid atelectasis. Large bilateral pleural effusion with associated compressive atelectasis at the lung bases. ASSESSMENT: 1. History of cerebral palsy. 2. Clostridium difficile colitis. 3. Cholelithiasis. 4. Bilateral pleural effusion. 5. Large hiatal hernia. 6. Dysphasia. 7. Possible dysphagia. PLAN: I will request for swallowing eval. Currently, the patient is on metronidazole and p.o. vancomycin. We will continue nebulizer treatment. Get Dr. Lisandro Robles to evaluate if we need to do pleural tap. I will also request for swallowing eval. Also, I will discuss with the patient's niece, who is a golf ball molder in [place]. Mi Solis MD
--- NOTE | 2018-07-09 18:12 | PN ---
DATE: 07/09/2018 TIME: 01:45 p.m. SUBJECTIVE: I reviewed the patient's recent CT scan. She has a large hiatal hernia. There are small layering pleural effusions bilaterally without evidence of loculation. There is atelectasis and air bronchograms noted at the bases posteriorly. The pleural fluid is not significant enough to warrant diagnostic or therapeutic thoracentesis. If the effusions enlarge on repeat imaging, the patient can be reevaluated for thoracentesis. Lisandro Robles MD MTDD
--- NOTE | 2018-07-09 22:43 | CP.PCM.PCO ---
Physician Communication Note - Physician Communication Note Physician Communication Note: Swallowing plan to be initiated/No surgery now
[2018-07-10] MEDS: metroNIDAZOLE IV 500 mg/100 ml 500 MG/100 ML BAG IVPB SCH ×3 (06:19→21:25)
[2018-07-10] MEDS: Pantoprazole 40 mg EC Tab PO SCH (06:19)
--- NOTE | 2018-07-10 06:35 | CP.PCM.PN ---
<Norma Rios - Last Filed: 07/10/18 11:39> Subjective - Date & Time of Evaluation Date of Evaluation: 07/10/18 Time of Evaluation: 07:00 - Subjective Subjective: Infectious Disease Progress Note for Sandra Boyce PGY3 Patient seen and examined at bedside. As per nursing staff, patient had an episode of watery diarrhea this AM. She is resting comfortably in bed and is afebrile. Objective - Vital Signs/Intake and Output Vital Signs (last 24 hours): Temp Pulse Resp BP Pulse Ox 97.9 F 86 19 116/65 93 L 07/09/18 23:19 07/09/18 23:19 07/09/18 23:19 07/09/18 23:19 07/09/18 23:19 Intake and Output: 07/09/18 07/10/18 18:59 06:59 Intake Total 120 Output Total 200 Balance 120 -200 - Medications Medications: Current Medications Acetaminophen (Tylenol 325mg Tab) 650 mg PO Q6H PRN PRN Reason: Fever >100.4 F Last Admin: 07/09/18 17:43 Dose: 650 mg Enoxaparin Sodium (Lovenox) 30 mg SC DAILY [facility]; Protocol Last Admin: 07/09/18 10:07 Dose: 30 mg Furosemide (Lasix) 40 mg PO DAILY [facility] Last Admin: 07/09/18 10:06 Dose: 40 mg Metronidazole (Flagyl) 500 mg in 100 mls @ 100 mls/hr IVPB Q8 [facility]; Protocol Last Admin: 07/10/18 06:19 Dose: 100 mls/hr Levalbuterol HCl (Xopenex) 1.25 mg IH TIDRESP [facility] Last Admin: 07/09/18 20:59 Dose: 1.25 mg Metoprolol Succinate (Toprol Xl) 25 mg PO BRK [facility] Last Admin: 07/09/18 10:08 Dose: 25 mg Nystatin (Nystop Topical Powder) 1 gm TOP BID [facility] Last Admin: 07/09/18 17:35 Dose: 1 appl Ondansetron HCl (Zofran Inj) 4 mg IVP Q6H PRN PRN Reason: Nausea/Vomiting Pantoprazole Sodium (Protonix Ec Tab) 40 mg PO 0600 [facility] Last Admin: 07/10/18 06:19 Dose: 40 mg Vancomycin HCl (Vancocin 25 Mg/Ml (Oral Use)) 500 mg PO QID [facility]; Protocol Last Admin: 07/09/18 23:22 Dose: 500 mg Verapamil HCl (Calan Sr Tab) 180 mg PO DAILY [facility] Last Admin: 07/09/18 10:11 Dose: 180 mg Zolpidem Tartrate (Ambien) 5 mg PO HS PRN; Protocol PRN Reason: Insomnia Last Admin: 07/09/18 22:07 Dose: 5 mg - Labs Labs: 07/09/18 07:00 07/09/18 07:00 PT 13.9 SECONDS (9.4-12.5) H 07/01/18 01:30 INR 1.21 07/01/18 01:30 APTT 33.6 Seconds (25.1-36.5) 07/01/18 01:30 - Constitutional Appears: No Acute Distress, Chronically Ill - Head Exam Head Exam: ATRAUMATIC, NORMAL INSPECTION, NORMOCEPHALIC - Eye Exam Eye Exam: Normal appearance, PERRL Pupil Exam: NORMAL ACCOMODATION, PERRL - ENT Exam ENT Exam: Mucous Membranes Moist - Respiratory Exam Respiratory Exam: Rales, NORMAL BREATHING PATTERN. absent: Rhonchi, Wheezes - Cardiovascular Exam Cardiovascular Exam: REGULAR RHYTHM, +S1, +S2. absent: Gallop, Rubs, Murmur - GI/Abdominal Exam GI & Abdominal Exam: Soft, Tenderness (LLQ), Normal Bowel Sounds. absent: Rigid, Mass, Rebound - Neurological Exam Neurological Exam: Alert, Awake - Psychiatric Exam Psychiatric exam: Normal Affect, Normal Mood - Skin Skin Exam: Dry, Warm Assessment and Plan - Assessment and Plan (Free Text) Assessment: 1. Pseudomembranous colitis - first occurrence 2. Bilateral pleural effusions with Atelectasis 3. Cerebral palsy 4. CVA 5. RA 6. Hx of GI bleed. Plan: Labs and imaging reviewed. Continue PO Vancomycin day #8 out of 10-14 days. Will continue Flagyl (day #8) until diarrhea has resolved. Discussed case with Dr. Solis. Will continue to monitor clinically. Case seen, discussed and reviewed with Dr. Elfego Rios PGY3 <Jamel Telles - Last Filed: 07/10/18 12:47> Objective - Vital Signs/Intake and Output Vital Signs (last 24 hours): Temp Pulse Resp BP Pulse Ox 97.9 F 89 18 102/50 L 97 07/10/18 06:00 07/10/18 06:00 07/10/18 06:00 07/10/18 10:53 07/10/18 06:00 Intake and Output: 07/10/18 07/10/18 06:59 18:59 Output Total 200 Balance -200 - Medications Medications: Current Medications Acetaminophen (Tylenol 325mg Tab) 650 mg PO Q6H PRN PRN Reason: Fever >100.4 F Last Admin: 07/09/18 17:43 Dose: 650 mg Enoxaparin Sodium (Lovenox) 30 mg SC DAILY [facility]; Protocol Last Admin: 07/10/18 10:53 Dose: 30 mg Furosemide (Lasix) 40 mg PO DAILY [facility] Last Admin: 07/10/18 10:53 Dose: Not Given Metronidazole (Flagyl) 500 mg in 100 mls @ 100 mls/hr IVPB Q8 [facility]; Protocol Last Admin: 07/10/18 06:19 Dose: 100 mls/hr Levalbuterol HCl (Xopenex) 1.25 mg IH TIDRESP [facility] Last Admin: 07/10/18 07:17 Dose: 1.25 mg Metoprolol Succinate (Toprol Xl) 25 mg PO BRK [facility] Last Admin: 07/10/18 10:53 Dose: Not Given Nystatin (Nystop Topical Powder) 1 gm TOP BID [facility] Last Admin: 07/09/18 17:35 Dose: 1 appl Ondansetron HCl (Zofran Inj) 4 mg IVP Q6H PRN PRN Reason: Nausea/Vomiting Pantoprazole Sodium (Protonix Ec Tab) 40 mg PO 0600 [facility] Last Admin: 07/10/18 06:19 Dose: 40 mg Vancomycin HCl (Vancocin 25 Mg/Ml (Oral Use)) 500 mg PO QID [facility]; Protocol Last Admin: 07/10/18 11:00 Dose: 500 mg Verapamil HCl (Calan Sr Tab) 180 mg PO DAILY [facility] Last Admin: 07/10/18 10:51 Dose: Not Given Zolpidem Tartrate (Ambien) 5 mg PO HS PRN; Protocol PRN Reason: Insomnia Last Admin: 07/09/18 22:07 Dose: 5 mg - Labs Labs: 07/10/18 07:00 07/10/18 07:00 PT 13.9 SECONDS (9.4-12.5) H 07/01/18 01:30 INR 1.21 07/01/18 01:30 APTT 33.6 Seconds (25.1-36.5) 07/01/18 01:30 Assessment and Plan - Assessment and Plan (Free Text) Plan: Infectious Diseases Attending Physician Attestation Patient seen and examined, discussed with emergency medical dispatcher. I have reviewed the patient's history of present illness, past medical, family and social histories, personal history, physical exam, lab findings and imaging studies. I agree with the above findings, assessment and plan. In addition, will complete 10-14 days of IV Flagyl and PO Vancomycin for pseudomembranous colitis (day 8 today). Diarrhea is slowly improving and if the stools are more formed, can d/c IV Flagyl.
[2018-07-10] MEDS: Levalbuterol 1.25 MG/3 ML Inhal Soln UD IH SCH ×3 (07:17→19:37)
[2018-07-10 07:32] LABS: HEMOGLOBIN 10.7 g/dL (12.0-16.0); MEAN CELL VOLUME 89.9 fl (80.0-105.0); MEAN CORPUSCULAR HEMOGLOBIN 30.1 pg (25.0-35.0); MEAN CORPUSCULAR HGB CONC 33.5 g/dl (31.0-37.0); MEAN PLATELET VOLUME 9.8 fl (7.0-11.0); RBC 3.55 10^6/uL (3.5-6.1); RED CELL DISTRIBUTION WIDTH 15.4 % (11.5-14.5); WHITE BLOOD COUNT 18.3 10^3/uL (4.5-11.0)
[2018-07-10 07:47] LABS: ALB/GLOB RATIO 0.8 (1.1-1.8); ALBUMIN 2.2 g/dL (3.0-4.8); ALT/SGPT 23 U/L (7-56); AST/SGOT 16 U/L (14-36); BLOOD UREA NITROGEN 16 mg/dL (7-21); CALCIUM 7.5 mg/dL (8.4-10.5); GFR NON-AFRICAN AMERICAN > 60
[2018-07-10] MEDS: Verapamil 180 mg ER Tab PO SCH (10:51)
[2018-07-10] MEDS: Enoxaparin 30 mg Syringe SC SCH (10:53)
[2018-07-10] MEDS: Metoprolol Succinate 25 mg XL Tab PO SCH (10:53)
[2018-07-10] MEDS: Vancomycin 25 MG/ML PO SCH ×4 (11:00→21:26)
--- NOTE | 2018-07-10 12:24 | PN ---
DATE: 07/10/2018 SUBJECTIVE: The patient is 83 years old, seen and examined. Awake, alert, oriented. She states she goes for bowel movement after each times she eat. No abdominal pain. Does have scanty cough with gurgling in the throat. PHYSICAL EXAMINATION: VITAL SIGNS: She is afebrile, pulse 89, respirations 18, blood pressure 102/50. LUNGS: Bilateral fair airflow. No rhonchi or crackle. HEART: S1 and S2 audible. ABDOMEN: Soft. Nontender. No rebound. No guarding. NEUROLOGICAL: The patient is awake and alert, able to communicate. She has dysphasia and dysphagia. EXTREMITIES: Bilateral foot deformity. LABORATORY EXAM: WBC 18.3, hemoglobin 10.7, hematocrit 31.9, platelet of 418. Chemistry: Sodium 138, potassium 3.8, chloride 111, CO2 of 22, BUN 16, creatinine 0.6, blood sugar of 93, procalcitonin is 1.63. Blood cultures are negative. Stool cultures are negative. Stool for C. diff is negative. ASSESSMENT: 1. Clostridium difficile colitis secondary to Vantin that has been given to treat her Klebsiella urinary tract infection in the care home. The patient seems to have gastrocolic reflux. Still, when she eats, she had to have bowel movement. They are semisolid, watery. 2. Cerebral palsy. 3. Bilateral foot and leg deformity. 4. Brief episode of paroxysmal atrial fibrillation. 5. Dysphagia with risk of aspiration. 6. Hypertension. 7. Hyperlipidemia. PLAN: We will change the patient's diet to diarrhea management and low-fiber diet. I will continue her on verapamil. She is currently on metronidazole and p.o. vancomycin. P.o. vancomycin has been changed from 250 to 500. Continue nebulizer treatment. We will follow up CBC and CMP in the a.m. Possible discharge in the a.m. Mi Solis MD
[2018-07-10 14:55] VITALS: RESP 20
--- NOTE | 2018-07-10 15:30 | CP.PCM.PN ---
<Khari Wiley - Last Filed: 07/10/18 15:28> Subjective - Date & Time of Evaluation Date of Evaluation: 07/10/18 Time of Evaluation: 15:28 - Subjective Subjective: PGY-[address] progress note for Dr Grey. No acute events noted overnight. Had an episode of diarrhea this morning. Stated she had mild pain in lower abdomen after eating - stated it is not heartburn. Denied fevers. Tolerating diet. Objective - Vital Signs/Intake and Output Vital Signs (last 24 hours): Temp Pulse Resp BP Pulse Ox 97.2 F L 96 H 20 116/62 92 L 07/10/18 14:00 07/10/18 14:00 07/10/18 14:00 07/10/18 14:00 07/10/18 14:00 Intake and Output: 07/10/18 07/10/18 06:59 18:59 Output Total 200 Balance -200 - Medications Medications: Current Medications Acetaminophen (Tylenol 325mg Tab) 650 mg PO Q6H PRN PRN Reason: Fever >100.4 F Last Admin: 07/09/18 17:43 Dose: 650 mg Enoxaparin Sodium (Lovenox) 30 mg SC DAILY [facility]; Protocol Last Admin: 07/10/18 10:53 Dose: 30 mg Furosemide (Lasix) 40 mg PO DAILY [facility] Last Admin: 07/10/18 10:53 Dose: Not Given Metronidazole (Flagyl) 500 mg in 100 mls @ 100 mls/hr IVPB Q8 [facility]; Protocol Last Admin: 07/10/18 14:12 Dose: 100 mls/hr Levalbuterol HCl (Xopenex) 1.25 mg IH TIDRESP [facility] Last Admin: 07/10/18 13:11 Dose: 1.25 mg Metoprolol Succinate (Toprol Xl) 25 mg PO BRK [facility] Last Admin: 07/10/18 10:53 Dose: Not Given Nystatin (Nystop Topical Powder) 1 gm TOP BID [facility] Last Admin: 07/09/18 17:35 Dose: 1 appl Ondansetron HCl (Zofran Inj) 4 mg IVP Q6H PRN PRN Reason: Nausea/Vomiting Pantoprazole Sodium (Protonix Ec Tab) 40 mg PO 0600 [facility] Last Admin: 07/10/18 06:19 Dose: 40 mg Vancomycin HCl (Vancocin 25 Mg/Ml (Oral Use)) 500 mg PO QID [facility]; Protocol Last Admin: 07/10/18 14:12 Dose: 500 mg Verapamil HCl (Calan Sr Tab) 180 mg PO DAILY [facility] Last Admin: 07/10/18 10:51 Dose: Not Given Zolpidem Tartrate (Ambien) 5 mg PO HS PRN; Protocol PRN Reason: Insomnia Last Admin: 07/09/18 22:07 Dose: 5 mg - Labs Labs: 07/10/18 07:00 07/10/18 07:00 PT 13.9 SECONDS (9.4-12.5) H 07/01/18 01:30 INR 1.21 07/01/18 01:30 APTT 33.6 Seconds (25.1-36.5) 07/01/18 01:30 - Additional Findings Additional findings: - Constitutional Appears: Well, Non-toxic, No Acute Distress - Head Exam Head Exam: ATRAUMATIC, NORMAL INSPECTION - Eye Exam Eye Exam: EOMI, Normal appearance, PERRL. absent: Scleral icterus - ENT Exam ENT Exam: Mucous Membranes Moist - Respiratory Exam Respiratory Exam: Rhonchi. absent: Clear to Auscultation Bilateral, Rales, Wheezes - Cardiovascular Exam Cardiovascular Exam: Tachy, IRREGULAR RHYTHM, +S1, +S2, Systolic Murmur - GI/Abdominal Exam GI & Abdominal Exam: Normal Bowel Sounds, Soft, Tenderness. absent: Distended, Firm, Guarding, Hernia - Extremities Exam Additional comments: Positive for contractures. Stigmata of cerebral palsy. rheumatoid palsy of hands/wrists - Neurological Exam Neurological exam: Alert, CN II-XII Intact, Oriented x3 - Skin Skin Exam: Normal Color, Warm Assessment and Plan - Assessment and Plan (Free Text) Plan: Mrs Faustin is a 83 year old totally dependent female, who's past medical history includes GI bleed, cerebral palsy, hypertension, and CVA, presents to the emergency department from [facility] for evaluation of fever and decrease urine output: #C. Diff Colitis # Psuedomembranous Colitis -most prominent in right upper quadrant, also with fever and leukocytosis and hypotension -cdiff antigen and toxin positive -abdominal ultrasound 07/01 * gallstones, collapsed gallbladder, gallbladder wall edema, no sonographic flanagan's sign or pericholecystic fluid, common bile duct measures 14mm with no stones -CT abd/pelvis po contrast 07/01 * mural thickening throughout colon consistent with colitis most severe in sigmoid, large hiatal hernia, mural thickening in herniated stomach consistent with gastritis -biliary hida scan 07/01 * normal -Abd xray 07/03 * mucosal edema in descending colon -MRCP 07/03 * gallstones. CBD 13mm. NO obvious choledocolithiasis. * No recommendations for ERCP. 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 Solis and Dr. Johnson #Paraesophageal Hernia -Large paraesophageal hernia with significant portion of the stomach in the chest Seen and discussed with Dr Grey. <Erika Grey V - Last Filed: 07/11/18 00:00> Objective - Vital Signs/Intake and Output Vital Signs (last 24 hours): Temp Pulse Resp BP Pulse Ox 97.2 F L 96 H 20 116/62 92 L 07/10/18 14:00 07/10/18 14:00 07/10/18 14:00 07/10/18 14:00 07/10/18 14:00 - Medications Medications: Current Medications Acetaminophen (Tylenol 325mg Tab) 650 mg PO Q6H PRN PRN Reason: Fever >100.4 F Last Admin: 07/10/18 20:32 Dose: 650 mg Acetaminophen (Tylenol 325mg Tab) 650 mg PO Q6H PRN PRN Reason: Pain, Mild (1-3) Last Admin: 07/10/18 17:08 Dose: 650 mg Enoxaparin Sodium (Lovenox) 30 mg SC DAILY [facility]; Protocol Last Admin: 07/10/18 10:53 Dose: 30 mg Furosemide (Lasix) 40 mg PO DAILY [facility] Last Admin: 07/10/18 10:53 Dose: Not Given Metronidazole (Flagyl) 500 mg in 100 mls @ 100 mls/hr IVPB Q8 [facility]; Protocol Last Admin: 07/10/18 21:25 Dose: 100 mls/hr Levalbuterol HCl (Xopenex) 1.25 mg IH TIDRESP [facility] Last Admin: 07/10/18 19:37 Dose: 1.25 mg Metoprolol Succinate (Toprol Xl) 25 mg PO BRK [facility] Last Admin: 07/10/18 10:53 Dose: Not Given Nystatin (Nystop Topical Powder) 1 gm TOP BID [facility] Last Admin: 07/09/18 17:35 Dose: 1 appl Ondansetron HCl (Zofran Inj) 4 mg IVP Q6H PRN PRN Reason: Nausea/Vomiting Pantoprazole Sodium (Protonix Ec Tab) 40 mg PO 0600 [facility] Last Admin: 07/10/18 06:19 Dose: 40 mg Vancomycin HCl (Vancocin 25 Mg/Ml (Oral Use)) 500 mg PO QID [facility]; Protocol Last Admin: 07/10/18 21:26 Dose: 25 mg Verapamil HCl (Calan Sr Tab) 180 mg PO DAILY [facility] Last Admin: 07/10/18 10:51 Dose: Not Given Zolpidem Tartrate (Ambien) 5 mg PO HS PRN; Protocol PRN Reason: Insomnia Last Admin: 07/10/18 21:27 Dose: 5 mg - Labs Labs: 07/10/18 07:00 07/10/18 07:00 PT 13.9 SECONDS (9.4-12.5) H 07/01/18 01:30 INR 1.21 07/01/18 01:30 APTT 33.6 Seconds (25.1-36.5) 07/01/18 01:30 Attending/Attestation - Attestation I have personally seen and examined this patient.: Yes I have fully participated in the care of the patient.: Yes I have reviewed all pertinent clinical information, including history, physical exam and plan: Yes Notes (Text): This is an addendum to GI progress report dictated by the GI Fellow.The patient was seen and examined earlier. Medical records, lab studies, imagings were reviewed. Last 24 hours events reviewed. Agreed with the above treatment plan as outlined in GI Fellow 's notes with the addition of the following 07/11/18 00:00
--- NOTE | 2018-07-10 18:26 | CP.PCM.PCO ---
Physician Communication Note - Physician Communication Note Physician Communication Note: Slowly improving/NO surgery recommended now
[2018-07-11] MEDS: Pantoprazole 40 mg EC Tab PO SCH (05:39)
[2018-07-11] MEDS: metroNIDAZOLE IV 500 mg/100 ml 500 MG/100 ML BAG IVPB SCH (05:39)
[2018-07-11] MEDS: Levalbuterol 1.25 MG/3 ML Inhal Soln UD IH SCH (07:53)
[2018-07-11 08:02] LABS: HEMOGLOBIN 9.9 g/dL (12.0-16.0); MEAN CORPUSCULAR HEMOGLOBIN 30.7 pg (25.0-35.0); MEAN CORPUSCULAR HGB CONC 33.7 g/dl (31.0-37.0); MEAN PLATELET VOLUME 9.7 fl (7.0-11.0); RBC 3.23 10^6/uL (3.5-6.1); RED CELL DISTRIBUTION WIDTH 15.6 % (11.5-14.5); WHITE BLOOD COUNT 16.1 10^3/uL (4.5-11.0)
[2018-07-11 08:24] LABS: BLOOD UREA NITROGEN 16 mg/dL (7-21); CALCIUM 7.3 mg/dL (8.4-10.5); GFR NON-AFRICAN AMERICAN > 60
[2018-07-11 09:14] VITALS: TEMP 98.4; O2SAT 93
[2018-07-11] MEDS: Verapamil 180 mg ER Tab PO SCH (09:23)
[2018-07-11] MEDS: Metoprolol Succinate 25 mg XL Tab PO SCH ×2 (09:23→10:29)
[2018-07-11 09:24] VITALS: BP 109/60; PULSE 90
[2018-07-11] MEDS: Enoxaparin 30 mg Syringe SC SCH (09:31)
[2018-07-11] MEDS: Vancomycin 25 MG/ML PO SCH (09:32)
[2018-07-11] MEDS ORDERED: Potassium Chloride 20 mEq/15 ml LIQ UD PO STA (10:07)
[2018-07-11] MEDS: Nystatin 100,000 Units/gm Topical Pow(15 gm) TOP SCH (10:29)
--- NOTE | 2018-07-11 13:50 | CP.PCM.PN ---
<Moisés Keller - Last Filed: 07/11/18 13:47> Subjective - Date & Time of Evaluation Date of Evaluation: 07/11/18 Time of Evaluation: 07:30 - Subjective Subjective: PGY6 GI Fellow Progress Note Patient seen and examined bedside this morning. The patient states she has no complaints this morning. She denies any abdominal pain. No nausea/vomiting. No events overnight. 12 system ROS performed and negative except where stated. Objective - Vital Signs/Intake and Output Vital Signs (last 24 hours): Temp Pulse Resp BP Pulse Ox 98.4 F 90 20 109/60 93 L 07/11/18 06:00 07/11/18 10:29 07/11/18 06:00 07/11/18 09:23 07/11/18 06:00 Intake and Output: 07/11/18 07/11/18 06:59 18:59 Intake Total 240 Output Total 150 Balance 90 - Labs Labs: 07/11/18 07:00 07/11/18 07:00 PT 13.9 SECONDS (9.4-12.5) H 07/01/18 01:30 INR 1.21 07/01/18 01:30 APTT 33.6 Seconds (25.1-36.5) 07/01/18 01:30 - Constitutional Appears: Non-toxic, No Acute Distress - Eye Exam Eye Exam: EOMI, PERRL - ENT Exam ENT Exam: Mucous Membranes Dry - Respiratory Exam Respiratory Exam: Clear to Ausculation Bilateral. absent: Rales, Rhonchi, Wheezes - Cardiovascular Exam Cardiovascular Exam: RRR, +S1, +S2 - GI/Abdominal Exam GI & Abdominal Exam: Soft, Normal Bowel Sounds. absent: Distended, Firm, Guarding, Rigid, Tenderness, Organomegaly - Extremities Exam Extremities Exam: Normal Inspection. absent: Pedal Edema - Neurological Exam Neurological Exam: Alert, Awake, Oriented x3 - Psychiatric Exam Psychiatric exam: Normal Affect, Normal Mood - Skin Skin Exam: Dry, Warm Assessment and Plan - Assessment and Plan (Free Text) Assessment: Patient is an 83yo female with PMHx significant for cerebral palsy, hypertension and CVA who [facility] for evaluation of fever and decreased urine output -C diff colitis -Large hiatal hernia Plan: -Continue therapy as ordered - Vancomycin 500mg PO QID -Pureed diet recommended -Surgical service following for hiatal hernia, no plan for intervention presently <QueErika callahan V - Last Filed: 07/13/18 00:18> Objective - Vital Signs/Intake and Output Vital Signs (last 24 hours): Temp Pulse Resp BP Pulse Ox 98.4 F 90 20 109/60 93 L 07/11/18 06:00 07/11/18 10:29 07/11/18 06:00 07/11/18 09:23 07/11/18 06:00 - Labs Labs: 07/11/18 07:00 07/11/18 07:00 PT 13.9 SECONDS (9.4-12.5) H 07/01/18 01:30 INR 1.21 07/01/18 01:30 APTT 33.6 Seconds (25.1-36.5) 07/01/18 01:30 Attending/Attestation - Attestation I have personally seen and examined this patient.: Yes I have fully participated in the care of the patient.: Yes I have reviewed all pertinent clinical information, including history, physical exam and plan: Yes
--- NOTE | 2018-07-11 14:05 | DS ---
HISTORY OF PRESENT ILLNESS: Patient is 83 years old, seen and examined, seems to be comfortable, did eat cream of wheat this morning. No nausea or vomiting noted. PHYSICAL EXAMINATION: VITAL SIGNS: She is afebrile, pulse 90, respirations 20 and blood pressure 109/60. LUNGS: Bilateral fair airflow. She has a soft crackle in upper lung region that is her pooled secretion in the back of the throat. ABDOMEN: Soft and nontender. No rebound. No guarding. NEUROLOGICAL: She is awake and alert, able to communicate, understands the situation. EXTREMITIES: Bilateral legs, no edema. Bilateral foot deformity. LABORATORY DATA: WBC 16.1, hemoglobin 9.9, hematocrit 29.4 and platelets 428,000. Chemistry: Sodium 139, potassium 3.5, chloride 110, CO2 of 23, BUN 16 and creatinine 0.5. Blood sugar of 80. ASSESSMENT: 1. Clostridium difficile colitis. 2. Cerebral palsy. 3. Hypertension. 4. Hypokalemia. PLAN: Patient seems to be clinically and hemodynamically stable. She will be transferred back to [facility] where she will receive vancomycin and metronidazole. I spoke to Dr. Grey, he would like to do endoscopy and family agrees, later on after she is stable and will finish 10 days of Flagyl and 14 days of vancomycin in the group home where she resides. Mi Solis MD
== END 2018-07-11 12:27 | DRG 872 ==
LOC: ED 00:46 → ERH 03:41 → 2RSO 04:26 → 5RSO 07-04 16:50
PROVIDERS: ADMIT Internal Medicine; ATTEND Internal Medicine
PROC: 3E0F7GC Introduction of Other Therapeutic Substance into Respiratory Tract, Via Natural or Artificial Opening (ICD-10-PCS; principal; 2018-07-02)
DX: A41.9 Sepsis, unspecified organism (principal); A04.72 Enterocolitis due to Clostridium difficile, not specified as recurrent; N39.0 Urinary tract infection, site not specified; J90 Pleural effusion, not elsewhere classified; J98.11 Atelectasis; K80.20 Calculus of gallbladder without cholecystitis without obstruction; G80.9 Cerebral palsy, unspecified; I10 Essential (primary) hypertension; R47.02 Dysphasia; M15.9 Polyosteoarthritis, unspecified; B96.1 Klebsiella pneumoniae [K. pneumoniae] as the cause of diseases classified elsewhere; M06.9 Rheumatoid arthritis, unspecified; I48.0 Paroxysmal atrial fibrillation; K44.9 Diaphragmatic hernia without obstruction or gangrene; I27.20 Pulmonary hypertension, unspecified; E87.6 Hypokalemia; I08.1 Rheumatic disorders of both mitral and tricuspid valves; E78.5 Hyperlipidemia, unspecified; K29.70 Gastritis, unspecified, without bleeding; M21.962 Unspecified acquired deformity of left lower leg; M21.961 Unspecified acquired deformity of right lower leg; Z86.73 Personal history of transient ischemic attack (TIA), and cerebral infarction without residual deficits; Z87.11 Personal history of peptic ulcer disease; Z78.9 Other specified health status; Z88.2 Allergy status to sulfonamides